=== PATIENT | male | born 1930 | race Caucasian/White ===

== ENCOUNTER 2016-08-01 23:31 | Emergency (ER) | payer MEDICARE, BC ==
[2016-08-01 23:38] VITALS: BP 143/68
--- NOTE | 2016-08-02 00:41 | EDM.PDOC ---
ED HPI GI/ABDOMINAL - General Chief Complaint: Abdominal Pain Stated Complaint: ABDOMINAL PAIN Time Seen by Provider: 08/02/16 00:04 Source of Information: Reports: Patient - History of Present Illness INITIAL COMMENTS - FREE TEXT/NARRATIVE: Patient sent here from [place] home for complaint of abdominal pain since yesterday. Says nothing improves it/makes it worse. Has had discomfort like this before but this time it is more persistent. No fevers. No vomiting but is nauseated at times. Feels like "something is in his throat" at times and this causes him to be less hungry. No fevers. Denies constipation. Had 3 small looser stools yesterday per patient. Has headache but this is long standing chronic on/off issue for him. He says tonight's headache is normal for him. No other HEENT changes. Denies chest pain/cough/acute respiratory changes. Had some soreness in left scapula yesterday but that resolved. No other muscle or body aches reported. No other complaints. Patient has been seen in past in ER for similar abdominal pain. Has large ventral hernia and scars from prior abdominal surgeries. Patient denies any changes in pain based on position/eating/drinking/going to bathroom. - Related Data Allergies/ADRs: Allergies Allergy/AdvReac Type Severity Reaction Status Date / Time Iodinated Contrast Media - Allergy Nausea and Verified 08/01/16 23:50 Oral and Vomiting [Iodinated Contrast Media - IV Dye] levofloxacin [From Levaquin] Allergy Cannot Verified 08/01/16 23:50 Remember Penicillins Allergy Hives Verified 08/01/16 23:50 Home Meds: Home Meds Aspirin [Halfprin] 81 mg PO QAM 09/19/14 [History] Brimonidine Tartrate [Brimonidine Tartrate 0.2% Ophth Soln] 1 drop EYEBOTH BID 09/19/14 [History] Cholecalciferol (Vitamin D3) [Vitamin D3] 400 unit PO QAM 09/19/14 [History] Latanoprost [Xalatan 0.005% Ophth Soln] 1 drop EYEBOTH BEDTIME 09/19/14 [History ] Multivitamin [Tab A Ritesh] 1 tab PO QAM 09/19/14 [History] Ranitidine [Zantac] 150 mg PO BID 09/19/14 [History] Simvastatin [Zocor] 20 mg PO BEDTIME 09/19/14 [History] Metoprolol Tartrate [Lopressor] 25 mg PO BID #0 09/23/14 [Rx] Acetaminophen [Tylenol Arthritis Pain] 1,300 mg PO BID 05/26/15 [History] Diclofenac Sodium [Voltaren 1% Gel] 1 applic TOP QID@07,11,15,19 05/26/15 [ History] Docusate Sodium [Colace] 1 tab PO TID 05/26/15 [History] Clopidogrel Bisulfate [Clopidogrel] 1 tab PO DAILY 08/15/15 [History] Finasteride [Proscar] 1 tab PO DAILY 08/15/15 [History] Oxybutynin Chloride [Ditropan Xl] 1 tab PO DAILY 08/15/15 [History] Tamsulosin HCl [Flomax] 1 cap PO BEDTIME 08/15/15 [History] Acetaminophen 325 mg PO DAILY PRN 08/16/15 [History] Methyl Salicylate/Menthol [Thera-Gesic Analgesic] 1 applic TOP ASDIRECTED PRN [History] Albuterol/Ipratropium [DuoNeb 3.0-0.5 MG/3 ML] 3 ml NEB Q4HRRT PRN #60 neb 08/20 [Rx] metFORMIN [Glucophage] 500 mg PO BID tablet 08/21/15 [Rx] Fluticasone Furoate [Flonase Sensimist] 2 sprays NASBOTH DAILY 08/01/16 [History ] Furosemide [Lasix] 40 mg PO DAILY 08/01/16 [History] Levothyroxine 75 mcg PO ACBREAKFAST 08/01/16 [History] Loratadine [Claritin] 10 mg NASBOTH DAILY PRN 08/01/16 [History] Loratadine [Claritin] 10 mg PO DAILY 08/01/16 [History] Sertraline [Zoloft] 100 mg PO DAILY 08/01/16 [History] ALPRAZolam [Xanax] 0.25 mg PO QAM PRN 08/02/16 [History] Magnesium Citrate 295 ml PO ASDIRECTED #2 solution 08/02/16 [Rx] Magnesium Hydroxide [Milk of Magnesia] 30 ml PO QID PRN 08/02/16 [History] Nystatin [Nystatin Crm] 15 gm TOP QID PRN 08/02/16 [History] Past Medical History HEENT History: Reports: Cataract, Glaucoma Cardiovascular History: Reports: Hypertension Respiratory History: Reports: COPD Gastrointestinal History: Reports: GERD, PUD Genitourinary History: Reports: BPH, Urinary incontinence Musculoskeletal History: Reports: Fracture Psychiatric History: Reports: Anxiety, Depression Endocrine/Metabolic History: Reports: Diabetes, type II - Infectious Disease History Infectious Disease History: Reports: MRSA - Past Surgical History HEENT Surgical History: Reports: Cataract surgery Musculoskeletal Surgical History: Reports: Hip replacement, Shoulder surgery Social & Family History - Tobacco Use Smoking Status *Q: Former Smoker Years of Tobacco use: 20 Used Tobacco, but Quit: Yes Month Tobacco Last Used: quit in 1959 Second Hand Smoke Exposure: No - Caffeine Use Caffeine Use: Reports: None - Alcohol Use Days Per Week of Alcohol Use: 0 - Recreational Drug Use Recreational Drug Use: No ED ROS GENERAL - Review of Systems Review Of Systems: See Below Constitutional: Reports: decreased appetite HEENT: Reports: No symptoms Respiratory: Reports: No Symptoms Cardiovascular: Reports: No symptoms. Denies: Chest pain GI/Abdominal: Reports: Abdominal pain, Nausea. Denies: Anorexia, Black stool, Bloody stool, Constipation, Difficulty swallowing, Distension, Hematemesis, Hematochezia, Melena, Mucous in stool, Vomiting : Reports: no symptoms Musculoskeletal: Reports: joint pain (left shoulder area yesterday) Skin: Reports: no symptoms Neurological: Reports: Headache. Denies: Confusion, Dizziness, Paresthesia, Change in Speech, Gait Disturbance Psychiatric: Reports: No symptoms ED EXAM, GI/ABD - Physical Exam Exam: See Below Exam Limited By: No limitations General Appearance: alert, WD/WN, no apparent distress Eyes: bilateral: normal appearance, EOMI Ears: normal external exam Nose: normal inspection Throat/Mouth: Normal inspection, Normal voice, No airway compromise Head: atraumatic, normocephalic Neck: normal inspection, supple, non-tender, full range of motion. No: lymphadenopathy (L), lymphadenopathy (R) Respiratory/Chest: no respiratory distress, no accessory muscle use, chest non- tender, crackles (at bases, moreso on right). No: wheezing, stridor Cardiovascular: regular rate, rhythm, no murmur GI/Abdominal: soft, hypoactive bowel sounds, tenderness (diffuse and equal complaint of tenderness all four quadrants. Non-focal and non-localizing. ). No : guarding, rebound, rigidity, aortic bruit Rectal (Males) Exam: Normal rectal tone, Heme - stool Back Exam: normal inspection. No: CVA tenderness (L), CVA tenderness (R) Extremities: normal inspection, non-tender Neurological: alert, no motor/sensory deficits Psychiatric: normal affect, normal mood Skin Exam: Warm, Dry, Intact, Normal color EKG INTERPRETATION EKG Date: 08/02/16 Time: 00:35 Rhythm: NSR Rate (beats/min): 69 [place]: normal P-wave: present QRS: normal ST-T: normal QT: normal Comparison: no change Course - Vital Signs Last Recorded V/S: Last Vital Signs Temp 36.7 C 08/01/16 23:31 Pulse 77 08/01/16 23:31 Resp 16 08/01/16 23:31 BP 143/68 H 08/01/16 23:31 Pulse Ox 99 08/01/16 23:31 - Orders/Labs/Meds Orders: Active Orders 24 hr Category Date Time Status EKG Documentation Completion [RC] ASDIRECTED Care 08/02/16 00:25 Active Abdomen Series w Chest 1V [CR] Stat Exams 08/02/16 00:23 Ordered OCCULT BLOOD DIAGNOSTIC [OP] Stat Lab 08/02/16 01:33 Ordered Labs: Laboratory Tests 08/02/16 08/02/16 08/02/16 Range/Units 00:30 00:30 00:30 WBC 11.1 H (4.0-10.2) K/uL RBC 4.27 L (4.33-5.41) M/uL Hgb 13.2 (13.1-16.8) g/dL Hct 41.1 (39.0-49.0) % MCV 96.3 (84.0-98.0) fL MCH 30.9 (28.2-33.3) pg MCHC 32.1 (31.7-36.0) g/dL RDW 13.5 (11.2-14.1) % Plt Count 242 (150-350) K/uL Neut % (Auto) 70.0 (45.0-80.0) % Lymph % (Auto) 16.8 (10.0-50.0) % [place] % (Auto) 8.6 (2.0-14.0) % Eos % (Auto) 3.4 (0.0-5.0) % Baso % (Auto) 1.2 (0.0-2.0) % Neut # (Auto) 7.78 H (1.40-7.00) K/uL Lymph # (Auto) 1.87 (0.50-3.50) K/uL [place] # (Auto) 0.95 (0.00-1.00) K/uL Eos # (Auto) 0.38 (0.00-0.50) K/uL Baso # (Auto) 0.13 (0.00-0.20) K/uL Sodium 139 (136-145) mmol/L Potassium 4.0 (3.5-5.1) mmol/L Chloride 100 (98-107) mmol/L Carbon Dioxide 28.5 (21.0-32.0) mmol/L BUN 28 H (7-18) mg/dL Creatinine 1.06 (0.51-1.17) mg/dL Est Cr Clr Drug Dosing 51.65 mL/min Estimated GFR (MDRD) > 60 mL/min Glucose 123 H (74-106) mg/dL Calcium 9.2 (8.5-10.1) mg/dL Total Bilirubin 0.3 (0.2-1.0) mg/dL AST 19 (15-37) U/L ALT 39 (12-78) U/L Alkaline Phosphatase 91 (46-116) IU/L Troponin I 0.007 (0.000-0.056) ng/mL Total Protein 7.3 (6.4-8.2) g/dL Albumin 4.2 (3.4-5.0) g/dL Specimen Type Urinblad Urine Color Yellow Urine Appearance Clear Urine pH 5.0 (5.0-9.0) Ur Specific [place] 1.015 (1.005-1.030) Urine Protein Negative (NEGATIVE) mg/dL Urine Glucose (UA) Negative (NEGATIVE) mg/dL Urine Ketones Negative (NEGATIVE) mg/dL Urine Occult Blood Trace-lysed H (NEGATIVE) Urine Nitrite Negative (NEGATIVE) Urine Bilirubin Negative (NEGATIVE) Urine Urobilinogen 0.2 (0.2-1.0) E.U./dL Ur Leukocyte Esterase Negative (NEGATIVE) Urine RBC 0-5 /HPF Urine WBC Not seen /HPF Ur Epithelial Cells Rare /LPF Urine Bacteria Occasional (NONE TO FEW) /HPF - Radiology Interpretation Free Text/Narrative:: Persistently elevated left hemidiaphragm on left that has been noted on previous films. Poorly defined cardiac and diaphragmatic borders inferiorly. CHF. Larger amount of stool noted in colon on right. - Re-Assessments/Exams Free Text/Narrative Re-Assessment/Exam: WBC slightly elevated. Chemistry/troponin/UA/EKG/CBC otherwise overall unremarkable. Xray shows larger amount of stool in colon on right. When patient told of this he said he has been having problems with having BMs and added "it doesn't want to move". When asked if he feels constipated, he said yes. Earlier during ROS he said "no" in response to this question. Plan at this time [facility] movement and see if this resolves his abdominal discomfort. Will recommend that he follow up with [facility] on Saturday if things have not improved. Chest film showed cardiac enlargement/CHF. Cannot rule out possible infiltrates inferiorly. Patient is not complaining of cough/SOB/fevers or other symptoms suggestive of pneumonia at this time. Departure - Departure Time of Disposition: 01:36 Disposition: DC/Tfer to SNF 03 Condition: good Clinical Impression: Abdominal pain Qualifiers: Abdominal location: generalized Qualified Code(s): R10.84 - Generalized abdominal pain Constipation Qualifiers: Constipation type: unspecified constipation type Qualified Code(s): K59.00 - Constipation, unspecified Prescriptions: Magnesium Citrate 295 ml PO ASDIRECTED #2 solution Referrals: Valentine Mayes PA [Primary Care Provider] - Forms: ED Department Discharge Additional Instructions: See if Mag Citrate therapy helps relieve patient's complaints of abdominal pain/ constipation. Watch for changes and follow up as needed. If no significant improvement have patient follow up with [facility] on Saturday. - My Orders Last 24 Hours: My Active Orders 08/02/16 00:23 Abdomen Series w Chest 1V [CR] Stat 08/02/16 00:25 EKG Documentation Completion [RC] ASDIRECTED 08/02/16 01:33 OCCULT BLOOD DIAGNOSTIC [OP] Stat - Assessment/Plan Last 24 Hours: My Active Orders 08/02/16 00:23 Abdomen Series w Chest 1V [CR] Stat 08/02/16 00:25 EKG Documentation Completion [RC] ASDIRECTED 08/02/16 01:33 OCCULT BLOOD DIAGNOSTIC [OP] Stat
[2016-08-02 00:54] LABS: CHLORIDE,CL 100 mmol/L (98-107); SODIUM,NA 139 mmol/L (136-145)
[2016-08-02] MEDS ORDERED: Magnesium Citrate Solution 296 ML Bottle PO ONE (01:59)
== END 2016-08-02 02:10 ==
LOC: LL.ED 23:31
DX: K59.00 Constipation, unspecified (principal); I10 Essential (primary) hypertension; J44.9 Chronic obstructive pulmonary disease, unspecified; K21.9 Gastro-esophageal reflux disease without esophagitis; F32.9 Major depressive disorder, single episode, unspecified; F41.9 Anxiety disorder, unspecified; E11.9 Type 2 diabetes mellitus without complications; Z87.891 Personal history of nicotine dependence; Z88.0 Allergy status to penicillin; Z79.899 Other long term (current) drug therapy; Z79.82 Long term (current) use of aspirin; Z88.8 Allergy status to other drugs, medicaments and biological substances
CPT/HCPCS: 36415; 74022; 80053; 81001; 82272; 84484; 85025; 93005; 99283; 99284; A9270

== ENCOUNTER 2017-06-13 11:52 | Day surgery (SDC) | payer MEDICARE, BC ==
[~2017-06-13 11:52] MED LIST: Lactated Ringers 1,000 ML IV SCH; Sodium Chloride 0.9% 10 ML Syringe FLUSH PRN
[2017-06-13] MEDS ORDERED: fentaNYL 100 MCG/2 ML SDV ONE ×2 (12:44→13:00)
[2017-06-13] MEDS ORDERED: Propofol 200 MG/20 ML SDV ONE ×2 (12:45→13:00)
[2017-06-13] MEDS ORDERED: Midazolam 1 MG/ML 2 ML SDV ONE ×2 (12:45→13:00)
--- NOTE | 2017-06-13 12:56 | PCM.PN ---
- General Info Date of Service: 06/13/17 - Review of Systems Systems Review Comment:: 86-year-old male referred by Valentine Mayes for upper endoscopy. Patient has been noticing more difficulty swallowing as well as some epigastric pain. I discussed the proposed upper endoscopy with the patient. He appears to understand and agrees to proceed. I have reviewed his recent history and physical and no significant changes are noted from that exam. He agrees to proceed accepting risks. - Patient Data Weight - Most Recent: 83.915 kg Lab Results Last 24 Hours: Laboratory Results - last 24 hr 06/13/17 Range/Units 12:25 POC Glucose 116 H (65-110) mg/dl Med Orders - Current: Current Medications Lactated Ringer's (Ringers, Lactated) 1,000 mls @ 125 mls/hr IV ASDIRECTED ANTOINETTE Sodium Chloride (Saline Flush) 10 ml FLUSH ASDIRECTED PRN PRN Reason: Keep Vein Open Discontinued Medications Fentanyl (Sublimaze) Confirm Administered Dose 100 mcg .ROUTE .STK-MED ONE Stop: 06/13/17 12:45 Midazolam HCl (Versed 1 Mg/Ml) Confirm Administered Dose 2 mg .ROUTE .STK-MED ONE Stop: 06/13/17 12:46 Propofol (Diprivan 20 Ml) Confirm Administered Dose 200 mg .ROUTE .STK-MED ONE Stop: 06/13/17 12:46 - Problem List Review Problem List Initiated/Reviewed/Updated: Yes - Assessment Assessment:: Dysphagia Epigastric pain
[2017-06-13] MEDS ORDERED: Lidocaine 2% 100 MG/5 ML Syringe ONE (13:00)
[2017-06-13] MEDS ORDERED: Lidocaine 2% 5 ML SDV ONE (13:00)
--- NOTE | 2017-06-13 13:45 | PCM.OPNOTE ---
- General Post-Op/Procedure Note Date of Surgery/Procedure: 06/13/17 Operative Procedure(s): EGD with Balloon Esophageal Dilation and Biopsy Findings: Small hiatal hernia with reflux esophagitis and mild esophageal stenosis Pre Op Diagnosis: Dysphagia Post-Op Diagnosis: Hiatal Hernia. Reflux Esophagitis. Esophageal stenosis Anesthesia Technique: MAC Primary Surgeon: Conner Michel Pathology: Biopsies of Gastric Antrum and Distal esophagus Output, Urine Amount: 0 EBL in mLs: 3 Complications: None Condition: Good Free Text/Narrative:: Intake & Output 06/12/17 06/13/17 06/13/17 22:59 06:59 14:59 Intake Total 500 Balance 500
--- NOTE | 2017-06-13 15:44 | OR ---
Date of Procedure: 06/13/2017 PREOPERATIVE DIAGNOSIS: Dysphagia. POSTOPERATIVE DIAGNOSES: Hiatal hernia with reflux esophagitis and esophageal stenosis. OPERATION PERFORMED: Esophagogastroduodenoscopy with biopsy and balloon esophageal dilation. INDICATIONS FOR SURGERY: This 86-year-old male has been having increasing difficulty with swallowing as well as some episodes of abdominal pain. He is referred for upper endoscopy. FINDINGS: The patient has a small hiatal hernia, estimated at 2 to 3 cm in size. There is a mild degree of irritation of the lower esophagus, just above this area, and mild stenosis at the GE junction. No evidence of abnormal growth or extrinsic or intrinsic masses noted. The remainder of the patient's stomach and his duodenum appeared normal. The upper portion of the stomach also appears normal and no abnormalities were seen in the oral or hypopharynx. DESCRIPTION OF PROCEDURE: The patient was taken to the operating room. He was given intravenous sedation and the esophagus was introduced into the oral cavity through the bite block. Examination as possible was carried out in the oral and hypopharynx, and after these areas were examined and felt to be clear, the esophagus was intubated under direct visualization with the gastroscope. This was advanced down through the esophagus, stomach, and into the duodenum, where examination to the 3rd portion was performed. After carefully examining the duodenum, the scope was withdrawn into the stomach, where full examination including retroflexed examination of the fundus was performed. Biopsies of the antrum were taken to rule out H. pylori. The GE junction and distal esophagus were examined and appeared that there may be a mild degree of stenosis here, so the dilating balloon was inserted and inflated to 54-[place] dilation performed of this region. Biopsies were also taken of this distal esophagus because the appearance of possible reflux esophagitis. The procedure was tolerated well by the patient, and at the end of the procedure, there were no visible signs of complication. The remainder of the esophagus looked normal as the scope was withdrawn. The patient was then taken from the operating room in satisfactory condition. ESTIMATED BLOOD LOSS: 3 mL. COMPLICATIONS: None. PROGNOSIS: Good. DEION Michel MD /[id number]
[2017-06-13 16:55] VITALS: BP 129/61
== END 2017-06-13 15:10 | disposition home or self-care (01) ==
LOC: LL.SDS 11:52
PROVIDERS: ATTEND Surgery
DX: K22.2 Esophageal obstruction (principal); K21.0 Gastro-esophageal reflux disease with esophagitis; K44.9 Diaphragmatic hernia without obstruction or gangrene; E11.9 Type 2 diabetes mellitus without complications; E78.00 Pure hypercholesterolemia, unspecified; I11.0 Hypertensive heart disease with heart failure; I50.9 Heart failure, unspecified; J30.9 Allergic rhinitis, unspecified; H40.10X0 Unspecified open-angle glaucoma, stage unspecified; J44.9 Chronic obstructive pulmonary disease, unspecified; M19.90 Unspecified osteoarthritis, unspecified site; E55.9 Vitamin D deficiency, unspecified; F32.9 Major depressive disorder, single episode, unspecified; F41.9 Anxiety disorder, unspecified; E03.9 Hypothyroidism, unspecified; N40.1 Benign prostatic hyperplasia with lower urinary tract symptoms; R35.1 Nocturia; G89.4 Chronic pain syndrome; I25.10 Atherosclerotic heart disease of native coronary artery without angina pectoris; Z86.73 Personal history of transient ischemic attack (TIA), and cerebral infarction without residual deficits; Z86.010 Personal history of colon polyps; Z88.0 Allergy status to penicillin; Z88.1 Allergy status to other antibiotic agents
CPT/HCPCS: 00731; 43239; 43249; 82962; J2250; J2704; J3010; J7120; 88305

== ENCOUNTER 2018-06-09 16:48 | Emergency (ER) | payer MEDICARE, BC ==
[2018-06-09] MEDS ORDERED: Famotidine 20 MG/2 ML SDV IVPUSH ONE (16:52)
[2018-06-09] MEDS ORDERED: Pantoprazole 40 MG Vial IVPUSH ONE (16:52)
[2018-06-09] MEDS ORDERED: Sodium Chloride 0.9% 10 ML Syringe FLUSH PRN (16:52)
--- NOTE | 2018-06-09 16:52 | EDM.PDOC ---
ED HPI GENERAL MEDICAL PROBLEM - General Chief Complaint: Abdominal Pain Stated Complaint: abdominal pain, body aches, increased psa Time Seen by Provider: 06/09/18 16:51 Source of Information: Reports: Patient, Longterm Records, Old Records ([facility] EMR. No paper hospital chart available.) History Limitations: Reports: No Limitations - History of Present Illness INITIAL COMMENTS - FREE TEXT/NARRATIVE: Patient was brought to the emergency room via transport vehicle from in [place] for progressive nonproductive cough during the last week with progressive generalized fatigue, weakness, and arthralgias. He did have a fever of 101 prior to arrival with O2 sat in the lower 80th percentile and mild dyspnea without wheezing or distress, however he was not transferred [facility]. He did get an influenza booster this season with no known exposure to infection. In addition, note that patient has been having some problems with urinary incontinence and recently diagnosed BPH with PSA elevation in the 11s. He denies any gross hematuria, colic, or other UTI symptoms. No recent history of heartburn, nausea, diarrhea, melena, gross hematochezia, or any food intolerance, including fatty foods, etc. , although he has had some nonspecific bilateral lower quadrant abdominal pain today. The patient denies any chest pain/pressure, heart flutter, dizziness, orthostasis, orthopnea, diaphoresis, paresthesias, recent decreased exercise tolerance, or any other anginal-type symptoms. He is a somewhat poor historian. Onset: Gradual Duration: Week(s): (As above) Location: Reports: Abdomen, Generalized. Denies: Head, Face, Neck, Chest, Back , Pelvis, Upper Extremity, Left, Upper Extremity, Right, Lower Extremity, Left, Radiates to Quality: Reports: Ache, Same as Previous Episode Severity: Moderate Improves with: Reports: None Worsens with: Reports: None Context: Reports: Other (As above). Denies: Sick Contact, Trauma Associated Symptoms: Reports: Cough, Fever/Chills, Shortness of Breath, Weakness , Other (Leg ulcer as below). Denies: Confusion, Chest Pain, cough w sputum, Diaphoresis, Headaches, Loss of Appetite, Malaise, Nausea/Vomiting, Seizure, Syncope Treatments SUPERVISOR CEREAL: Reports: Other (see below) (None) Generalized Pain Score (Numeric/FACES): 6 Bilateral Lower Abdominal Pain Score (Numeric/FACES): 6 - Related Data Allergies Allergy/AdvReac Type Severity Reaction Status Date / Time Iodinated Contrast- Oral and Allergy Nausea and Verified 06/09/18 16:56 IV Dye Vomiting [Iodinated Contrast Media - IV Dye] levofloxacin [From Levaquin] Allergy Cannot Verified 06/09/18 16:56 Remember Penicillins Allergy Hives Verified 06/09/18 16:56 Home Meds: Home Meds Aspirin [Halfprin] 81 mg PO QAM 09/19/14 [History] Brimonidine Tartrate [Brimonidine Tartrate 0.2% Ophth Soln] 1 drop EYEBOTH Q12H 09/19/14 [History] Cholecalciferol (Vitamin D3) [Vitamin D3] 400 unit PO QAM 09/19/14 [History] Latanoprost [Xalatan 0.005% Ophth Soln] 1 drop EYEBOTH BEDTIME 09/19/14 [History ] Simvastatin [Zocor] 20 mg PO BEDTIME 09/19/14 [History] Acetaminophen [Tylenol Arthritis Pain] 1,300 mg PO Q12H 05/26/15 [History] Diclofenac Sodium [Voltaren 1% Gel] 1 applic TOP QID@,,,05/26/15 [ History] Clopidogrel Bisulfate [Clopidogrel] 1 tab PO DAILY 08/15/15 [History] Finasteride [Proscar] 1 tab PO DAILY 08/15/15 [History] Oxybutynin Chloride [Ditropan Xl] 1 tab PO DAILY 08/15/15 [History] Tamsulosin HCl [Flomax] 1 cap PO BEDTIME 08/15/15 [History] Methyl Salicylate/Menthol [Thera-Gesic Analgesic] 1 applic TOP ASDIRECTED PRN [History] Furosemide [Lasix] 40 mg PO DAILY 08/01/16 [History] Levothyroxine 75 mcg PO ACBREAKFAST 08/01/16 [History] Sertraline [Zoloft] 100 mg PO DAILY 08/01/16 [History] Magnesium Hydroxide [Milk of Magnesia] 30 ml PO ASDIRECTED PRN 08/02/16 [History ] Nystatin [Nystatin Crm] 15 gm TOP QID PRN 08/02/16 [History] ALPRAZolam [Xanax] 0.25 mg PO Q12HR 06/13/17 [History] Metoprolol Tartrate [Lopressor] 25 mg PO Q12H 06/13/17 [History] Omeprazole Magnesium [Prilosec Otc] 20 mg PO DAILY 06/13/17 [History] metFORMIN [Glucophage] 500 mg PO Q12H 06/13/17 [History] Docusate Sodium [Colace] 100 mg PO DAILY PRN 06/09/18 [History] Past Medical History HEENT History: Reports: Allergic Rhinitis, Impaired Vision, Sinusitis, Other ( See Below) Other HEENT History: Chronic dry mouth. Recurrent allergic sinusitis. Patient wears glasses. Cardiovascular History: Reports: CAD, Heart Failure, High Cholesterol, Hypertension, Syncope Respiratory History: Reports: Bronchitis, Recurrent, COPD, Pneumonia, Recurrent Gastrointestinal History: Reports: Chronic Constipation, Colon Polyp, Diverticulosis, Gastritis, GERD, Helicobacter Pylori, PUD, Other (See Below) Other Gastrointestinal History: Sigmoid diverticulosis. Previous H. pylori infection with treatment status unknown. Dysphagia with history of esophageal stenosis requiring dilatation as below. Large chronic ventral abdominal hernia. Genitourinary History: Reports: BPH, Prostate Disorder, Retention, Urinary, Urinary Incontinence, UTI, Recurrent, Other (See Below) Other Genitourinary History: BPH with PSA elevation diagnosed in 2019. Musculoskeletal History: Reports: Arthritis, Back Pain, Chronic, Osteoarthritis , Other (See Below) Other Musculoskeletal History: Left rotator cuff tear. Chronic pain syndrome and myalgias Neurological History: Reports: Headaches, Chronic, TIA, Other (See Below) Other Neuro History: History of recurrent falls and nonspecific generalized weakness. 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 Psychiatric History: Reports: Anxiety, Depression, Panic Attack Endocrine/Metabolic History: Reports: Diabetes, Type II, Hypothyroidism, Vitamin D Deficiency Hematologic History: Reports: None Immunologic History: Reports: None Oncologic (Cancer) History: Reports: None Dermatologic History: Reports: None - Infectious Disease History Infectious Disease History: Reports: MRSA (Right leg ulcer) - Past Surgical History Head Surgeries/Procedures: Reports: None HEENT Surgical History: Reports: Cataract Surgery, Oral Surgery, Other (See Below) Other HEENT Surgeries/Procedures: Bilateral cataract surgery. Complete teeth extraction with complete dentures uppers and lowers. GI Surgical History: Reports: Colonoscopy, EGD, Other (See Below) Other GI Surgeries/Procedures: EGD with esophageal dilatation on 06/13/17. EGD and incomplete Colonoscopy to the ascending colon on 05/26/15. Musculoskeletal Surgical History: Reports: Hip Replacement, Shoulder Surgery, Other (See Below) Other Musculoskeletal Surgeries/Procedures:: Left hip TEP with patient denying previous total knee arthroplasty despite [facility] records. Social & Family History - Family History Family Medical History: Unobtainable - Tobacco Use Smoking Status *Q: Former Smoker Tobacco Use Within Last Twelve Months: No Packs/Tins Daily Comment: Stop smoking in 1959. Used Tobacco, but Quit: Yes Smoking Cessation Information Provided To Patient: No Second Hand Smoke Exposure: No Second Hand Smoke Education Provided: No - Caffeine Use Caffeine Use: Reports: None - Living Situation & Occupation Living situation: Reports: Extended Care Facility ( in [facility]) ED ROS GENERAL - Review of Systems Review Of Systems: ROS reveals no pertinent complaints other than HPI. ED EXAM, GENERAL - Physical Exam Exam: See Below Exam Limited By: No Limitations General Appearance: Alert, WD/WN, No Apparent Distress Eye Exam: Bilateral Eye: EOMI, Normal Fundi, Normal Inspection (No nystagmus. Patient wearing glasses.), PERRL Ears: Normal External Exam, Normal Canal, Normal TMs, Hearing Loss (Mild bilateral presbycusis) Nose: Clear Rhinorrhea (Mild bilateral) Throat/Mouth: Normal Lips, Normal Gums, Normal Oropharynx, Normal Voice, No Airway Compromise. No: Normal Teeth (Complete dentures uppers and lowers), Dysphagia, Perioral Cyanosis Head: Atraumatic, Normocephalic. No: Facial Swelling, Facial Tenderness Neck: Supple, Non-Tender, Full Range of Motion, Carotid Bruit (Mild bilateral carotid bruits). No: Lymphadenopathy (L), Lymphadenopathy (R), Thyromegaly Respiratory/Chest: No Respiratory Distress, No Accessory Muscle Use, Chest Non- Tender, Rales (Moderate bilateral basilar rales). No: Pleural Rub, Retractions Cardiovascular: Normal Peripheral Pulses, Regular Rate, Rhythm, No Gallop, No JVD, No Murmur, No Rub. No: No Edema (Dependent edema as below), Gallop/S3, Gallop/S4, Friction Rub Peripheral Pulses: 2+: Radial (L), Radial (R), Dorsalis Pedis (L), Dorsalis Pedis (R) GI/Abdominal: Soft, No Organomegaly, No Distention, No Abnormal Bruit, Pelvis Stable, Tender (Nonspecific mild bilateral lower quadrant palpation pain), Hernia (Stable by history 56 centimeter supraumbilical ventral wall abdominal hernia). No: Guarding, Rebound (Male) Exam: Deferred Rectal (Males) Exam: Normal Rectal Tone, BPH (Moderate nodular BPH especially in right superior region), Heme - Stool, Hemorrhoids (Grade 2 internal/external hemorrhoids), Prostate Nodule (As above). No: Fecal Impaction, Tenderness (No Damon space tenderness) Back Exam: Decreased Range of Motion (Mild secondary to arthritis), Other ( Moderate scoliosis). No: CVA Tenderness (L), CVA Tenderness (R), Muscle Spasm Extremities: Normal Range of Motion, Non-Tender, Pedal Edema (+1 bilateral pedal /pretibial edema), Other (1 centimeter in diameter superficial grade 12 ulcers 2 in the mid to distal anterior left tibial region with inspection after dressing removed). No: Lauren's Sign, Increased Warmth Neurological: Alert, Oriented, CN II-XII Intact, Normal Cognition, Normal Reflexes (Negative Babinski's), No Motor/Sensory Deficits, Other (Moderate Resting tremor, rigidity, and cogwheeling) Psychiatric: Anxious (Mild), Depressed Mood (Mild) Skin Exam: Wound/Incision (As above). No: Diaphoretic, Ecchymosis, Increased Warmth, Lymphangitis, Petechiae Lymphatic: No Adenopathy Course - Vital Signs Last Recorded V/S: Last Vital Signs Temp 37.3 C 06/09/18 20:00 Pulse 85 06/09/18 19:00 Resp 20 06/09/18 20:39 BP 122/60 06/09/18 20:39 Pulse Ox 98 06/09/18 20:39 Vital Signs - 24 hr 06/09/18 06/09/18 06/09/18 16:55 17:00 17:32 Temperature [ 38.1 C Temporal] Pulse, 88 Peripheral [ Left Pulse Oximetry] Respiratory 20 Rate Blood Pressure 113/49 L 133/51 L [Right Upper Arm] O2 Sat by Pulse 82 L 97 Oximetry 06/09/18 06/09/18 06/09/18 17:42 17:55 18:12 Temperature [ Temporal] Pulse, 83 94 86 Peripheral [ Left Pulse Oximetry] Respiratory 18 Rate Blood Pressure 121/53 L 112/59 L 119/50 L [Right Upper Arm] O2 Sat by Pulse 100 99 100 Oximetry 06/09/18 06/09/18 06/09/18 18:27 18:42 19:00 Temperature [ Temporal] Pulse, 90 88 85 Peripheral [ Left Pulse Oximetry] Respiratory Rate Blood Pressure 121/46 L 110/47 L 116/48 L [Right Upper Arm] O2 Sat by Pulse 99 99 99 Oximetry 06/09/18 06/09/18 06/09/18 19:15 19:29 19:45 Temperature [ Temporal] Pulse, Peripheral [ Left Pulse Oximetry] Respiratory 19 16 20 Rate Blood Pressure 117/50 L 110/43 L 109/46 L [Right Upper Arm] O2 Sat by Pulse 98 99 100 Oximetry 06/09/18 20:00 Temperature [ 37.3 C Temporal] Pulse, Peripheral [ Left Pulse Oximetry] Respiratory 19 Rate Blood Pressure 118/59 L [Right Upper Arm] O2 Sat by Pulse 99 Oximetry - Orders/Labs/Meds Orders: Active Orders 24 hr Category Date Time Status Bladder Scan [RC] ASDIRECTED Care 06/09/18 19:00 Active Cardiac Monitoring [RC] . DIRECTED Care 06/09/18 19:12 Active Oxygen Therapy, ED [RC] CONTINUOUS Care 06/09/18 16:55 Active Peripheral IV Care [RC] . DIRECTED Care 06/09/18 16:52 Active Nothing Per Oral Diet [DIET] Diet 06/09/18 Breakfast Active Abdomen Series w Chest 1V [CR] Stat Exams 06/09/18 16:52 Taken CULTURE BLOOD [BC] Stat Lab 06/09/18 17:00 Received CULTURE BLOOD [BC] Stat Lab 06/09/18 17:05 Received CULTURE STREP A CONFIRMATION [RM] Stat Lab 06/09/18 16:55 Results CULTURE URINE [] Stat Lab 06/09/18 20:25 Received CULTURE WOUND + SMEAR [RM] Stat Lab 06/09/18 18:17 Results STREP SCRN A RAPID W CULT CONF [RM] Stat Lab 06/09/18 16:55 Results Sodium Chloride 0.9% [Saline Flush] Med 06/09/18 16:52 Active 10 ml FLUSH ASDIRECTED PRN Blood Culture x2 Reflex Set [OM.PC] Urgent Oth 06/09/18 16:52 Ordered Obtain Past Medical Record [OM.PC] Urgent Oth 06/09/18 16:52 Active Peripheral IV Insertion Adult [OM.PC] Stat Oth 06/09/18 16:52 Ordered Resuscitation Status Stat Resus Stat 06/09/18 16:52 Ordered Medication Orders Sodium Chloride (Saline Flush) 10 ml FLUSH ASDIRECTED PRN PRN Reason: Keep Vein Open Last Admin: 06/09/18 19:45 Dose: 10 ml Labs: Laboratory Tests 06/09/18 06/09/18 06/09/18 Range/Units 17:00 17:05 17:05 WBC 9.4 (4.0-10.2) K/uL RBC 3.51 L (4.33-5.41) M/uL Hgb 10.2 L D (13.1-16.8) g/dL Hct 32.4 L (39.0-49.0) % MCV 92.3 D (84.0-98.0) fL MCH 29.1 (28.2-33.3) pg MCHC 31.5 L (31.7-36.0) g/dL RDW 13.8 (11.2-14.1) % Plt Count 219 (150-350) K/uL Neut % (Auto) 84.3 H (45.0-80.0) % Lymph % (Auto) 4.1 L (10.0-50.0) % Cole % (Auto) 9.4 (2.0-14.0) % Eos % (Auto) 1.7 (0.0-5.0) % Baso % (Auto) 0.5 (0.0-2.0) % Neut # (Auto) 7.88 H (1.40-7.00) K/uL Lymph # (Auto) 0.38 L (0.50-3.50) K/uL Cole # (Auto) 0.88 (0.00-1.00) K/uL Eos # (Auto) 0.16 (0.00-0.50) K/uL Baso # (Auto) 0.05 (0.00-0.20) K/uL PT (9.5-12.0) SEC INR APTT (21.0-31.3) SEC Sodium (136-145) mmol/L Potassium (3.5-5.1) mmol/L Chloride (98-107) mmol/L Carbon Dioxide (21.0-32.0) mmol/L BUN (7-18) mg/dL Creatinine (0.51-1.17) mg/dL Est Cr Clr Drug Dosing Estimated GFR (MDRD) mL/min Glucose (74-106) mg/dL Lactic Acid 1.2 (0.4-2.0) mmol/L Uric Acid (2.6-7.2) mg/dL Calcium (8.5-10.1) mg/dL Magnesium (1.8-2.4) mg/dL Total Bilirubin (0.2-1.0) mg/dL AST (15-37) U/L ALT (12-78) U/L Alkaline Phosphatase (46-116) IU/L Creatine Kinase (26-308) U/L Creatine Kinase Index (0.0-2.5) % CK-MB (CK-2) (0.00-3.60) ng/mL Troponin I (0.000-0.056) ng/mL NT-Pro-B Natriuret Pep (0-125) pg/mL Total Protein (6.4-8.2) g/dL Albumin (3.4-5.0) g/dL Amylase 20 L (25-115) U/L Lipase (73-393) U/L Specimen Type Urine Color Urine Appearance Urine pH (5.0-9.0) Ur Specific [place] (1.005-1.030) Urine Protein (NEGATIVE) mg/dL Urine Glucose (UA) (NEGATIVE) mg/dL Urine Ketones (NEGATIVE) mg/dL Urine Occult Blood (NEGATIVE) Urine Nitrite (NEGATIVE) Urine Bilirubin (NEGATIVE) Urine Urobilinogen (0.2-1.0) E.U./dL Ur Leukocyte Esterase (NEGATIVE) Urine RBC /HPF Urine WBC /HPF Ur Epithelial Cells /LPF Urine Bacteria (NONE TO FEW) /HPF 06/09/18 06/09/18 06/09/18 Range/Units 17:05 17:05 17:05 WBC (4.0-10.2) K/uL RBC (4.33-5.41) M/uL Hgb (13.1-16.8) g/dL Hct (39.0-49.0) % MCV (84.0-98.0) fL MCH (28.2-33.3) pg MCHC (31.7-36.0) g/dL RDW (11.2-14.1) % Plt Count (150-350) K/uL Neut % (Auto) (45.0-80.0) % Lymph % (Auto) (10.0-50.0) % Cole % (Auto) (2.0-14.0) % Eos % (Auto) (0.0-5.0) % Baso % (Auto) (0.0-2.0) % Neut # (Auto) (1.40-7.00) K/uL Lymph # (Auto) (0.50-3.50) K/uL Cole # (Auto) (0.00-1.00) K/uL Eos # (Auto) (0.00-0.50) K/uL Baso # (Auto) (0.00-0.20) K/uL PT 11.1 (9.5-12.0) SEC INR 1.0 APTT 33.6 H (21.0-31.3) SEC Sodium 137 (136-145) mmol/L Potassium 3.7 (3.5-5.1) mmol/L Chloride 101 (98-107) mmol/L Carbon Dioxide 27.7 (21.0-32.0) mmol/L BUN 27 H (7-18) mg/dL Creatinine 1.43 H (0.51-1.17) mg/dL Est Cr Clr Drug Dosing TNP Estimated GFR (MDRD) 47 mL/min Glucose 131 H (74-106) mg/dL Lactic Acid (0.4-2.0) mmol/L Uric Acid 6.7 (2.6-7.2) mg/dL Calcium 8.9 (8.5-10.1) mg/dL Magnesium 1.6 L (1.8-2.4) mg/dL Total Bilirubin 0.3 (0.2-1.0) mg/dL AST 18 (15-37) U/L ALT 21 (12-78) U/L Alkaline Phosphatase 98 (46-116) IU/L Creatine Kinase 119 (26-308) U/L Creatine Kinase Index 1.9 (0.0-2.5) % CK-MB (CK-2) 2.30 (0.00-3.60) ng/mL Troponin I 0.007 (0.000-0.056) ng/mL NT-Pro-B Natriuret Pep 778 H (0-125) pg/mL Total Protein 6.8 (6.4-8.2) g/dL Albumin 3.4 (3.4-5.0) g/dL Amylase (25-115) U/L Lipase 48 L (73-393) U/L Specimen Type Urine Color Urine Appearance Urine pH (5.0-9.0) Ur Specific [place] (1.005-1.030) Urine Protein (NEGATIVE) mg/dL Urine Glucose (UA) (NEGATIVE) mg/dL Urine Ketones (NEGATIVE) mg/dL Urine Occult Blood (NEGATIVE) Urine Nitrite (NEGATIVE) Urine Bilirubin (NEGATIVE) Urine Urobilinogen (0.2-1.0) E.U./dL Ur Leukocyte Esterase (NEGATIVE) Urine RBC /HPF Urine WBC /HPF Ur Epithelial Cells /LPF Urine Bacteria (NONE TO FEW) /HPF 06/09/18 Range/Units 20:25 WBC (4.0-10.2) K/uL RBC (4.33-5.41) M/uL Hgb (13.1-16.8) g/dL Hct (39.0-49.0) % MCV (84.0-98.0) fL MCH (28.2-33.3) pg MCHC (31.7-36.0) g/dL RDW (11.2-14.1) % Plt Count (150-350) K/uL Neut % (Auto) (45.0-80.0) % Lymph % (Auto) (10.0-50.0) % Cole % (Auto) (2.0-14.0) % Eos % (Auto) (0.0-5.0) % Baso % (Auto) (0.0-2.0) % Neut # (Auto) (1.40-7.00) K/uL Lymph # (Auto) (0.50-3.50) K/uL Cole # (Auto) (0.00-1.00) K/uL Eos # (Auto) (0.00-0.50) K/uL Baso # (Auto) (0.00-0.20) K/uL PT (9.5-12.0) SEC INR APTT (21.0-31.3) SEC Sodium (136-145) mmol/L Potassium (3.5-5.1) mmol/L Chloride (98-107) mmol/L Carbon Dioxide (21.0-32.0) mmol/L BUN (7-18) mg/dL Creatinine (0.51-1.17) mg/dL Est Cr Clr Drug Dosing Estimated GFR (MDRD) mL/min Glucose (74-106) mg/dL Lactic Acid (0.4-2.0) mmol/L Uric Acid (2.6-7.2) mg/dL Calcium (8.5-10.1) mg/dL Magnesium (1.8-2.4) mg/dL Total Bilirubin (0.2-1.0) mg/dL AST (15-37) U/L ALT (12-78) U/L Alkaline Phosphatase (46-116) IU/L Creatine Kinase (26-308) U/L Creatine Kinase Index (0.0-2.5) % CK-MB (CK-2) (0.00-3.60) ng/mL Troponin I (0.000-0.056) ng/mL NT-Pro-B Natriuret Pep (0-125) pg/mL Total Protein (6.4-8.2) g/dL Albumin (3.4-5.0) g/dL Amylase (25-115) U/L Lipase (73-393) U/L Specimen Type Urinvoid Urine Color Yellow Urine Appearance Clear Urine pH 5.5 (5.0-9.0) Ur Specific [place] 1.015 (1.005-1.030) Urine Protein Negative (NEGATIVE) mg/dL Urine Glucose (UA) Negative (NEGATIVE) mg/dL Urine Ketones Negative (NEGATIVE) mg/dL Urine Occult Blood Negative (NEGATIVE) Urine Nitrite Negative (NEGATIVE) Urine Bilirubin Negative (NEGATIVE) Urine Urobilinogen 0.2 (0.2-1.0) E.U./dL Ur Leukocyte Esterase Negative (NEGATIVE) Urine RBC 0-5 /HPF Urine WBC Not seen /HPF Ur Epithelial Cells Rare /LPF Urine Bacteria Rare (NONE TO FEW) /HPF Blood cultures 2 collected Specimen from left leg for Gram stain, culture, and sensitivity collected Urine specimen obtained shortly prior to discharge with specimen set up for culture and sensitivity Microbiology 06/09/18 18:17 Gram Stain - Final Leg, Left 06/09/18 16:54 Influenza Type A Antigen Screen - Final Nasal, Left Positive Influenza A Ag Influenza Type B Antigen Screen - Final NEGATIVE INFLUENZA B VIRUS AG 06/09/18 17:15 Stool Occult Blood (MELONIE) - Final Stool / Feces NEGATIVE OCCULT BLOOD 06/09/18 16:55 Group A Streptococcus Rapid Screen - Final Throat NEGATIVE STREP A SCREEN Meds: Medications Generic Name Dose Route Start Last Admin Trade Name Freq PRN Reason Stop Dose Admin Sodium Chloride 10 ml 06/09/18 16:52 06/09/18 19:45 Saline Flush FLUSH 10 ml ASDIRECTED PRN Administration Keep Vein Open Discontinued Medications Generic Name Dose Route Start Last Admin Trade Name Freq PRN Reason Stop Dose Admin Famotidine 40 mg 06/09/18 16:52 06/09/18 17:00 Pepcid IVPUSH 06/09/18 16:53 40 mg ONETIME ONE Administration Furosemide 60 mg 06/09/18 19:39 06/09/18 19:44 Lasix IVPUSH 06/09/18 19:40 60 mg NOW ONE Administration Ceftriaxone Sodium 1 gm/ 100 mls @ 200 mls/hr 06/09/18 19:29 06/09/18 19:45 Sodium Chloride IV 06/09/18 19:58 200 mls/hr ONETIME ONE Administration Pantoprazole Sodium 40 mg 06/09/18 16:52 06/09/18 17:00 Protonix Iv IVPUSH 06/09/18 16:53 40 mg ONETIME ONE Administration - Radiology Interpretation Free Text/Narrative:: 3D Animator shows normal sinus rhythm with heart rate in the 80s to 90s with no ectopy or arrhythmia. Acute abdominal x-rays shows evidence of moderate scoliosis and osteoarthritis in the spine region with additional mild diffuse stool but no free air, ileus, obstruction, or fluid levels. Note status post left hip TEP. Moderate COPD changes with moderate cardiomegaly and centralized CHF with moderate left pleural effusion and/or pulmonary consolidation. Moderate aortic valve calcification. Surgical clips noted in the pelvic region. Departure - Departure Time of Disposition: 20:50 Disposition: DC/Tfer to [facility] 02 Clinical Impression: Influenza, CHF, Congestive heart failure, Renal insufficiency, Hypomagnesemia, Parkinsons disease, Peptic reflux disease, Mixed anxiety depressive disorder Osteoarthritis Qualifiers: Osteoarthritis location: multiple joints Osteoarthritis type: primary Qualified Code(s): M15.0 - Primary generalized (osteo)arthritis COPD (chronic obstructive pulmonary disease) Qualifiers: COPD type: COPD with acute lower respiratory infection Qualified Code(s): J44.0 - Chronic obstructive pulmonary disease with acute lower respiratory infection Hypertension Qualifiers: Hypertension type: essential hypertension Qualified Code(s): I10 - Essential ( primary) hypertension BPH (benign prostatic hypertrophy) Qualifiers: Lower urinary tract symptom presence: symptoms present Lower urinary tract symptom detail: unspecified Qualified Code(s): N40.1 - Benign prostatic hyperplasia with lower urinary tract symptoms Abdominal pain Qualifiers: Abdominal location: generalized Qualified Code(s): R10.84 - Generalized abdominal pain Leg ulcer, left Qualifiers: Non-pressure ulcer stage: unspecified non-pressure ulcer stage Qualified Code(s ): L97.929 - Non-pressure chronic ulcer of unspecified part of left lower leg with unspecified severity Anemia Qualifiers: Anemia type: unspecified type Qualified Code(s): D64.9 - Anemia, unspecified Diabetes mellitus Qualifiers: Diabetes mellitus type: type 2 Diabetes mellitus half-way insulin use: without power plant operators supervisor use Diabetes mellitus complication status: with kidney complications Diabetes mellitus complication detail: with chronic kidney disease Chronic kidney disease stage: stage 3 (moderate) Qualified Code(s): E11.22 - Type 2 diabetes mellitus with diabetic chronic kidney disease - Discharge Information *PRESCRIPTION DRUG MONITORING PROGRAM REVIEWED*: Not Applicable *COPY OF PRESCRIPTION DRUG MONITORING REPORT IN PATIENT MARLENE: Not Applicable Referrals: Sheets-Marie Brumfield MD [Primary Care Provider] - Forms: ED Department Discharge, Interfacility Transfer EMTALA - Problem List & Annotations (1) Influenza SNOMED Code(s): 8940974 Code(s): J11.1 - FLU DUE TO UNIDENTIFIED INFLUENZA VIRUS W OTH RESP MANIFEST Status: Acute Priority: High Current Visit: Yes Onset Date: ~06/09/18 Annotation/Comment:: Note newly diagnosed influenza A infection with symptoms present for one week. Patient not a candidate for Tamiflu at this time secondary to duration of his illness. Note probable concomitant left lower lobe pneumonia and pleural effusion/CHF. Initial telephone consultation with the [facility] in [place] at 19:10 hours with subsequent telephone consultation at 19: [address] Felix, hospitalist, who does accept patient for direct admission, with no further treatment recommendations given. IV Rocephin initiated prior to transfer the patient to [place]. Ambulance transfer with tube splicer accompaniment. (2) Pneumonia SNOMED Code(s): 694933343 Code(s): J18.9 - PNEUMONIA, UNSPECIFIED ORGANISM Status: Acute Priority: High Current Visit: Yes Onset Date: ~06/09/18 Annotation/Comment:: Probable left lower lobe pneumonia with IV Rocephin initiated as above. Qualifiers: Pneumonia type: due to influenza A virus Laterality: left Lung location: lower lobe of lung Qualified Code(s): J11.00 - Influenza due to unidentified influenza virus with unspecified type of pneumonia (3) CHF, Congestive heart failure SNOMED Code(s): 78795179 Code(s): I50.9 - HEART FAILURE, UNSPECIFIED Status: Acute Priority: Medium Current Visit: Yes Annotation/Comment:: Left pleural effusion and/or pulmonary infiltrate as above. No chest pain or anginal type symptoms with chest pain protocol not initiated in the emergency room. Cardiac enzymes are normal with exception of elevated BNP. High-dose IV Lasix therapy given prior to transfer. Note NO CODE STATUS with no further echocardiogram, etc. recommended. (4) COPD (chronic obstructive pulmonary disease) SNOMED Code(s): 50315900 Code(s): J44.9 - CHRONIC OBSTRUCTIVE PULMONARY DISEASE, UNSPECIFIED Status : Acute Priority: High Current Visit: Yes Onset Date: 06/09/18 Annotation/Comment:: Influenza A infection as above. IV Rocephin initiated. Sputum specimen could not be collected. Blood cultures 2 were collected. Consider nebulizer therapy with no significant rhonchi or wheezes today. Patient is not normally on nebulizer therapy. PFTs once current infection has resolved. Qualifiers: COPD type: COPD with acute lower respiratory infection Qualified Code(s): J44.0 - Chronic obstructive pulmonary disease with acute lower respiratory infection (5) Abdominal pain SNOMED Code(s): 85371775 Code(s): R10.9 - UNSPECIFIED ABDOMINAL PAIN Status: Acute Priority: High Current Visit: Yes Onset Date: ~06/09/18 Annotation/Comment:: Nonspecific lower quadrant abdominal pain possibly secondary to his BPH, urinary retention, etc. With history of diverticulosis. Note negative Hemoccult as above. Patient does have a previous history of chronic nonspecific abdominal pain as above. Unable to obtain urine specimen in the emergency room until IV Lasix therapy was given as above. Bladder scan shows 349 mL of urinary retention prior to this. High-dose IV sedation and IV Protonix given the emergency room as GI prophylaxis. Note normal amylase and lipase. Qualifiers: Abdominal location: generalized Qualified Code(s): R10.84 - Generalized abdominal pain (6) Anemia SNOMED Code(s): 887859420 Code(s): D64.9 - ANEMIA, UNSPECIFIED Status: Acute Priority: Medium Current Visit: Yes Onset Date: 06/09/18 Annotation/Comment:: Newly diagnosed possibly secondary to his renal insufficiency. No evidence of lower GI bleed with negative Hemoccult as above. Consider workup including iron studies, etc. Qualifiers: Anemia type: unspecified type Qualified Code(s): D64.9 - Anemia, unspecified (7) Hypomagnesemia SNOMED Code(s): 886791974 Code(s): E83.42 - HYPOMAGNESEMIA Status: Acute Priority: Medium Current Visit: Yes Onset Date: 06/09/18 Annotation/Comment:: Initiation of magnesium oxide therapy recommended especially in light of his Lasix therapy.. (8) Leg ulcer, left SNOMED Code(s): 78422041 Code(s): L97.929 - NON-PRS CHRONIC ULC UNSP PRT OF L LOW LEG W UNSP SEVERITY Status: Acute Priority: Medium Current Visit: Yes Annotation/Comment:: Specimen collected for culture, sensitivity, and Gram stain. 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 Qualifiers: Non-pressure ulcer stage: unspecified non-pressure ulcer stage Qualified Code(s): L97.929 - Non-pressure chronic ulcer of unspecified part of left lower leg with unspecified severity (9) Osteoarthritis SNOMED Code(s): 550916275 Code(s): M19.90 - UNSPECIFIED OSTEOARTHRITIS, UNSPECIFIED SITE Status: Chronic Priority: Medium Current Visit: Yes Annotation/Comment:: Chronic pain syndrome and arthralgias with possible aggravation from current influenza A. Qualifiers: Osteoarthritis location: multiple joints Osteoarthritis type: primary Qualified Code(s): M15.0 - Primary generalized (osteo)arthritis (10) Parkinsons disease SNOMED Code(s): 64536176 Code(s): G20 - PARKINSON'S DISEASE Status: Chronic Priority: Medium Current Visit: Yes Onset Date: ~06/09/18 Annotation/Comment:: History of chronic tremor with Parkinson's disease diagnosed by my clinical exam today. (11) Hypertension SNOMED Code(s): 24425221 Code(s): I10 - ESSENTIAL (PRIMARY) HYPERTENSION Status: Chronic Priority : Medium Current Visit: Yes Annotation/Comment:: Blood Pressures stable in the emergency room. Continue to observe closely by accepting providers.. Qualifiers: Hypertension type: essential hypertension Qualified Code(s): I10 - Essential (primary) hypertension (12) BPH (benign prostatic hypertrophy) SNOMED Code(s): 645764808 Code(s): N40.0 - BENIGN PROSTATIC HYPERPLASIA WITHOUT LOWER URINRY TRACT SYMP Status: Chronic Priority: High Current Visit: Yes Annotation/ Comment:: Nodular BPH with recent PSA elevation and probable prostate cancer. Urology consultation scheduled for 06/18/[address] Gibson from [facility] in [place], Qualifiers: Lower urinary tract symptom presence: symptoms present Lower urinary tract symptom detail: unspecified Qualified Code(s): N40.1 - Benign prostatic hyperplasia with lower urinary tract symptoms (13) Peptic reflux disease SNOMED Code(s): 908731656 Code(s): K21.9 - GASTRO-ESOPHAGEAL REFLUX DISEASE WITHOUT ESOPHAGITIS Status: Chronic Priority: Medium Current Visit: Yes Annotation/Comment:: Otherwise stable by history. IV Pepcid and IV Protonix given as above. (14) Renal insufficiency SNOMED Code(s): 012456835, 696784889 Code(s): N28.9 - DISORDER OF KIDNEY AND URETER, UNSPECIFIED Status: Acute Priority: Medium Current Visit: Yes Onset Date: 06/09/18 Annotation/ Comment:: Newly diagnosed today. Continue to observe renal status closely especially in light of IV Lasix therapy and current BPH with PSA elevation with some urinary retention today as above. 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 DIRECTED Abdomen Series w Chest 1V [CR] Stat Sodium Chloride 0.9% [Saline Flush] 10 ml FLUSH ASDIRECTED PRN Blood Culture x2 Reflex Set [OM.PC] Urgent Obtain Past Medical Record [OM.PC] Urgent Peripheral IV Insertion Adult [OM.PC] Stat Resuscitation Status Stat 06/09/18 16:55 Oxygen Therapy, ED [RC] CONTINUOUS CULTURE STREP A CONFIRMATION [] Stat STREP SCRN A RAPID W CULT CONF [RM] Stat 06/09/18 17:00 CULTURE BLOOD [BC] Stat 06/09/18 17:05 CULTURE BLOOD [BC] Stat 06/09/18 18:17 CULTURE WOUND + SMEAR [RM] Stat 06/09/18 19:00 Bladder Scan [RC] ASDIRECTED 06/09/18 19:12 Cardiac Monitoring [RC] . DIRECTED 06/09/18 20:25 CULTURE URINE [RM] Stat 06/09/18 Breakfast Nothing Per Oral Diet [DIET] - Assessment/Plan Last 24 Hours: My Active Orders 06/09/18 16:52 Peripheral IV Care [RC] . DIRECTED Abdomen Series w Chest 1V [CR] Stat Sodium Chloride 0.9% [Saline Flush] 10 ml FLUSH ASDIRECTED PRN Blood Culture x2 Reflex Set [OM.PC] Urgent Obtain Past Medical Record [OM.PC] Urgent Peripheral IV Insertion Adult [OM.PC] Stat Resuscitation Status Stat 06/09/18 16:55 Oxygen Therapy, ED [RC] CONTINUOUS CULTURE STREP A CONFIRMATION [RM] Stat STREP SCRN A RAPID W CULT CONF [RM] Stat 06/09/18 17:00 CULTURE BLOOD [BC] Stat 06/09/18 17:05 CULTURE BLOOD [BC] Stat 06/09/18 18:17 CULTURE WOUND + SMEAR [RM] Stat 06/09/18 19:00 Bladder Scan [RC] ASDIRECTED 06/09/18 19:12 Cardiac Monitoring [RC] . DIRECTED 06/09/18 20:25 CULTURE URINE [RM] Stat 06/09/18 Breakfast Nothing Per Oral Diet [DIET] Assessment:: As above Plan: As above. Extensive precautions were given to the patient, who is in agreement with the treatment plan. Ambulance transfer to [place] via ambulance as above.
[2018-06-09 17:26] LABS: CHLORIDE,CL 101 mmol/L (98-107); SODIUM,NA 137 mmol/L (136-145)
[2018-06-09] MEDS ORDERED: cefTRIAXone 1 GM in Sodium Chloride 0.9% 100 ML IV ONE (19:29)
[2018-06-09] MEDS ORDERED: Furosemide 40 MG/4 ML VIAL IVPUSH ONE (19:39)
[2018-06-09 20:40] VITALS: BP 122/60
== END 2018-06-09 20:50 ==
LOC: LL.ED 16:48
DX: J11.1 Influenza due to unidentified influenza virus with other respiratory manifestations (principal); I11.0 Hypertensive heart disease with heart failure; I50.9 Heart failure, unspecified; N28.9 Disorder of kidney and ureter, unspecified; M19.90 Unspecified osteoarthritis, unspecified site; G20 Parkinson's disease; N40.0 Benign prostatic hyperplasia without lower urinary tract symptoms; K21.9 Gastro-esophageal reflux disease without esophagitis; E83.42 Hypomagnesemia; F41.8 Other specified anxiety disorders; E11.9 Type 2 diabetes mellitus without complications; Z79.82 Long term (current) use of aspirin; Z79.899 Other long term (current) drug therapy; Z86.73 Personal history of transient ischemic attack (TIA), and cerebral infarction without residual deficits; Z79.84 Long term (current) use of oral hypoglycemic drugs; Z88.0 Allergy status to penicillin; Z88.1 Allergy status to other antibiotic agents; Z91.041 Radiographic dye allergy status
CPT/HCPCS: 36415; 51798; 74022; 80053; 81001; 82150; 82272; 82550; 82553; 83605; 83690; 83735; 83880; 84484; 84550; 85025; 85610; 85730; 87040; 87070; 87077; 87081; 87086; 87186; 87205; 87430; 87804; 96365; 96375; 99284; 99285; C9113; J0696; J1940; J3490; J7050

== ENCOUNTER 2018-07-03 10:25 | Day surgery (SDC) | payer MEDICARE, BC ==
--- NOTE | 2018-07-03 11:39 | PCM.HPR ---
H & P Addendum review - H & P Addendum Review Date of Original H & P: 06/19/18 Date Reviewed: 07/03/18 Time Reviewed: 11:39 Patient was Examined: No Changes
[2018-07-03] MEDS ORDERED: Propofol 200 MG/20 ML SDV ONE ×2 (11:45→11:48)
[2018-07-03] MEDS ORDERED: Midazolam 1 MG/ML 2 ML SDV ONE ×2 (11:45→11:48)
[2018-07-03] MEDS ORDERED: Lidocaine 2% 100 MG/5 ML Syringe ONE (11:48)
--- NOTE | 2018-07-03 12:04 | PCM.OPNOTE ---
- General Post-Op/Procedure Note Date of Surgery/Procedure: 07/03/18 Operative Procedure(s): EGD Findings: Normal Pre Op Diagnosis: Dysphasia Post-Op Diagnosis: Same Anesthesia Technique: JASS Primary Surgeon: Uriel Marie Anesthesia Provider: Adele Parsons Complications: None Condition: Good
--- NOTE | 2018-07-03 14:20 | OR ---
Date of Procedure: 07/03/2018 PREOPERATIVE DIAGNOSIS: Dysphagia. POSTOPERATIVE DIAGNOSIS: Normal EGD. PROCEDURE: EGD. ANESTHESIA: IV sedation. PROCEDURE IN DETAIL: The patient is brought to the procedure room where he was placed on the left side and IV sedation administered. Oral bite block was placed and the upper endoscope advanced into the hypopharynx where thick white debris was present that was suctioned out. The vocal cords were viewed and were normal. The scope was advanced into the esophagus and easily passed to the third portion of the duodenum. Duodenum and pylorus are normal. Antrum and body of the stomach were normal. Retroflexion revealed a normal appearing fundus. Lower esophageal sphincter was loose. The lower esophageal sphincter is wide open and there is no stricture or other abnormalities causing dysphagia. Air was removed from the stomach. The scope withdrawn through the remaining esophagus which appears normal. The patient tolerated the procedure well returned to recovery in stable condition. I am suspicious that he has a muscular problem for his dysphagia and thus we will put him on a mechanical soft diet. Follow up with Amy Mayes PA-C in one week to determine whether or not she feels that any further evaluation with a swallowing study would be necessary. DEION BARBOSA MD /[id number]
[2018-07-03 17:02] VITALS: BP 108/43
== END 2018-07-03 13:05 | disposition home or self-care (01) ==
LOC: LL.SDS 10:25
PROVIDERS: ATTEND Surgery
DX: R13.10 Dysphagia, unspecified (principal); E11.9 Type 2 diabetes mellitus without complications; E78.00 Pure hypercholesterolemia, unspecified; J32.9 Chronic sinusitis, unspecified; I50.9 Heart failure, unspecified; J45.909 Unspecified asthma, uncomplicated; I11.0 Hypertensive heart disease with heart failure; K21.9 Gastro-esophageal reflux disease without esophagitis; E03.9 Hypothyroidism, unspecified; I25.10 Atherosclerotic heart disease of native coronary artery without angina pectoris; Z88.0 Allergy status to penicillin; Z88.1 Allergy status to other antibiotic agents; Z79.899 Other long term (current) drug therapy
CPT/HCPCS: 00731; J2001; J2250; J2704; J7120

== ENCOUNTER 2018-08-19 11:59 | Inpatient (IN) | payer MEDICARE, BC ==
--- NOTE | 2018-08-19 13:50 | PCM.HP ---
H&P History of Present Illness - General Date of Service: 08/19/18 Admit Problem/Dx: Admission Diagnosis/Problem Admission Diagnosis/Problem Pneumonia Source of Information: Patient, EMS Notes Reviewed History Limitations: Reports: No Limitations - History of Present Illness Initial Comments - Free Text/Narative: Patient presents to the clinic with not feeling well. Nursing from the [facility] stated that the patient is requiring more assistance with ADL and was hypotensive with a SBP 90's. Patient has known difficulty with swallowing, been through extensive testing and EGD's. The patient states being recently on the skilled side of the [place] home and now back to the Basic side which he prefers. Complains of a cough, decreased appetite, weight loss which has dropped over the the last 6 months. Denies a fever. patient called his daughter today and told her he was not going to make it to his next birthday. Onset of Symptoms: Reports: Sudden Duration of Symptoms: Reports: Getting Worse Location: Reports: Generalized Improves with: Reports: Rest Worsens with: Reports: Eating, Movement Associated Symptoms: Reports: cough w sputum, Loss of Appetite - Related Data Allergies/Adverse Reactions: Allergies Allergy/AdvReac Type Severity Reaction Status Date / Time Iodinated Contrast- Oral and Allergy Nausea and Verified 07/03/18 11:15 IV Dye Vomiting [Iodinated Contrast Media - IV Dye] levofloxacin [From Levaquin] Allergy Cannot Verified 07/03/18 11:15 Remember Penicillins Allergy Hives Verified 07/03/18 11:15 Home Medications: Home Meds Aspirin [Halfprin] 81 mg PO QAM 09/19/14 [History] Brimonidine Tartrate [Brimonidine Tartrate 0.2% Ophth Soln] 1 drop EYEBOTH Q12H 09/19/14 [History] Cholecalciferol (Vitamin D3) [Vitamin D3] 400 unit PO QAM 09/19/14 [History] Latanoprost [Xalatan 0.005% Ophth Soln] 1 drop EYEBOTH BEDTIME 09/19/14 [History ] Simvastatin [Zocor] 20 mg PO BEDTIME 09/19/14 [History] Acetaminophen [Tylenol Arthritis Pain] 1,300 mg PO Q12H 05/26/15 [History] Diclofenac Sodium [Voltaren 1% Gel] 1 applic TOP QID@07,11,15,19 05/26/15 [ History] Clopidogrel Bisulfate [Clopidogrel] 1 tab PO DAILY 08/15/15 [History] Finasteride [Proscar] 1 tab PO DAILY 08/15/15 [History] Tamsulosin HCl [Flomax] 1 cap PO BEDTIME 08/15/15 [History] Methyl Salicylate/Menthol [Thera-Gesic Analgesic] 1 applic TOP ASDIRECTED PRN [History] Furosemide [Lasix] 40 mg PO DAILY 08/01/16 [History] Levothyroxine 75 mcg PO ACBREAKFAST 08/01/16 [History] Sertraline [Zoloft] 100 mg PO DAILY 08/01/16 [History] Magnesium Hydroxide [Milk of Magnesia] 30 ml PO ASDIRECTED PRN 08/02/16 [History ] Omeprazole Magnesium [Prilosec Otc] 20 mg PO DAILY 06/13/17 [History] metFORMIN [Glucophage] 500 mg PO Q12H 06/13/17 [History] Docusate Sodium [Colace] 100 mg PO DAILY PRN 06/09/18 [History] Metoprolol Tartrate 12.5 mg PO BID 07/03/18 [History] Oxybutynin Chloride [Oxybutynin Chloride ER] 1 tab PO DAILY 07/03/18 [History] Past Medical History HEENT History: Reports: Allergic Rhinitis, Cataract, Glaucoma, Sinusitis, Other (See Below) Other HEENT History: dysphagia Cardiovascular History: Reports: Heart Failure, Hypertension Other Cardiovascular History: Atherosclerotic heart disease Respiratory History: Reports: COPD Gastrointestinal History: Reports: Diverticulosis, GERD Other Gastrointestinal History: Ventral hernia. Peptic ulcer Genitourinary History: Reports: BPH Other Genitourinary History: BPH with PSA elevation diagnosed in 2019. Musculoskeletal History: Reports: Osteoarthritis Other Musculoskeletal History: Chronic pain. rotator cuff syndrome of L shoulder with chronic pain. Hammer toes of L foot. generalized weakness Neurological History: Reports: CVA, Headaches, Chronic, TIA Other Neuro History: History of recurrent falls and nonspecific generalized weakness. 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 Psychiatric History: Reports: Anxiety, Depression Endocrine/Metabolic History: Reports: Diabetes, Type II, Hypothyroidism Hematologic History: Reports: None Immunologic History: Reports: None Oncologic (Cancer) History: Reports: None Dermatologic History: Reports: Other (See Below) Other Dermatologic History: Dermatitis. Corns. calluses - Infectious Disease History Infectious Disease History: Reports: MRSA - Past Surgical History HEENT Surgical History: Reports: Cataract Surgery, Other (See Below) Other HEENT Surgeries/Procedures: Intraocular lens Social & Family History - Family History Family Medical History: Unobtainable - Caffeine Use Caffeine Use: Reports: None - Living Situation & Occupation Living situation: Reports: Extended Care Facility ([facility] in [facility]) H&P Review of Systems - Review of Systems: Review Of Systems: See Below General: Reports: Weakness, Decreased Appetite, Weight Loss HEENT: Reports: No Symptoms Pulmonary: Reports: Cough Cardiovascular: Reports: No Symptoms Gastrointestinal: Reports: Decreased Appetite, Difficulty Swallowing Genitourinary: Reports: Urgency, Incontinence Musculoskeletal: Reports: No Symptoms Skin: Reports: No Symptoms Psychiatric: Reports: No Symptoms Neurological: Reports: No Symptoms Hematologic/Lymphatic: Reports: No Symptoms Immunologic: Reports: No Symptoms Exam - Exam Exam: See Below - Exam Quality Assessment: Supplemental Oxygen, DVT Prophylaxis General: Alert, Oriented, Cooperative, Mild Distress HEENT: Conjunctiva Clear, EACs Clear, EOMI, Hearing Intact, Mucosa Moist & Collyer , Nares Patent Neck: Supple, Trachea Midline Lungs: Normal Respiratory Effort, Decreased Breath Sounds, Crackles Cardiovascular: Regular Rate, Regular Rhythm, Normal S1, Normal S2, Systolic Murmur GI/Abdominal Exam: Normal Bowel Sounds, Soft, Non-Tender, No Organomegaly ( visible mass to abdominal area chronic) Back Exam: Normal Inspection, Full Range of Motion Extremities: Normal Inspection, Normal Range of Motion, Non-Tender, Normal Capillary Refill, Pedal Edema (1+ pedal edema bilat) Peripheral Pulses: 1+: Dorsalis Pedis (L), Dorsalis Pedis (R) Skin: Warm, Dry, Intact Neuro Extensive - Mental Status: Alert, Oriented x3, Normal Mood/Affect, Normal Cognition, Memory Intact Psychiatric: Alert, Normal Affect, Normal Mood - Problem List (1) Pneumonia SNOMED Code(s): 319041188 ICD Code: J18.9 - PNEUMONIA, UNSPECIFIED ORGANISM Status: Acute Current Visit: Yes Qualifiers: Pneumonia type: due to unspecified organism (2) CHF, Congestive heart failure SNOMED Code(s): 32770362 ICD Code: I50.9 - HEART FAILURE, UNSPECIFIED Status: Acute Priority: Medium Current Visit: No (3) COPD (chronic obstructive pulmonary disease) SNOMED Code(s): 61009996 ICD Code: J44.9 - CHRONIC OBSTRUCTIVE PULMONARY DISEASE, UNSPECIFIED Status : Acute Priority: High Current Visit: No Onset Date: 06/09/18 Qualifiers: COPD type: COPD with acute lower respiratory infection Qualified Code(s): J44.0 - Chronic obstructive pulmonary disease with acute lower respiratory infection Problem List Initiated/Reviewed/Updated: Yes Orders Last 24hrs: Active Orders 24 hr Category Date Time Status Patient Status [ADT] Routine ADT 08/19/18 13:27 Ordered Antiembolic Devices [RC] PER UNIT ROUTINE Care 08/19/18 13:33 Ordered Intake and Output [RC] QSHIFT Care 08/19/18 13:29 Ordered Oxygen Therapy [RC] PRN Care 08/19/18 13:27 Ordered Peripheral IV Care [RC] . DIRECTED Care 08/19/18 13:33 Ordered RT Aerosol Therapy [RC] ASDIRECTED Care 08/19/18 13:33 Ordered RT Aerosol Therapy [RC] ASDIRECTED Care 08/19/18 13:37 Ordered Up With Assistance [RC] ASDIRECTED Care 08/19/18 13:27 Ordered VTE/DVT Education [RC] PER UNIT ROUTINE Care 08/19/18 13:27 Ordered Vital Signs [RC] Q4H Care 08/19/18 13:27 Ordered Mechanical Soft Diet [DIET] Diet 08/19/18 Dinner Ordered Abdomen 2V AP Flat Upright [CR] Routine Exams 08/19/18 12:00 Taken Chest 2V [CR] Routine Exams 08/19/18 12:36 Taken C-REACTIVE PROTEIN [CHEM] DAILY Lab 08/20/18 05:11 Ordered C-REACTIVE PROTEIN [CHEM] DAILY Lab 08/21/18 05:11 Ordered C-REACTIVE PROTEIN [CHEM] DAILY Lab 08/22/18 05:11 Ordered C-REACTIVE PROTEIN [CHEM] DAILY Lab 08/23/18 05:11 Ordered CBC WITH AUTO DIFF [HEME] DAILY Lab 08/20/18 05:11 Ordered CBC WITH AUTO DIFF [HEME] DAILY Lab 08/21/18 05:11 Ordered CBC WITH AUTO DIFF [HEME] DAILY Lab 08/22/18 05:11 Ordered CBC WITH AUTO DIFF [HEME] DAILY Lab 08/23/18 05:11 Ordered COMPREHENSIVE METABOLIC PN,CMP [CHEM] DAILY Lab 08/20/18 05:11 Ordered COMPREHENSIVE METABOLIC PN,CMP [CHEM] DAILY Lab 08/21/18 05:11 Ordered COMPREHENSIVE METABOLIC PN,CMP [CHEM] DAILY Lab 08/22/18 05:11 Ordered COMPREHENSIVE METABOLIC PN,CMP [CHEM] DAILY Lab 08/23/18 05:11 Ordered CULTURE BLOOD [BC] Stat Lab 08/19/18 13:33 Ordered CULTURE BLOOD [BC] Stat Lab 08/19/18 13:33 Ordered CULTURE SPUTUM + SMEAR [RM] Stat Lab 08/19/18 13:27 Ordered CULTURE URINE [RM] Stat Lab 08/19/18 13:27 Ordered MYCOPLASMA IGM RAPID [MREF] Routine Lab 08/19/18 13:44 Ordered UA W/MICROSCOPIC [URIN] Routine Lab 08/19/18 13:27 Ordered Albuterol/Ipratropium [DuoNeb 3.0-0.5 MG/3 ML] Med 08/19/18 13:27 Ordered 3 ml NEB Q4H PRN Albuterol/Ipratropium [DuoNeb 3.0-0.5 MG/3 ML] Med 08/19/18 16:00 Ordered 3 ml NEB Q4HRRT Azithromycin [Zithromax] Med 08/22/18 12:00 Ordered 500 mg PO DAILY Azithromycin [Zithromax] 500 mg Med 08/19/18 13:45 Ordered Sodium Chloride 0.9% [Normal Saline] 250 ml IV Q24H Enoxaparin [Lovenox] Med 08/20/18 08:00 Ordered 30 mg SUBCUT DAILY Ondansetron [Zofran] Med 08/19/18 13:27 Ordered 4 mg IVPUSH Q6H PRN Sodium Chloride 0.9% [Saline Flush] Med 08/19/18 13:27 Ordered 10 ml FLUSH ASDIRECTED PRN methylPREDNISolone Sod Succ [Solu-MEDROL] Med 08/19/18 16:00 Ordered 40 mg IVPUSH DAILY metroNIDAZOLE/Normal Saline [Flagyl 500 MG in NS 100 ML Med 08/19/18 13:45 Ordered ] 500 mg Premix Bag 1 bag IV Q8H Antiembolic Hose [OM.PC] Per Unit Routine Oth 08/19/18 13:29 Ordered Blood Culture x2 Reflex Set [OM.PC] Stat Oth 08/19/18 13:27 Ordered Peripheral IV Insertion Adult [OM.PC] Routine Oth 08/19/18 13:27 Ordered Saline Lock Insert [OM.PC] Routine Oth 08/19/18 13:27 Ordered Resuscitation Status Routine Resus Stat 08/19/18 13:27 Ordered Medication Orders Albuterol/Ipratropium (Duoneb 3.0-0.5 Mg/3 Ml) 3 ml NEB Q4H PRN PRN Reason: Dyspnea Albuterol/Ipratropium (Duoneb 3.0-0.5 Mg/3 Ml) 3 ml NEB Q4HRRT ANTOINETTE Azithromycin (Zithromax) 500 mg PO DAILY ANTOINETTE Enoxaparin Sodium (Lovenox) 30 mg SUBCUT DAILY ANTOINETTE Azithromycin 500 mg/ Sodium (Chloride) 250 mls @ 250 mls/hr IV Q24H ANTOINETTE Metronidazole 500 mg/ Premix 100 mls @ 100 mls/hr IV Q8H ANTOINETTE Methylprednisolone Sodium Succinate (Solu-Medrol) 40 mg IVPUSH DAILY ANTOINETTE Ondansetron HCl (Zofran) 4 mg IVPUSH Q6H PRN PRN Reason: Nausea/Vomiting Sodium Chloride (Saline Flush) 10 ml FLUSH ASDIRECTED PRN PRN Reason: Keep Vein Open Assessment/Plan Comment:: 08/19/2018 Patient is admitted to inpatient stay for pneumonia, CHF and COPD. Started on IV antibiotics and IV Lasix. ordered sputum, urine cultures and blood cultures. recheck labs in the morning. Discussed with Dr Bacon the plan of care. Patient hopes to return to the Basic side at the [facility]. Consulted PT. Patient is NO CODE status. Patient agrees to hospitalization in [place]. Tammy Cunningham,SHARYN
[2018-08-19] MEDS ORDERED: Magnesium Hydroxide 400 MG/5 ML Susp 30 ML Cup PO PRN (13:55)
[2018-08-19] MEDS ORDERED: Docusate Sodium 100 MG Cap PO PRN (13:55)
[2018-08-19] MEDS ORDERED: Menthol/Methyl Salicylate 85 GM Tube TOP PRN (13:55)
[2018-08-19] MEDS ORDERED: Brimonidine 0.2% Ophth Soln 5 ML Bottle EYEBOTH SCH (14:00)
[2018-08-19] MEDS ORDERED: Albuterol/Ipratropium 3.0-0.5 MG/3 ML Neb Soln NEB PRN (14:00)
[2018-08-19] MEDS ORDERED: Ondansetron 4 MG/2 ML SDV IVPUSH PRN (14:00)
[2018-08-19] MEDS: metroNIDAZOLE/Normal Saline 500 MG in Premix Bag 1 BAG IV SCH ×2 (15:09→22:03)
[2018-08-19] MEDS: Sodium Chloride 0.9% 10 ML Syringe FLUSH PRN ×3 (16:23→22:13)
[2018-08-19] MEDS: Azithromycin 500 MG in Sodium Chloride 0.9% 250 ML IV SCH (16:23)
[2018-08-19] MEDS: methylPREDNISolone Sodium Succinate 40 MG/1 ML SDV IVPUSH SCH (16:23)
[2018-08-19] MEDS: Albuterol/Ipratropium 3.0-0.5 MG/3 ML Neb Soln NEB SCH ×3 (16:23→23:42)
[2018-08-19] MEDS: Metoprolol Tartrate 25 MG Tab PO SCH (17:35)
[2018-08-19] MEDS: Acetaminophen 650 MG Tab.ER PO SCH (22:01)
[2018-08-19] MEDS: Tamsulosin 0.4 MG Cap.ER PO SCH (22:01)
[2018-08-19] MEDS: Simvastatin 20 MG Tab PO SCH (22:02)
[2018-08-19] MEDS: metFORMIN 500 MG Tab PO SCH (22:02)
[2018-08-19] MEDS: Brimonidine 0.2% Ophth Soln 5 ML Bottle EYEBOTH SCH (22:02)
[2018-08-19] MEDS: Latanoprost 0.005% Ophth Soln 2.5 ML Bottle EYEBOTH SCH (22:03)
[2018-08-20] MEDS: Albuterol/Ipratropium 3.0-0.5 MG/3 ML Neb Soln NEB SCH ×5 (05:02→19:19)
[2018-08-20] MEDS: metroNIDAZOLE/Normal Saline 500 MG in Premix Bag 1 BAG IV SCH ×3 (05:02→22:02)
[2018-08-20] MEDS: Sodium Chloride 0.9% 10 ML Syringe FLUSH PRN ×3 (05:03→22:02)
[2018-08-20 07:40] LABS: CHLORIDE,CL 107 mmol/L (98-107); SODIUM,NA 143 mmol/L (136-145)
[2018-08-20] MEDS ORDERED: Clopidogrel 75 MG Tab PO SCH (08:00)
[2018-08-20] MEDS ORDERED: Aspirin 81 MG Tab.EC PO SCH (08:00)
[2018-08-20] MEDS: Furosemide 40 MG/4 ML VIAL IVPUSH SCH (08:42)
[2018-08-20] MEDS: methylPREDNISolone Sodium Succinate 40 MG/1 ML SDV IVPUSH SCH (08:42)
[2018-08-20] MEDS: Levothyroxine 75 MCG Tab PO SCH (08:44)
[2018-08-20] MEDS: Sertraline 50 MG Tab PO SCH (08:45)
[2018-08-20] MEDS: Omeprazole 20 MG Cap.CR PO SCH (08:46)
[2018-08-20] MEDS: Acetaminophen 650 MG Tab.ER PO SCH ×2 (08:46→19:19)
[2018-08-20] MEDS: Finasteride 5 MG Tab PO SCH (08:46)
[2018-08-20] MEDS: metFORMIN 500 MG Tab PO SCH ×2 (08:50→19:19)
[2018-08-20] MEDS: Metoprolol Tartrate 25 MG Tab PO SCH ×2 (08:50→17:44)
[2018-08-20] MEDS: Enoxaparin 30 MG/0.3 ML Syringe SUBCUT SCH (08:52)
[2018-08-20] MEDS: Brimonidine 0.2% Ophth Soln 5 ML Bottle EYEBOTH SCH ×2 (08:54→19:19)
[2018-08-20] MEDS: Oxybutynin 5 MG Tab.ER PO SCH (09:05)
[2018-08-20] MEDS: cefTRIAXone 1 GM Vial IVPUSH SCH (16:13)
[2018-08-20] MEDS: Azithromycin 500 MG in Sodium Chloride 0.9% 250 ML IV SCH (16:14)
--- NOTE | 2018-08-20 18:33 | PCM.PN ---
- General Info Date of Service: 08/20/18 Admission Dx/Problem (Free Text): Admission Diagnosis/Problem Admission Diagnosis/Problem Pneumonia Functional Status: Reports: Pain Controlled, Tolerating Diet - Review of Systems General: Reports: Weakness HEENT: Reports: No Symptoms Pulmonary: Reports: Shortness of Breath Cardiovascular: Reports: No Symptoms Gastrointestinal: Reports: No Symptoms Genitourinary: Reports: No Symptoms Musculoskeletal: Reports: No Symptoms Skin: Reports: No Symptoms Neurological: Reports: Weakness Psychiatric: Reports: Depression - Patient Data Vitals - Most Recent: Last Vital Signs Temp 98.9 F 08/20/18 16:00 Pulse 79 08/20/18 16:00 Resp 19 08/20/18 16:00 BP 124/59 L 08/20/18 16:00 Pulse Ox 93 L 08/20/18 16:49 Weight - Most Recent: 162 lb 11.183 oz I&O - Last 24 Hours: Intake & Output 08/20/18 08/20/18 08/20/18 06:59 14:59 22:59 Intake Total 530 390 Output Total 1300 Balance -770 390 Lab Results Last 24 Hours: Laboratory Results - last 24 hr 08/20/18 08/20/18 08/20/18 Range/Units 06:50 06:50 07:22 WBC 7.9 (4.0-10.2) K/uL RBC 3.41 L (4.33-5.41) M/uL Hgb 9.9 L (13.1-16.8) g/dL Hct 31.6 L (39.0-49.0) % MCV 92.7 (84.0-98.0) fL MCH 29.0 (28.2-33.3) pg MCHC 31.3 L (31.7-36.0) g/dL RDW 15.3 H (11.2-14.1) % Plt Count 234 (150-350) K/uL Neut % (Auto) 80.9 H (45.0-80.0) % Lymph % (Auto) 9.5 L (10.0-50.0) % Anderson % (Auto) 8.6 (2.0-14.0) % Eos % (Auto) 0.6 (0.0-5.0) % Baso % (Auto) 0.4 (0.0-2.0) % Neut # (Auto) 6.36 (1.40-7.00) K/uL Lymph # (Auto) 0.75 (0.50-3.50) K/uL Anderson # (Auto) 0.68 (0.00-1.00) K/uL Eos # (Auto) 0.05 (0.00-0.50) K/uL Baso # (Auto) 0.03 (0.00-0.20) K/uL Sodium 143 (136-145) mmol/L Potassium 3.7 (3.5-5.1) mmol/L Chloride 107 (98-107) mmol/L Carbon Dioxide 25.3 (21.0-32.0) mmol/L BUN 22 H (7-18) mg/dL Creatinine 0.92 (0.51-1.17) mg/dL Est Cr Clr Drug Dosing 51.89 mL/min Estimated GFR (MDRD) > 60 mL/min Glucose 125 H (74-106) mg/dL POC Glucose 124 H (65-110) mg/dl Calcium 9.2 (8.5-10.1) mg/dL Total Bilirubin 0.3 (0.2-1.0) mg/dL AST 14 L (15-37) U/L ALT 14 (12-78) U/L Alkaline Phosphatase 73 (46-116) IU/L C-Reactive Protein 16.7 H (<=0.9) mg/dL Total Protein 6.0 L (6.4-8.2) g/dL Albumin 2.9 L (3.4-5.0) g/dL Specimen Type Urine Color Urine Appearance Urine pH (5.0-9.0) Ur Specific Lotus (1.005-1.030) Urine Protein (NEGATIVE) mg/dL Urine Glucose (UA) (NEGATIVE) mg/dL Urine Ketones (NEGATIVE) mg/dL Urine Occult Blood (NEGATIVE) Urine Nitrite (NEGATIVE) Urine Bilirubin (NEGATIVE) Urine Urobilinogen (0.2-1.0) E.U./dL Ur Leukocyte Esterase (NEGATIVE) Urine RBC /HPF Urine WBC /HPF Ur Epithelial Cells /LPF Urine Bacteria (NONE TO FEW) /HPF Hyaline Casts (NEGATIVE) /LPF 08/20/18 Range/Units 12:21 WBC (4.0-10.2) K/uL RBC (4.33-5.41) M/uL Hgb (13.1-16.8) g/dL Hct (39.0-49.0) % MCV (84.0-98.0) fL MCH (28.2-33.3) pg MCHC (31.7-36.0) g/dL RDW (11.2-14.1) % Plt Count (150-350) K/uL Neut % (Auto) (45.0-80.0) % Lymph % (Auto) (10.0-50.0) % Anderson % (Auto) (2.0-14.0) % Eos % (Auto) (0.0-5.0) % Baso % (Auto) (0.0-2.0) % Neut # (Auto) (1.40-7.00) K/uL Lymph # (Auto) (0.50-3.50) K/uL Anderson # (Auto) (0.00-1.00) K/uL Eos # (Auto) (0.00-0.50) K/uL Baso # (Auto) (0.00-0.20) K/uL Sodium (136-145) mmol/L Potassium (3.5-5.1) mmol/L Chloride (98-107) mmol/L Carbon Dioxide (21.0-32.0) mmol/L BUN (7-18) mg/dL Creatinine (0.51-1.17) mg/dL Est Cr Clr Drug Dosing mL/min Estimated GFR (MDRD) mL/min Glucose (74-106) mg/dL POC Glucose (65-110) mg/dl Calcium (8.5-10.1) mg/dL Total Bilirubin (0.2-1.0) mg/dL AST (15-37) U/L ALT (12-78) U/L Alkaline Phosphatase (46-116) IU/L C-Reactive Protein (<=0.9) mg/dL Total Protein (6.4-8.2) g/dL Albumin (3.4-5.0) g/dL Specimen Type Urinblad Urine Color Yellow Urine Appearance Clear Urine pH 5.0 (5.0-9.0) Ur Specific Lotus 1.010 (1.005-1.030) Urine Protein Negative (NEGATIVE) mg/dL Urine Glucose (UA) Negative (NEGATIVE) mg/dL Urine Ketones Negative (NEGATIVE) mg/dL Urine Occult Blood Negative (NEGATIVE) Urine Nitrite Negative (NEGATIVE) Urine Bilirubin Negative (NEGATIVE) Urine Urobilinogen 0.2 (0.2-1.0) E.U./dL Ur Leukocyte Esterase Negative (NEGATIVE) Urine RBC Not seen /HPF Urine WBC 0-5 /HPF Ur Epithelial Cells Rare /LPF Urine Bacteria Few (NONE TO FEW) /HPF Hyaline Casts Few H (NEGATIVE) /LPF [place] Results Last 24 Hours: Microbiology 08/19/18 14:20 Aerobic Blood Culture - Preliminary Blood - Venous - Lab Draw NO GROWTH AFTER 1 DAY Anaerobic Blood Culture - Preliminary NO GROWTH AFTER 1 DAY 08/19/18 14:10 Aerobic Blood Culture - Preliminary Blood - Venous NO GROWTH AFTER 1 DAY Anaerobic Blood Culture - Preliminary NO GROWTH AFTER 1 DAY 08/19/18 14:10 Mycoplasma Serology - Final Blood Med Orders - Current: Current Medications Acetaminophen (Tylenol Arthritis Pain) 1,300 mg PO Q12HR [facility] Last Admin: 08/20/18 08:46 Dose: 1,300 mg Albuterol/Ipratropium (Duoneb 3.0-0.5 Mg/3 Ml) 3 ml NEB Q4H PRN PRN Reason: Dyspnea Albuterol/Ipratropium (Duoneb 3.0-0.5 Mg/3 Ml) 3 ml NEB QIDRT [facility] Last Admin: 08/20/18 16:15 Dose: 3 ml Azithromycin (Zithromax) 500 mg PO DAILY@1200 [facility] Brimonidine Tartrate (Alphagan 0.2% [facility] Soln) 0 ml EYEBOTH Q12HR [facility] Last Admin: 08/20/18 08:54 Dose: 1 drop Ceftriaxone Sodium (Rocephin) 1 gm IVPUSH Q12H [facility] Last Admin: 08/20/18 16:13 Dose: 1 gm Docusate Sodium (Colace) 100 mg PO DAILY PRN PRN Reason: Constipation Enoxaparin Sodium (Lovenox) 30 mg SUBCUT DAILY [facility] Last Admin: 08/20/18 08:52 Dose: 30 mg Finasteride (Proscar) 5 mg PO DAILY [facility] Last Admin: 08/20/18 08:46 Dose: 5 mg Furosemide (Lasix) 40 mg IVPUSH DAILY [facility] Last Admin: 08/20/18 08:42 Dose: 40 mg Azithromycin 500 mg/ Sodium (Chloride) 250 mls @ 250 mls/hr IV Q24H [facility] Stop: 08/21/18 15:59 Last Admin: 08/20/18 16:14 Dose: 250 mls/hr Metronidazole 500 mg/ Premix 100 mls @ 100 mls/hr IV Q8H [facility] Last Admin: 08/20/18 14:32 Dose: 100 mls/hr Latanoprost (Xalatan 0.005% Ophth Soln) 0 ml EYEBOTH BEDTIME [facility] Last Admin: 08/19/18 22:03 Dose: 1 drop Levothyroxine Sodium (Levothyroxine) 75 mcg PO DAILY [facility] Last Admin: 08/20/18 08:44 Dose: 75 mcg Magnesium Hydroxide (Milk Of Magnesia) 30 ml PO ASDIRECTED PRN PRN Reason: contipation Metformin HCl (Glucophage) 500 mg PO Q12HR [facility] Last Admin: 08/20/18 08:50 Dose: 500 mg Methyl Salicylate (Icy Hot Cream) 1 gm TOP ASDIRECTED PRN PRN Reason: Joint Pain Methylprednisolone Sodium Succinate (Solu-Medrol) 40 mg IVPUSH DAILY [facility] Last Admin: 08/20/18 08:42 Dose: 40 mg Metoprolol Tartrate (Lopressor) 12.5 mg PO BID [facility] Last Admin: 08/20/18 17:44 Dose: Not Given Omeprazole (Omeprazole) 20 mg PO DAILY [facility] Last Admin: 08/20/18 08:46 Dose: 20 mg Ondansetron HCl (Zofran) 4 mg IVPUSH Q6H PRN PRN Reason: Nausea/Vomiting Oxybutynin Chloride (Oxybutynin Er) 15 mg PO DAILY [facility] Last Admin: 08/20/18 09:05 Dose: 15 mg Sertraline HCl (Zoloft) 150 mg PO DAILY [facility] Last Admin: 08/20/18 08:45 Dose: 150 mg Simvastatin (Zocor) 20 mg PO BEDTIME [facility] Last Admin: 08/19/18 22:02 Dose: 20 mg Sodium Chloride (Saline Flush) 10 ml FLUSH ASDIRECTED PRN PRN Reason: Keep Vein Open Last Admin: 08/20/18 08:43 Dose: 10 ml Sodium Chloride (Saline Flush) 10 ml FLUSH Q12HR [facility] Tamsulosin HCl (Flomax) 0.4 mg PO BEDTIME [facility] Last Admin: 08/19/18 22:01 Dose: 0.4 mg Discontinued Medications Albuterol/Ipratropium (Duoneb 3.0-0.5 Mg/3 Ml) 3 ml NEB Q4HRRT [facility] Last Admin: 08/20/18 11:30 Dose: 3 ml Aspirin (Halfprin) 81 mg PO QAM [facility] Brimonidine Tartrate (Alphagan 0.2% Ophth Soln) 0 ml EYEBOTH Q12H [facility] Last Admin: 08/19/18 15:43 Dose: Not Given Clopidogrel Bisulfate (Plavix) 75 mg PO DAILY [facility] - Exam General: Alert, Cooperative, No Acute Distress HEENT: Mucous Membr. Moist/[place] Neck: Trachea Midline, No JVD Lungs: Normal Respiratory Effort, Decreased Breath Sounds Cardiovascular: Regular Rate, Regular Rhythm (Male) Exam: Deferred Back Exam: Normal Inspection Extremities: Normal Inspection, Non-Tender, No Pedal Edema Skin: Warm, Dry, Intact Neurological: No New Focal Deficit Psy/Mental Status: Alert, Depressed - Problem List & Annotations (1) Pneumonia SNOMED Code(s): 612712681 Code(s): J18.9 - PNEUMONIA, UNSPECIFIED ORGANISM Status: Acute Current Visit: Yes Qualifiers: Pneumonia type: due to unspecified organism (2) Anemia SNOMED Code(s): 082697524 Code(s): D64.9 - ANEMIA, UNSPECIFIED Status: Acute Priority: Medium Current Visit: No Onset Date: 06/09/18 Qualifiers: Anemia type: unspecified type Qualified Code(s): D64.9 - Anemia, unspecified Annotation/Comment:: Newly diagnosed possibly secondary to his renal insufficiency. No evidence of lower GI bleed with negative Hemoccult as above. Consider workup including iron studies, etc. (3) CHF, Congestive heart failure SNOMED Code(s): 20237730 Code(s): I50.9 - HEART FAILURE, UNSPECIFIED Status: Acute Priority: Medium Current Visit: No (4) COPD (chronic obstructive pulmonary disease) SNOMED Code(s): 08377884 Code(s): J44.9 - CHRONIC OBSTRUCTIVE PULMONARY DISEASE, UNSPECIFIED Status : Acute Priority: High Current Visit: No Onset Date: 06/09/18 Qualifiers: COPD type: COPD with acute lower respiratory infection Qualified Code(s): J44.0 - Chronic obstructive pulmonary disease with acute lower respiratory infection (5) Renal insufficiency SNOMED Code(s): 293688655, 294740073 Code(s): N28.9 - DISORDER OF KIDNEY AND URETER, UNSPECIFIED Status: Acute Priority: Medium Current Visit: No Onset Date: 06/09/18 Annotation/ Comment:: Newly diagnosed today. Continue to observe renal status closely especially in light of IV Lasix therapy and current BPH with PSA elevation with some urinary retention today as above. (6) BPH (benign prostatic hypertrophy) SNOMED Code(s): 796031458 Code(s): N40.0 - BENIGN PROSTATIC HYPERPLASIA WITHOUT LOWER URINRY TRACT SYMP Status: Chronic Priority: High Current Visit: No Qualifiers: Lower urinary tract symptom presence: symptoms present Lower urinary tract symptom detail: unspecified Qualified Code(s): N40.1 - Benign prostatic hyperplasia with lower urinary tract symptoms Annotation/Comment:: Nodular BPH with recent PSA elevation and probable prostate cancer. Urology consultation scheduled for 06/18/[address] Gibson from [facility] in [place], (7) Diabetes SNOMED Code(s): 62295693 Code(s): E11.9 - TYPE 2 DIABETES MELLITUS WITHOUT COMPLICATIONS Status: Chronic Priority: Medium Current Visit: No Qualifiers: Diabetes mellitus type: type 2 Diabetes mellitus terminologist insulin use: without fpc use Diabetes mellitus complication status: with kidney complications Diabetes mellitus complication detail: with chronic kidney disease Chronic kidney disease stage: stage 3 (moderate) Qualified Code(s): E11.22 - Type 2 diabetes mellitus with diabetic chronic kidney disease; N18.3 - Chronic kidney disease, stage 3 (moderate) Annotation/Comment:: Consider glycosylated hemoglobin by accepting providers. (8) Hypertension SNOMED Code(s): 42782020 Code(s): I10 - ESSENTIAL (PRIMARY) HYPERTENSION Status: Chronic Priority : Medium Current Visit: No Qualifiers: Hypertension type: essential hypertension Qualified Code(s): I10 - Essential (primary) hypertension Annotation/Comment:: Blood Pressures stable in the emergency room. Continue to observe closely by accepting providers.. (9) Mixed anxiety depressive disorder SNOMED Code(s): 779435344 Code(s): F41.8 - OTHER SPECIFIED ANXIETY DISORDERS Status: Chronic Priority: Medium Current Visit: No Annotation/Comment:: Stable by history (10) Osteoarthritis SNOMED Code(s): 435413506 Code(s): M19.90 - UNSPECIFIED OSTEOARTHRITIS, UNSPECIFIED SITE Status: Chronic Priority: Medium Current Visit: No Qualifiers: Osteoarthritis location: multiple joints Osteoarthritis type: primary Qualified Code(s): M15.0 - Primary generalized (osteo)arthritis Annotation/Comment:: Chronic pain syndrome and arthralgias with possible aggravation from current influenza A. (11) Parkinsons disease SNOMED Code(s): 46651993 Code(s): G20 - PARKINSON'S DISEASE Status: Chronic Priority: Medium Current Visit: No Onset Date: ~06/09/18 Annotation/Comment:: History of chronic tremor with Parkinson's disease diagnosed by my clinical exam today. (12) Peptic reflux disease SNOMED Code(s): 888911526 Code(s): K21.9 - GASTRO-ESOPHAGEAL REFLUX DISEASE WITHOUT ESOPHAGITIS Status: Chronic Priority: Medium Current Visit: No Annotation/Comment:: Otherwise stable by history. IV Pepcid and IV Protonix given as above. - Problem List Review Problem List Initiated/Reviewed/Updated: Yes - My Orders Last 24 Hours: My Active Orders 08/20/18 09:37 Consult to Case Management/Mine Inspector [CONS] Routine Consult to Speech Language Pathology [PROPERTY MANAGEMENT COORDINATOR Evaluation and Treatment] [CONS] Routine 08/20/18 14:30 cefTRIAXone [Rocephin] 1 gm IVPUSH Q12H 08/20/18 14:37 OT Evaluation and Treatment [CONS] Routine 08/20/18 16:00 Albuterol/Ipratropium [DuoNeb 3.0-0.5 MG/3 ML] 3 ml NEB QIDRT 08/20/18 20:00 Sodium Chloride 0.9% [Saline Flush] 10 ml FLUSH Q12HR 08/21/18 05:11 BLOOD GAS VENOUS [BG] Routine 08/21/18 09:00 Swallowing Function w Video [CR] Routine - Assessment Assessment:: 08/20/18 Arleen Brumfield MD He feels a little bit better. Continue medical therapy. - Plan Plan:: 08/19/2018 Patient is admitted to inpatient stay for pneumonia, CHF and COPD. Started on IV antibiotics and IV Lasix. ordered sputum, urine cultures and blood cultures. recheck labs in the morning. Discussed with Dr Bacon the plan of care. Patient hopes to return to the Basic side at the [facility]. Consulted PT. Patient is NO CODE status. Patient agrees to hospitalization in [place]. Tammy Cunningham,[employer]
[2018-08-20] MEDS: Simvastatin 20 MG Tab PO SCH (19:19)
[2018-08-20] MEDS: Tamsulosin 0.4 MG Cap.ER PO SCH (19:19)
[2018-08-20] MEDS: Sodium Chloride 0.9% 10 ML Syringe FLUSH SCH (19:20)
[2018-08-20] MEDS: Latanoprost 0.005% Ophth Soln 2.5 ML Bottle EYEBOTH SCH (19:20)
[2018-08-21] MEDS: cefTRIAXone 1 GM Vial IVPUSH SCH ×2 (04:52→14:38)
[2018-08-21] MEDS: metroNIDAZOLE/Normal Saline 500 MG in Premix Bag 1 BAG IV SCH ×3 (05:19→23:01)
[2018-08-21] MEDS: Sodium Chloride 0.9% 10 ML Syringe FLUSH PRN ×7 (05:19→23:02)
[2018-08-21 06:49] LABS: O2 DELIVERY DEVICE ROOM AIR
[2018-08-21 06:54] LABS: BASE EXCESS VENOUS 3 mmol/L ((-2)-3); BICARBONATE,VENOUS 27 mmol/L (23-28); O2 SATURATION VENOUS 93 %; PCO2 VENOUS 39 mmHG (41-51); PH,VENOUS 7.45 (7.31-7.41); PO2 VENOUS 65 mmHG
[2018-08-21 07:42] LABS: CHLORIDE,CL 106 mmol/L (98-107); SODIUM,NA 142 mmol/L (136-145)
[2018-08-21] MEDS: Brimonidine 0.2% Ophth Soln 5 ML Bottle EYEBOTH SCH ×2 (08:20→19:20)
[2018-08-21] MEDS: Albuterol/Ipratropium 3.0-0.5 MG/3 ML Neb Soln NEB SCH ×4 (08:30→19:19)
[2018-08-21] MEDS: Enoxaparin 30 MG/0.3 ML Syringe SUBCUT SCH (08:30)
[2018-08-21] MEDS: Acetaminophen 650 MG Tab.ER PO SCH ×2 (08:31→19:20)
[2018-08-21] MEDS: Sertraline 50 MG Tab PO SCH (08:32)
[2018-08-21] MEDS: Omeprazole 20 MG Cap.CR PO SCH (08:32)
[2018-08-21] MEDS: Levothyroxine 75 MCG Tab PO SCH (08:33)
[2018-08-21] MEDS: Finasteride 5 MG Tab PO SCH (08:33)
[2018-08-21] MEDS: Metoprolol Tartrate 25 MG Tab PO SCH ×2 (08:34→19:21)
[2018-08-21] MEDS: metFORMIN 500 MG Tab PO SCH ×2 (08:34→19:21)
[2018-08-21] MEDS: Furosemide 40 MG/4 ML VIAL IVPUSH SCH (08:35)
[2018-08-21] MEDS: Sodium Chloride 0.9% 10 ML Syringe FLUSH SCH ×2 (08:36→19:21)
[2018-08-21] MEDS: methylPREDNISolone Sodium Succinate 40 MG/1 ML SDV IVPUSH SCH ×3 (08:41→23:01)
[2018-08-21] MEDS: Oxybutynin 5 MG Tab.ER PO SCH (08:46)
[2018-08-21] MEDS: Azithromycin 500 MG in Sodium Chloride 0.9% 250 ML IV SCH (15:17)
[2018-08-21] MEDS: Latanoprost 0.005% Ophth Soln 2.5 ML Bottle EYEBOTH SCH (19:19)
[2018-08-21] MEDS: Tamsulosin 0.4 MG Cap.ER PO SCH (19:20)
[2018-08-21] MEDS: Simvastatin 20 MG Tab PO SCH (19:20)
[2018-08-21] MEDS: Pantoprazole 40 MG Vial IVPUSH SCH (19:21)
--- NOTE | 2018-08-21 22:35 | PCM.PN ---
- General Info Date of Service: 08/21/18 Admission Dx/Problem (Free Text): Admission Diagnosis/Problem Admission Diagnosis/Problem Pneumonia Functional Status: Reports: Other (arthritis pain all over) - Review of Systems General: Reports: Weakness HEENT: Reports: No Symptoms Pulmonary: Reports: Cough Cardiovascular: Reports: No Symptoms Gastrointestinal: Reports: No Symptoms Genitourinary: Reports: No Symptoms Musculoskeletal: Reports: Other (arthritis pains all over) Neurological: Reports: Weakness Psychiatric: Reports: Depression, Anxiety - Patient Data Vitals - Most Recent: Last Vital Signs Temp 97.8 F 08/21/18 16:00 Pulse 76 08/21/18 19:21 Resp 17 08/21/18 16:00 BP 120/77 08/21/18 19:21 Pulse Ox 91 L 08/21/18 16:00 Weight - Most Recent: 162 lb 11.183 oz I&O - Last 24 Hours: Intake & Output 08/21/18 08/21/18 08/21/18 06:59 14:59 22:59 Intake Total 300 670 Output Total 1200 400 Balance 300 -530 -400 Lab Results Last 24 Hours: Laboratory Results - last 24 hr 08/21/18 08/21/18 08/21/18 Range/Units 05:30 06:35 06:35 WBC 9.6 (4.0-10.2) K/uL RBC 3.57 L (4.33-5.41) M/uL Hgb 10.3 L (13.1-16.8) g/dL Hct 33.0 L (39.0-49.0) % MCV 92.4 (84.0-98.0) fL MCH 28.9 (28.2-33.3) pg MCHC 31.2 L (31.7-36.0) g/dL RDW 15.4 H (11.2-14.1) % Plt Count 246 (150-350) K/uL Neut % (Auto) 77.3 (45.0-80.0) % Lymph % (Auto) 11.3 (10.0-50.0) % Rich % (Auto) 8.6 (2.0-14.0) % Eos % (Auto) 2.3 (0.0-5.0) % Baso % (Auto) 0.5 (0.0-2.0) % Neut # (Auto) 7.42 H (1.40-7.00) K/uL Lymph # (Auto) 1.08 (0.50-3.50) K/uL Rich # (Auto) 0.83 (0.00-1.00) K/uL Eos # (Auto) 0.22 (0.00-0.50) K/uL Baso # (Auto) 0.05 (0.00-0.20) K/uL VBG pH (7.31-7.41) VBG pCO2 (41-51) mmHG VBG pO2 mmHG VBG HCO3 (23-28) mmol/L VBG Total CO2 mmol/L VBG O2 Saturation % VBG Base Excess ((-2)-3) mmol/L O2 Delivery Device Sodium 142 (136-145) mmol/L Potassium 4.0 (3.5-5.1) mmol/L Chloride 106 (98-107) mmol/L Carbon Dioxide 25.3 (21.0-32.0) mmol/L BUN 22 H (7-18) mg/dL Creatinine 0.87 (0.51-1.17) mg/dL Est Cr Clr Drug Dosing 54.74 mL/min Estimated GFR (MDRD) > 60 mL/min Glucose 114 H (74-106) mg/dL POC Glucose 114 H (65-110) mg/dl Calcium 9.2 (8.5-10.1) mg/dL Total Bilirubin 0.2 (0.2-1.0) mg/dL AST 13 L (15-37) U/L ALT 14 (12-78) U/L Alkaline Phosphatase 70 (46-116) IU/L C-Reactive Protein 6.6 H (<=0.9) mg/dL Total Protein 5.9 L (6.4-8.2) g/dL Albumin 2.9 L (3.4-5.0) g/dL 08/21/18 08/21/18 Range/Units 06:35 17:13 WBC (4.0-10.2) K/uL RBC (4.33-5.41) M/uL Hgb (13.1-16.8) g/dL Hct (39.0-49.0) % MCV (84.0-98.0) fL MCH (28.2-33.3) pg MCHC (31.7-36.0) g/dL RDW (11.2-14.1) % Plt Count (150-350) K/uL Neut % (Auto) (45.0-80.0) % Lymph % (Auto) (10.0-50.0) % Rich % (Auto) (2.0-14.0) % Eos % (Auto) (0.0-5.0) % Baso % (Auto) (0.0-2.0) % Neut # (Auto) (1.40-7.00) K/uL Lymph # (Auto) (0.50-3.50) K/uL Rich # (Auto) (0.00-1.00) K/uL Eos # (Auto) (0.00-0.50) K/uL Baso # (Auto) (0.00-0.20) K/uL VBG pH 7.45 H (7.31-7.41) VBG pCO2 39 L (41-51) mmHG VBG pO2 65 mmHG VBG HCO3 27 (23-28) mmol/L VBG Total CO2 28 mmol/L VBG O2 Saturation 93 % VBG Base Excess 3 ((-2)-3) mmol/L O2 Delivery Device Room air Sodium (136-145) mmol/L Potassium (3.5-5.1) mmol/L Chloride (98-107) mmol/L Carbon Dioxide (21.0-32.0) mmol/L BUN (7-18) mg/dL Creatinine (0.51-1.17) mg/dL Est Cr Clr Drug Dosing mL/min Estimated GFR (MDRD) mL/min Glucose (74-106) mg/dL POC Glucose 167 H (65-110) mg/dl Calcium (8.5-10.1) mg/dL Total Bilirubin (0.2-1.0) mg/dL AST (15-37) U/L ALT (12-78) U/L Alkaline Phosphatase (46-116) IU/L C-Reactive Protein (<=0.9) mg/dL Total Protein (6.4-8.2) g/dL Albumin (3.4-5.0) g/dL [place] Results Last 24 Hours: Microbiology 08/19/18 14:20 Aerobic Blood Culture - Preliminary Blood - Venous - Lab Draw NO GROWTH AFTER 2 DAYS Anaerobic Blood Culture - Preliminary NO GROWTH AFTER 2 DAYS 08/19/18 14:10 Aerobic Blood Culture - Preliminary Blood - Venous NO GROWTH AFTER 2 DAYS Anaerobic Blood Culture - Preliminary NO GROWTH AFTER 2 DAYS 08/20/18 12:21 Urine Culture - Preliminary Urine, Bladder NO GROWTH AFTER 1 DAY Med Orders - Current: Current Medications Acetaminophen (Tylenol Arthritis Pain) 1,300 mg PO Q12HR [facility] Last Admin: 08/21/18 19:20 Dose: 1,300 mg Albuterol/Ipratropium (Duoneb 3.0-0.5 Mg/3 Ml) 3 ml NEB Q4H PRN PRN Reason: Dyspnea Albuterol/Ipratropium (Duoneb 3.0-0.5 Mg/3 Ml) 3 ml NEB QIDRT [facility] Last Admin: 08/21/18 19:19 Dose: 3 ml Azithromycin (Zithromax) 500 mg PO DAILY@1200 ANTOINETTE Brimonidine Tartrate (Alphagan 0.2% [facility] Sol) 0 ml EYEBOTH Q12HR [facility] Last Admin: 08/21/18 19:20 Dose: 1 drop Ceftriaxone Sodium (Rocephin) 1 gm IVPUSH Q12H [facility] Last Admin: 08/21/18 14:38 Dose: 1 gm Docusate Sodium (Colace) 100 mg PO DAILY PRN PRN Reason: Constipation Enoxaparin Sodium (Lovenox) 30 mg SUBCUT DAILY [facility] Last Admin: 08/21/18 08:30 Dose: 30 mg Finasteride (Proscar) 5 mg PO DAILY [facility] Last Admin: 08/21/18 08:33 Dose: 5 mg Furosemide (Lasix) 40 mg IVPUSH DAILY [facility] Last Admin: 08/21/18 08:35 Dose: 40 mg Metronidazole 500 mg/ Premix 100 mls @ 100 mls/hr IV Q8H [facility] Last Admin: 08/21/18 13:04 Dose: 100 mls/hr Latanoprost (Xalatan 0.005% Oph Soln) 0 ml EYEBOTH BEDTIME [facility] Last Admin: 08/21/18 19:19 Dose: 1 drop Levothyroxine Sodium (Levothyroxine) 75 mcg PO DAILY [facility] Last Admin: 08/21/18 08:33 Dose: 75 mcg Magnesium Hydroxide (Milk Of Magnesia) 30 ml PO ASDIRECTED PRN PRN Reason: contipation Metformin HCl (Glucophage) 500 mg PO Q12HR [facility] Last Admin: 08/21/18 19:21 Dose: 500 mg Methyl Salicylate (Icy Hot Cream) 1 gm TOP ASDIRECTED PRN PRN Reason: Joint Pain Last Admin: 08/21/18 08:26 Dose: 1 applic Methylprednisolone Sodium Succinate (Solu-Medrol) 40 mg IVPUSH Q8H [facility] Last Admin: 08/21/18 16:45 Dose: 40 mg Metoprolol Tartrate (Lopressor) 12.5 mg PO BID [facility] Last Admin: 08/21/18 19:21 Dose: 12.5 mg Ondansetron HCl (Zofran) 4 mg IVPUSH Q6H PRN PRN Reason: Nausea/Vomiting Oxybutynin Chloride (Oxybutynin Er) 15 mg PO DAILY [facility] Last Admin: 08/21/18 08:46 Dose: 15 mg Pantoprazole Sodium (Protonix Iv) 40 mg IVPUSH BEDTIME [facility] Last Admin: 08/21/18 19:21 Dose: 40 mg Sertraline HCl (Zoloft) 150 mg PO DAILY [facility] Last Admin: 08/21/18 08:32 Dose: 150 mg Simvastatin (Zocor) 20 mg PO BEDTIME [facility] Last Admin: 08/21/18 19:20 Dose: 20 mg Sodium Chloride (Saline Flush) 10 ml FLUSH ASDIRECTED PRN PRN Reason: Keep Vein Open Last Admin: 08/21/18 16:46 Dose: 10 ml Sodium Chloride (Saline Flush) 10 ml FLUSH Q12HR [facility] Last Admin: 08/21/18 19:21 Dose: 10 ml Tamsulosin HCl (Flomax) 0.4 mg PO BEDTIME [facility] Last Admin: 08/21/18 19:20 Dose: 0.4 mg Discontinued Medications Albuterol/Ipratropium (Duoneb 3.0-0.5 Mg/3 Ml) 3 ml NEB Q4HRRT [facility] Last Admin: 08/20/18 11:30 Dose: 3 ml Aspirin (Halfprin) 81 mg PO QAM [facility] Brimonidine Tartrate (Alphagan 0.2% Ophth Soln) 0 ml EYEBOTH Q12H [facility] Last Admin: 08/19/18 15:43 Dose: Not Given Clopidogrel Bisulfate (Plavix) 75 mg PO DAILY [facility] Azithromycin 500 mg/ Sodium (Chloride) 250 mls @ 250 mls/hr IV Q24H [facility] Stop: 08/21/18 15:59 Last Admin: 08/21/18 15:17 Dose: 250 mls/hr Methylprednisolone Sodium Succinate (Solu-Medrol) 40 mg IVPUSH DAILY [facility] Last Admin: 08/21/18 08:41 Dose: 40 mg Omeprazole (Omeprazole) 20 mg PO DAILY [facility] Last Admin: 08/21/18 08:32 Dose: 20 mg - Exam Quality Assessment: DVT Prophylaxis General: Alert, Cooperative HEENT: Mucous Membr. Moist/[place] Neck: Trachea Midline, No JVD Lungs: Normal Respiratory Effort, Decreased Breath Sounds, Rhonchi Cardiovascular: Regular Rate, Regular Rhythm GI/Abdominal Exam: Soft, Non-Tender, No Distention (Male) Exam: Deferred Back Exam: Normal Inspection Extremities: Normal Inspection Skin: Warm, Dry, Intact Neurological: No New Focal Deficit, Other (generalized weakness) Psy/Mental Status: Alert, Anxious, Depressed - Problem List & Annotations (1) Pneumonia SNOMED Code(s): 709707357 Code(s): J18.9 - PNEUMONIA, UNSPECIFIED ORGANISM Status: Acute Current Visit: Yes Qualifiers: Pneumonia type: due to unspecified organism (2) Anemia SNOMED Code(s): 663011249 Code(s): D64.9 - ANEMIA, UNSPECIFIED Status: Acute Priority: Medium Current Visit: No Onset Date: 06/09/18 Qualifiers: Anemia type: unspecified type Qualified Code(s): D64.9 - Anemia, unspecified Annotation/Comment:: Newly diagnosed possibly secondary to his renal insufficiency. No evidence of lower GI bleed with negative Hemoccult as above. Consider workup including iron studies, etc. (3) CHF, Congestive heart failure SNOMED Code(s): 41188439 Code(s): I50.9 - HEART FAILURE, UNSPECIFIED Status: Acute Priority: Medium Current Visit: No (4) COPD (chronic obstructive pulmonary disease) SNOMED Code(s): 72128353 Code(s): J44.9 - CHRONIC OBSTRUCTIVE PULMONARY DISEASE, UNSPECIFIED Status : Acute Priority: High Current Visit: No Onset Date: 06/09/18 Qualifiers: COPD type: COPD with acute lower respiratory infection Qualified Code(s): J44.0 - Chronic obstructive pulmonary disease with acute lower respiratory infection (5) Renal insufficiency SNOMED Code(s): 787572447, 239179089 Code(s): N28.9 - DISORDER OF KIDNEY AND URETER, UNSPECIFIED Status: Acute Priority: Medium Current Visit: No Onset Date: 06/09/18 Annotation/ Comment:: Newly diagnosed today. Continue to observe renal status closely especially in light of IV Lasix therapy and current BPH with PSA elevation with some urinary retention today as above. (6) BPH (benign prostatic hypertrophy) SNOMED Code(s): 706818931 Code(s): N40.0 - BENIGN PROSTATIC HYPERPLASIA WITHOUT LOWER URINRY TRACT SYMP Status: Chronic Priority: High Current Visit: No Qualifiers: Lower urinary tract symptom presence: symptoms present Lower urinary tract symptom detail: unspecified Qualified Code(s): N40.1 - Benign prostatic hyperplasia with lower urinary tract symptoms Annotation/Comment:: Nodular BPH with recent PSA elevation and probable prostate cancer. Urology consultation scheduled for 06/18/[address] Gibson from [facility] in [place], (7) Diabetes SNOMED Code(s): 98593644 Code(s): E11.9 - TYPE 2 DIABETES MELLITUS WITHOUT COMPLICATIONS Status: Chronic Priority: Medium Current Visit: No Qualifiers: Diabetes mellitus type: type 2 Diabetes mellitus correction insulin use: without correction use Diabetes mellitus complication status: with kidney complications Diabetes mellitus complication detail: with chronic kidney disease Chronic kidney disease stage: stage 3 (moderate) Qualified Code(s): E11.22 - Type 2 diabetes mellitus with diabetic chronic kidney disease; N18.3 - Chronic kidney disease, stage 3 (moderate) Annotation/Comment:: Consider glycosylated hemoglobin by accepting providers. (8) Hypertension SNOMED Code(s): 33714512 Code(s): I10 - ESSENTIAL (PRIMARY) HYPERTENSION Status: Chronic Priority : Medium Current Visit: No Qualifiers: Hypertension type: essential hypertension Qualified Code(s): I10 - Essential (primary) hypertension Annotation/Comment:: Blood Pressures stable in the emergency room. Continue to observe closely by accepting providers.. (9) Mixed anxiety depressive disorder SNOMED Code(s): 472338161 Code(s): F41.8 - OTHER SPECIFIED ANXIETY DISORDERS Status: Chronic Priority: Medium Current Visit: No Annotation/Comment:: Stable by history (10) Osteoarthritis SNOMED Code(s): 687190915 Code(s): M19.90 - UNSPECIFIED OSTEOARTHRITIS, UNSPECIFIED SITE Status: Chronic Priority: Medium Current Visit: No Qualifiers: Osteoarthritis location: multiple joints Osteoarthritis type: primary Qualified Code(s): M15.0 - Primary generalized (osteo)arthritis Annotation/Comment:: Chronic pain syndrome and arthralgias with possible aggravation from current influenza A. (11) Parkinsons disease SNOMED Code(s): 89524398 Code(s): G20 - PARKINSON'S DISEASE Status: Chronic Priority: Medium Current Visit: No Onset Date: ~06/09/18 Annotation/Comment:: History of chronic tremor with Parkinson's disease diagnosed by my clinical exam today. (12) Peptic reflux disease SNOMED Code(s): 448754804 Code(s): K21.9 - GASTRO-ESOPHAGEAL REFLUX DISEASE WITHOUT ESOPHAGITIS Status: Chronic Priority: Medium Current Visit: No Annotation/Comment:: Otherwise stable by history. IV Pepcid and IV Protonix given as above. - Problem List Review Problem List Initiated/Reviewed/Updated: Yes - My Orders Last 24 Hours: My Active Orders 08/21/18 09:00 Swallowing Function w Video [CR] Routine 08/21/18 16:00 methylPREDNISolone Sod Succ [Solu-MEDROL] 40 mg IVPUSH Q8H 08/21/18 20:00 Pantoprazole [ProTONIX IV] 40 mg IVPUSH BEDTIME 08/21/18 Dinner Regular Diet [DIET] - Assessment Assessment:: 08/20/18 Arleen Brumfield MD He feels a little bit better. Continue medical therapy. - Plan Plan:: 08/19/2018 Patient is admitted to inpatient stay for pneumonia, CHF and COPD. Started on IV antibiotics and IV Lasix. ordered sputum, urine cultures and blood cultures. recheck labs in the morning. Discussed with Dr Bacon the plan of care. Patient hopes to return to the [facility] side at the [facility]. Consulted PT. Patient is NO CODE status. Patient agrees to hospitalization in [place]. Tammy Cunningham,BULLDOGGER 08/21/18 Arleen Brumfield MD Slow clinical improvement. Discussed discharge plans to [facility]. He states he prefers [facility]. Discussed continued inpatient status. He is weaker and requiring PT-OT.
[2018-08-22] MEDS: cefTRIAXone 1 GM Vial IVPUSH SCH ×2 (02:03→13:57)
[2018-08-22] MEDS: Sodium Chloride 0.9% 10 ML Syringe FLUSH PRN ×6 (02:03→23:18)
[2018-08-22] MEDS: metroNIDAZOLE/Normal Saline 500 MG in Premix Bag 1 BAG IV SCH ×3 (05:22→22:10)
[2018-08-22 07:52] LABS: CHLORIDE,CL 106 mmol/L (98-107); SODIUM,NA 142 mmol/L (136-145)
[2018-08-22] MEDS: Brimonidine 0.2% Ophth Soln 5 ML Bottle EYEBOTH SCH ×2 (08:06→21:28)
[2018-08-22] MEDS: Albuterol/Ipratropium 3.0-0.5 MG/3 ML Neb Soln NEB SCH ×4 (08:06→21:30)
[2018-08-22] MEDS: metFORMIN 500 MG Tab PO SCH ×2 (08:06→21:30)
[2018-08-22] MEDS: Furosemide 40 MG/4 ML VIAL IVPUSH SCH (08:07)
[2018-08-22] MEDS: Metoprolol Tartrate 25 MG Tab PO SCH ×2 (08:07→18:06)
[2018-08-22] MEDS: Levothyroxine 75 MCG Tab PO SCH (08:07)
[2018-08-22] MEDS: Enoxaparin 30 MG/0.3 ML Syringe SUBCUT SCH (08:08)
[2018-08-22] MEDS: Oxybutynin 5 MG Tab.ER PO SCH (08:09)
[2018-08-22] MEDS: Finasteride 5 MG Tab PO SCH (08:09)
[2018-08-22] MEDS: Acetaminophen 650 MG Tab.ER PO SCH ×2 (08:10→21:31)
[2018-08-22] MEDS: methylPREDNISolone Sodium Succinate 40 MG/1 ML SDV IVPUSH SCH ×2 (08:10→15:53)
[2018-08-22] MEDS: Sodium Chloride 0.9% 10 ML Syringe FLUSH SCH ×2 (08:11→21:33)
[2018-08-22] MEDS: Sertraline 50 MG Tab PO SCH (08:11)
[2018-08-22] MEDS: Azithromycin 250 MG Tab PO SCH (11:28)
--- NOTE | 2018-08-22 18:10 | PCM.PN ---
- General Info Date of Service: 08/22/18 Admission Dx/Problem (Free Text): Admission Diagnosis/Problem Admission Diagnosis/Problem Pneumonia Functional Status: Reports: Pain Controlled (still arthritis pains but a little better) - Review of Systems General: Reports: Weakness HEENT: Reports: No Symptoms Pulmonary: Reports: Shortness of Breath, Cough Cardiovascular: Reports: No Symptoms Gastrointestinal: Reports: No Symptoms Genitourinary: Reports: No Symptoms Musculoskeletal: Reports: Other (arthritis pain all over) Skin: Reports: No Symptoms Neurological: Reports: Weakness Psychiatric: Reports: Depression, Anxiety - Patient Data Vitals - Most Recent: Last Vital Signs Temp 98.1 F 08/22/18 11:46 Pulse 78 08/22/18 11:46 Resp 17 08/22/18 11:46 BP 110/46 L 08/22/18 11:46 Pulse Ox 91 L 08/22/18 11:46 Weight - Most Recent: 162 lb 11.183 oz I&O - Last 24 Hours: Intake & Output 08/22/18 08/22/18 08/22/18 06:59 14:59 22:59 Intake Total 450 330 Output Total 400 250 Balance 50 80 Lab Results Last 24 Hours: Laboratory Results - last 24 hr 08/22/18 08/22/18 08/22/18 Range/Units 05:26 07:16 07:16 WBC 9.1 (4.0-10.2) K/uL RBC 3.58 L (4.33-5.41) M/uL Hgb 10.3 L (13.1-16.8) g/dL Hct 33.2 L (39.0-49.0) % MCV 92.7 (84.0-98.0) fL MCH 28.8 (28.2-33.3) pg MCHC 31.0 L (31.7-36.0) g/dL RDW 15.2 H (11.2-14.1) % Plt Count 300 (150-350) K/uL Neut % (Auto) 84.7 H (45.0-80.0) % Lymph % (Auto) 8.3 L (10.0-50.0) % [place] % (Auto) 6.9 (2.0-14.0) % Eos % (Auto) 0.0 (0.0-5.0) % Baso % (Auto) 0.1 (0.0-2.0) % Neut # (Auto) 7.68 H (1.40-7.00) K/uL Lymph # (Auto) 0.75 (0.50-3.50) K/uL [place] # (Auto) 0.63 (0.00-1.00) K/uL Eos # (Auto) 0.00 (0.00-0.50) K/uL Baso # (Auto) 0.01 (0.00-0.20) K/uL Sodium 142 (136-145) mmol/L Potassium 4.1 (3.5-5.1) mmol/L Chloride 106 (98-107) mmol/L Carbon Dioxide 26.2 (21.0-32.0) mmol/L BUN 23 H (7-18) mg/dL Creatinine 0.85 (0.51-1.17) mg/dL Est Cr Clr Drug Dosing 56.02 mL/min Estimated GFR (MDRD) > 60 mL/min Glucose 151 H (74-106) mg/dL POC Glucose 154 H (65-110) mg/dl Calcium 9.1 (8.5-10.1) mg/dL Total Bilirubin 0.2 (0.2-1.0) mg/dL AST 13 L (15-37) U/L ALT 16 (12-78) U/L Alkaline Phosphatase 74 (46-116) IU/L C-Reactive Protein 3.0 H (<=0.9) mg/dL Total Protein 6.1 L (6.4-8.2) g/dL Albumin 3.0 L (3.4-5.0) g/dL 08/22/18 Range/Units 17:02 WBC (4.0-10.2) K/uL RBC (4.33-5.41) M/uL Hgb (13.1-16.8) g/dL Hct (39.0-49.0) % MCV (84.0-98.0) fL MCH (28.2-33.3) pg MCHC (31.7-36.0) g/dL RDW (11.2-14.1) % Plt Count (150-350) K/uL Neut % (Auto) (45.0-80.0) % Lymph % (Auto) (10.0-50.0) % [place] % (Auto) (2.0-14.0) % Eos % (Auto) (0.0-5.0) % Baso % (Auto) (0.0-2.0) % Neut # (Auto) (1.40-7.00) K/uL Lymph # (Auto) (0.50-3.50) K/uL [place] # (Auto) (0.00-1.00) K/uL Eos # (Auto) (0.00-0.50) K/uL Baso # (Auto) (0.00-0.20) K/uL Sodium (136-145) mmol/L Potassium (3.5-5.1) mmol/L Chloride (98-107) mmol/L Carbon Dioxide (21.0-32.0) mmol/L BUN (7-18) mg/dL Creatinine (0.51-1.17) mg/dL Est Cr Clr Drug Dosing mL/min Estimated GFR (MDRD) mL/min Glucose (74-106) mg/dL POC Glucose 164 H (65-110) mg/dl Calcium (8.5-10.1) mg/dL Total Bilirubin (0.2-1.0) mg/dL AST (15-37) U/L ALT (12-78) U/L Alkaline Phosphatase (46-116) IU/L C-Reactive Protein (<=0.9) mg/dL Total Protein (6.4-8.2) g/dL Albumin (3.4-5.0) g/dL [place] Results Last 24 Hours: Microbiology 08/19/18 14:20 Aerobic Blood Culture - Preliminary Blood - Venous - Lab Draw NO GROWTH AFTER 3 DAYS Anaerobic Blood Culture - Preliminary NO GROWTH AFTER 3 DAYS 08/19/18 14:10 Aerobic Blood Culture - Preliminary Blood - Venous NO GROWTH AFTER 3 DAYS Anaerobic Blood Culture - Preliminary NO GROWTH AFTER 3 DAYS 08/20/18 12:21 Urine Culture - Final Urine, Bladder NO GROWTH AFTER 2 DAYS Med Orders - Current: Current Medications Acetaminophen (Tylenol Arthritis Pain) 1,300 mg PO Q12HR [facility] Last Admin: 08/22/18 08:10 Dose: 1,300 mg Albuterol/Ipratropium (Duoneb 3.0-0.5 Mg/3 Ml) 3 ml NEB Q4H PRN PRN Reason: Dyspnea Albuterol/Ipratropium (Duoneb 3.0-0.5 Mg/3 Ml) 3 ml NEB QIDRT [facility] Last Admin: 08/22/18 15:53 Dose: 3 ml Azithromycin (Zithromax) 500 mg PO DAILY@1200 [facility] Last Admin: 08/22/18 11:28 Dose: 500 mg Brimonidine Tartrate (Alphagan 0.2% Oph Soln) 0 ml EYEBOTH Q12HR [facility] Last Admin: 08/22/18 08:06 Dose: 1 drop Ceftriaxone Sodium (Rocephin) 1 gm IVPUSH Q12H [facility] Last Admin: 08/22/18 13:57 Dose: 1 gm Docusate Sodium (Colace) 100 mg PO DAILY PRN PRN Reason: Constipation Enoxaparin Sodium (Lovenox) 30 mg SUBCUT DAILY [facility] Last Admin: 08/22/18 08:08 Dose: 30 mg Finasteride (Proscar) 5 mg PO DAILY [facility] Last Admin: 08/22/18 08:09 Dose: 5 mg Furosemide (Lasix) 40 mg IVPUSH DAILY [facility] Last Admin: 08/22/18 08:07 Dose: 40 mg Metronidazole 500 mg/ Premix 100 mls @ 100 mls/hr IV Q8H [facility] Last Admin: 08/22/18 13:59 Dose: 100 mls/hr Latanoprost (Xalatan 0.005% Oph Soln) 0 ml EYEBOTH BEDTIME [facility] Last Admin: 08/21/18 19:19 Dose: 1 drop Levothyroxine Sodium (Levothyroxine) 75 mcg PO DAILY [facility] Last Admin: 08/22/18 08:07 Dose: 75 mcg Magnesium Hydroxide (Milk Of Magnesia) 30 ml PO ASDIRECTED PRN PRN Reason: contipation Metformin HCl (Glucophage) 500 mg PO Q12HR [facility] Last Admin: 08/22/18 08:06 Dose: 500 mg Methyl Salicylate (Icy Hot Cream) 1 gm TOP ASDIRECTED PRN PRN Reason: Joint Pain Last Admin: 08/21/18 08:26 Dose: 1 applic Methylprednisolone Sodium Succinate (Solu-Medrol) 40 mg IVPUSH Q8H [facility] Last Admin: 08/22/18 15:53 Dose: 40 mg Metoprolol Tartrate (Lopressor) 12.5 mg PO BID [facility] Last Admin: 08/22/18 08:07 Dose: 12.5 mg Ondansetron HCl (Zofran) 4 mg IVPUSH Q6H PRN PRN Reason: Nausea/Vomiting Oxybutynin Chloride (Oxybutynin Er) 15 mg PO DAILY [facility] Last Admin: 08/22/18 08:09 Dose: 15 mg Pantoprazole Sodium (Protonix Iv) 40 mg IVPUSH BEDTIME [facility] Last Admin: 08/21/18 19:21 Dose: 40 mg Sertraline HCl (Zoloft) 150 mg PO DAILY [facility] Last Admin: 08/22/18 08:11 Dose: 150 mg Simvastatin (Zocor) 20 mg PO BEDTIME [facility] Last Admin: 08/21/18 19:20 Dose: 20 mg Sodium Chloride (Saline Flush) 10 ml FLUSH ASDIRECTED PRN PRN Reason: Keep Vein Open Last Admin: 08/22/18 15:54 Dose: 10 ml Sodium Chloride (Saline Flush) 10 ml FLUSH Q12HR [facility] Last Admin: 08/22/18 08:11 Dose: 10 ml Tamsulosin HCl (Flomax) 0.4 mg PO BEDTIME [facility] Last Admin: 08/21/18 19:20 Dose: 0.4 mg Discontinued Medications Albuterol/Ipratropium (Duoneb 3.0-0.5 Mg/3 Ml) 3 ml NEB Q4HRRT [facility] Last Admin: 08/20/18 11:30 Dose: 3 ml Aspirin (Halfprin) 81 mg PO QAM [facility] Brimonidine Tartrate (Alphagan 0.2% [facility]) 0 ml EYEBOTH Q12H [facility] Last Admin: 08/19/18 15:43 Dose: Not Given Clopidogrel Bisulfate (Plavix) 75 mg PO DAILY [facility] Azithromycin 500 mg/ Sodium (Chloride) 250 mls @ 250 mls/hr IV Q24H [facility] Stop: 08/21/18 15:59 Last Admin: 08/21/18 15:17 Dose: 250 mls/hr Methylprednisolone Sodium Succinate (Solu-Medrol) 40 mg IVPUSH DAILY [facility] Last Admin: 08/21/18 08:41 Dose: 40 mg Omeprazole (Omeprazole) 20 mg PO DAILY [facility] Last Admin: 08/21/18 08:32 Dose: 20 mg - Exam General: Alert, Cooperative HEENT: Pupils Equal, Pupils Reactive, Mucous Membr. Moist/[place] Neck: Trachea Midline, No JVD Lungs: Normal Respiratory Effort, Decreased Breath Sounds, Rhonchi (LLL) Cardiovascular: Regular Rate, Regular Rhythm GI/Abdominal Exam: Soft, Non-Tender, No Distention (Male) Exam: Deferred Back Exam: Normal Inspection Extremities: Normal Inspection, Non-Tender Skin: Warm, Dry, Intact Neurological: No New Focal Deficit Psy/Mental Status: Alert, Anxious, Depressed - Problem List & Annotations (1) Pneumonia SNOMED Code(s): 881823595 Code(s): J18.9 - PNEUMONIA, UNSPECIFIED ORGANISM Status: Acute Current Visit: Yes Qualifiers: Pneumonia type: due to unspecified organism Laterality: left Lung location: lower lobe of lung Qualified Code(s): J18.1 - Lobar pneumonia, unspecified organism (2) Anemia SNOMED Code(s): 055762366 Code(s): D64.9 - ANEMIA, UNSPECIFIED Status: Acute Priority: Medium Current Visit: No Onset Date: 06/09/18 Qualifiers: Anemia type: unspecified type Qualified Code(s): D64.9 - Anemia, unspecified (3) CHF, Congestive heart failure SNOMED Code(s): 32178456 Code(s): I50.9 - HEART FAILURE, UNSPECIFIED Status: Acute Priority: Medium Current Visit: No (4) COPD (chronic obstructive pulmonary disease) SNOMED Code(s): 47605773 Code(s): J44.9 - CHRONIC OBSTRUCTIVE PULMONARY DISEASE, UNSPECIFIED Status : Acute Priority: High Current Visit: No Onset Date: 06/09/18 Qualifiers: COPD type: COPD with acute lower respiratory infection Qualified Code(s): J44.0 - Chronic obstructive pulmonary disease with acute lower respiratory infection (5) Renal insufficiency SNOMED Code(s): 533796501, 773452064 Code(s): N28.9 - DISORDER OF KIDNEY AND URETER, UNSPECIFIED Status: Acute Priority: Medium Current Visit: No Onset Date: 06/09/18 (6) BPH (benign prostatic hypertrophy) SNOMED Code(s): 090618040 Code(s): N40.0 - BENIGN PROSTATIC HYPERPLASIA WITHOUT LOWER URINRY TRACT SYMP Status: Chronic Priority: High Current Visit: No Qualifiers: Lower urinary tract symptom presence: symptoms present Lower urinary tract symptom detail: unspecified Qualified Code(s): N40.1 - Benign prostatic hyperplasia with lower urinary tract symptoms (7) Diabetes SNOMED Code(s): 74885267 Code(s): E11.9 - TYPE 2 DIABETES MELLITUS WITHOUT COMPLICATIONS Status: Chronic Priority: Medium Current Visit: No Qualifiers: Diabetes mellitus type: type 2 Diabetes mellitus longterm insulin use: without longterm use Diabetes mellitus complication status: with kidney complications Diabetes mellitus complication detail: with chronic kidney disease Chronic kidney disease stage: stage 3 (moderate) Qualified Code(s): E11.22 - Type 2 diabetes mellitus with diabetic chronic kidney disease; N18.3 - Chronic kidney disease, stage 3 (moderate) (8) Hypertension SNOMED Code(s): 49265310 Code(s): I10 - ESSENTIAL (PRIMARY) HYPERTENSION Status: Chronic Priority : Medium Current Visit: No Qualifiers: Hypertension type: essential hypertension Qualified Code(s): I10 - Essential (primary) hypertension (9) Mixed anxiety depressive disorder SNOMED Code(s): 834062696 Code(s): F41.8 - OTHER SPECIFIED ANXIETY DISORDERS Status: Chronic Priority: Medium Current Visit: No (10) Osteoarthritis SNOMED Code(s): 260025107 Code(s): M19.90 - UNSPECIFIED OSTEOARTHRITIS, UNSPECIFIED SITE Status: Chronic Priority: Medium Current Visit: No Qualifiers: Osteoarthritis location: multiple joints Osteoarthritis type: primary Qualified Code(s): M15.0 - Primary generalized (osteo)arthritis (11) Parkinsons disease SNOMED Code(s): 08250283 Code(s): G20 - PARKINSON'S DISEASE Status: Chronic Priority: Medium Current Visit: No Onset Date: ~06/09/18 (12) Peptic reflux disease SNOMED Code(s): 797576230 Code(s): K21.9 - GASTRO-ESOPHAGEAL REFLUX DISEASE WITHOUT ESOPHAGITIS Status: Chronic Priority: Medium Current Visit: No - Problem List Review Problem List Initiated/Reviewed/Updated: Yes - My Orders Last 24 Hours: My Active Orders 08/21/18 20:00 Pantoprazole [ProTONIX IV] 40 mg IVPUSH BEDTIME 08/21/18 Dinner Regular Diet [DIET] - Assessment Assessment:: 08/20/18 Arleen Brumfield MD He feels a little bit better. Continue medical therapy. - Plan Plan:: 08/19/2018 Patient is admitted to inpatient stay for pneumonia, CHF and COPD. Started on IV antibiotics and IV Lasix. ordered sputum, urine cultures and blood cultures. recheck labs in the morning. Discussed with Dr Bacon the plan of care. Patient hopes to return to the [facility] at the [facility]. Consulted PT. Patient is NO CODE status. Patient agrees to hospitalization in [place]. Tammy Cunningham,SHARYN 08/20/18 Arleen Brumfield MD He feels a little bit better. Continue medical therapy. 08/21/18 Arleen Brumfield MD Slow clinical improvement. Discussed discharge plans to [facility]. He states he prefers [facility]. Discussed continued inpatient status. He is weaker and requiring PT-OT. 08/22/18 Arleen Brumfield MD Still with cough and shortness of breath. Arthritis pains maybe a little bit better on increased dose of IV solumedrol. Continue inpatient staus.
[2018-08-22] MEDS: Tamsulosin 0.4 MG Cap.ER PO SCH (21:30)
[2018-08-22] MEDS: Simvastatin 20 MG Tab PO SCH (21:32)
[2018-08-22] MEDS: Pantoprazole 40 MG Vial IVPUSH SCH (21:33)
[2018-08-22] MEDS: Latanoprost 0.005% Ophth Soln 2.5 ML Bottle EYEBOTH SCH (21:36)
[2018-08-23] MEDS: methylPREDNISolone Sodium Succinate 40 MG/1 ML SDV IVPUSH SCH ×2 (00:43→08:23)
[2018-08-23] MEDS: Sodium Chloride 0.9% 10 ML Syringe FLUSH PRN ×7 (00:44→14:21)
[2018-08-23] MEDS: cefTRIAXone 1 GM Vial IVPUSH SCH ×2 (02:42→14:20)
[2018-08-23] MEDS: metroNIDAZOLE/Normal Saline 500 MG in Premix Bag 1 BAG IV SCH ×2 (05:45→13:44)
[2018-08-23] MEDS: Brimonidine 0.2% Ophth Soln 5 ML Bottle EYEBOTH SCH (08:19)
[2018-08-23 08:20] LABS: CHLORIDE,CL 105 mmol/L (98-107); SODIUM,NA 142 mmol/L (136-145)
[2018-08-23] MEDS: Enoxaparin 30 MG/0.3 ML Syringe SUBCUT SCH (08:21)
[2018-08-23] MEDS: Furosemide 40 MG/4 ML VIAL IVPUSH SCH (08:23)
[2018-08-23] MEDS: Sodium Chloride 0.9% 10 ML Syringe FLUSH SCH (08:24)
[2018-08-23] MEDS: Albuterol/Ipratropium 3.0-0.5 MG/3 ML Neb Soln NEB SCH ×2 (08:26→12:26)
[2018-08-23] MEDS: Oxybutynin 5 MG Tab.ER PO SCH (08:32)
[2018-08-23] MEDS: Finasteride 5 MG Tab PO SCH (08:33)
[2018-08-23] MEDS: Acetaminophen 650 MG Tab.ER PO SCH (08:34)
[2018-08-23] MEDS: Levothyroxine 75 MCG Tab PO SCH (08:36)
[2018-08-23] MEDS: Sertraline 50 MG Tab PO SCH (08:38)
[2018-08-23] MEDS: metFORMIN 500 MG Tab PO SCH (08:39)
[2018-08-23] MEDS: Metoprolol Tartrate 25 MG Tab PO SCH (08:39)
[2018-08-23 11:43] VITALS: BP 127/54
[2018-08-23] MEDS: Azithromycin 250 MG Tab PO SCH (12:26)
--- NOTE | 2018-08-23 23:27 | PCM.PN ---
- General Info Date of Service: 08/23/18 Admission Dx/Problem (Free Text): Admission Diagnosis/Problem Admission Diagnosis/Problem Pneumonia Functional Status: Reports: Pain Controlled (with medication changes yesterday) - Review of Systems General: Reports: Weakness HEENT: Reports: No Symptoms, Glasses Pulmonary: Reports: Cough, Sputum Cardiovascular: Reports: No Symptoms Gastrointestinal: Reports: No Symptoms Genitourinary: Reports: No Symptoms Musculoskeletal: Reports: Other (pain all over which is better today on increased solumedrol) Skin: Reports: No Symptoms Neurological: Reports: Weakness Psychiatric: Reports: Depression - Patient Data Vitals - Most Recent: Last Vital Signs Temp 98.1 F 08/23/18 11:42 Pulse 69 08/23/18 11:42 Resp 16 08/23/18 11:42 BP 127/54 L 08/23/18 11:42 Pulse Ox 93 L 08/23/18 11:42 Weight - Most Recent: 162 lb 11.183 oz I&O - Last 24 Hours: Intake & Output 08/23/18 08/23/18 08/24/18 14:59 22:59 06:59 Intake Total 840 Output Total 1400 Balance -560 Lab Results Last 24 Hours: Laboratory Results - last 24 hr 08/23/18 08/23/18 08/23/18 Range/Units 07:21 07:25 07:25 WBC 9.4 (4.0-10.2) K/uL RBC 3.65 L (4.33-5.41) M/uL Hgb 10.5 L (13.1-16.8) g/dL Hct 34.0 L (39.0-49.0) % MCV 93.2 (84.0-98.0) fL MCH 28.8 (28.2-33.3) pg MCHC 30.9 L (31.7-36.0) g/dL RDW 15.3 H (11.2-14.1) % Plt Count 292 (150-350) K/uL Neut % (Auto) 85.5 H (45.0-80.0) % Lymph % (Auto) 8.0 L (10.0-50.0) % [place] % (Auto) 6.4 (2.0-14.0) % Eos % (Auto) 0.0 (0.0-5.0) % Baso % (Auto) 0.1 (0.0-2.0) % Neut # (Auto) 8.00 H (1.40-7.00) K/uL Lymph # (Auto) 0.75 (0.50-3.50) K/uL [place] # (Auto) 0.60 (0.00-1.00) K/uL Eos # (Auto) 0.00 (0.00-0.50) K/uL Baso # (Auto) 0.01 (0.00-0.20) K/uL Sodium 142 (136-145) mmol/L Potassium 4.3 (3.5-5.1) mmol/L Chloride 105 (98-107) mmol/L Carbon Dioxide 25.7 (21.0-32.0) mmol/L BUN 28 H (7-18) mg/dL Creatinine 0.86 (0.51-1.17) mg/dL Est Cr Clr Drug Dosing 55.37 mL/min Estimated GFR (MDRD) > 60 mL/min Glucose 154 H (74-106) mg/dL POC Glucose 155 H (65-110) mg/dl Calcium 9.3 (8.5-10.1) mg/dL Total Bilirubin 0.2 (0.2-1.0) mg/dL AST 10 L (15-37) U/L ALT 15 (12-78) U/L Alkaline Phosphatase 73 (46-116) IU/L C-Reactive Protein 1.4 H (<=0.9) mg/dL Total Protein 5.9 L (6.4-8.2) g/dL Albumin 3.0 L (3.4-5.0) g/dL [place] Results Last 24 Hours: Microbiology 08/19/18 14:20 Aerobic Blood Culture - Preliminary Blood - Venous - Lab Draw NO GROWTH AFTER 4 DAYS Anaerobic Blood Culture - Preliminary NO GROWTH AFTER 4 DAYS 08/19/18 14:10 Aerobic Blood Culture - Preliminary Blood - Venous NO GROWTH AFTER 4 DAYS Anaerobic Blood Culture - Preliminary NO GROWTH AFTER 4 DAYS Med Orders - Current: Current Medications Discontinued Medications Acetaminophen (Tylenol Arthritis Pain) 1,300 mg PO Q12HR [facility] Last Admin: 08/23/18 08:34 Dose: 1,300 mg Albuterol/Ipratropium (Duoneb 3.0-0.5 Mg/3 Ml) 3 ml NEB Q4H PRN PRN Reason: Dyspnea Albuterol/Ipratropium (Duoneb 3.0-0.5 Mg/3 Ml) 3 ml NEB Q4HRRT [facility] Last Admin: 08/20/18 11:30 Dose: 3 ml Albuterol/Ipratropium (Duoneb 3.0-0.5 Mg/3 Ml) 3 ml NEB QIDRT [facility] Last Admin: 08/23/18 12:26 Dose: 3 ml Aspirin (Halfprin) 81 mg PO QAM [facility] Azithromycin (Zithromax) 500 mg PO DAILY@1200 [facility] Last Admin: 08/23/18 12:26 Dose: 500 mg Brimonidine Tartrate (Alphagan 0.2% Ophth Soln) 0 ml EYEBOTH Q12H [facility] Last Admin: 08/19/18 15:43 Dose: Not Given Brimonidine Tartrate (Alphagan 0.2% Ophth Soln) 0 ml EYEBOTH Q12HR [facility] Last Admin: 08/23/18 08:19 Dose: 1 drop Ceftriaxone Sodium (Rocephin) 1 gm IVPUSH Q12H [facility] Last Admin: 08/23/18 02:42 Dose: 1 gm Clopidogrel Bisulfate (Plavix) 75 mg PO DAILY [facility] Docusate Sodium (Colace) 100 mg PO DAILY PRN PRN Reason: Constipation Enoxaparin Sodium (Lovenox) 30 mg SUBCUT DAILY [facility] Last Admin: 08/23/18 08:21 Dose: 30 mg Finasteride (Proscar) 5 mg PO DAILY [facility] Last Admin: 08/23/18 08:33 Dose: 5 mg Furosemide (Lasix) 40 mg IVPUSH DAILY [facility] Last Admin: 08/23/18 08:23 Dose: 40 mg Azithromycin 500 mg/ Sodium (Chloride) 250 mls @ 250 mls/hr IV Q24H [facility] Stop: 08/21/18 15:59 Last Admin: 08/21/18 15:17 Dose: 250 mls/hr Metronidazole 500 mg/ Premix 100 mls @ 100 mls/hr IV Q8H [facility] Last Infusion: 08/23/18 14:15 Dose: Infused Latanoprost (Xalatan 0.005% Ophth Soln) 0 ml EYEBOTH BEDTIME [facility] Last Admin: 08/22/18 21:36 Dose: 1 drop Levothyroxine Sodium (Levothyroxine) 75 mcg PO DAILY [facility] Last Admin: 08/23/18 08:36 Dose: 75 mcg Magnesium Hydroxide (Milk Of Magnesia) 30 ml PO ASDIRECTED PRN PRN Reason: contipation Metformin HCl (Glucophage) 500 mg PO Q12HR [facility] Last Admin: 08/23/18 08:39 Dose: 500 mg Methyl Salicylate (Icy Hot Cream) 1 gm TOP ASDIRECTED PRN PRN Reason: Joint Pain Last Admin: 08/21/18 08:26 Dose: 1 applic Methylprednisolone Sodium Succinate (Solu-Medrol) 40 mg IVPUSH DAILY [facility] Last Admin: 08/21/18 08:41 Dose: 40 mg Methylprednisolone Sodium Succinate (Solu-Medrol) 40 mg IVPUSH Q8H [facility] Last Admin: 08/23/18 08:23 Dose: 40 mg Metoprolol Tartrate (Lopressor) 12.5 mg PO BID [facility] Last Admin: 08/23/18 08:39 Dose: 12.5 mg Omeprazole (Omeprazole) 20 mg PO DAILY [facility] Last Admin: 08/21/18 08:32 Dose: 20 mg Ondansetron HCl (Zofran) 4 mg IVPUSH Q6H PRN PRN Reason: Nausea/Vomiting Oxybutynin Chloride (Oxybutynin Er) 15 mg PO DAILY [facility] Last Admin: 08/23/18 08:32 Dose: 15 mg Pantoprazole Sodium (Protonix Iv) 40 mg IVPUSH BEDTIME [facility] Last Admin: 08/22/18 21:33 Dose: 40 mg Sertraline HCl (Zoloft) 150 mg PO DAILY [facility] Last Admin: 08/23/18 08:38 Dose: 150 mg Simvastatin (Zocor) 20 mg PO BEDTIME [facility] Last Admin: 08/22/18 21:32 Dose: 20 mg Sodium Chloride (Saline Flush) 10 ml FLUSH ASDIRECTED PRN PRN Reason: Keep Vein Open Last Admin: 08/23/18 14:21 Dose: 10 ml Sodium Chloride (Saline Flush) 10 ml FLUSH Q12HR [facility] Last Admin: 08/23/18 08:24 Dose: 10 ml Tamsulosin HCl (Flomax) 0.4 mg PO BEDTIME [facility] Last Admin: 08/22/18 21:30 Dose: 0.4 mg - Exam Quality Assessment: DVT Prophylaxis General: Alert, Cooperative HEENT: EOMI, Mucous Membr. Moist/[place] Neck: Trachea Midline, No JVD Lungs: Normal Respiratory Effort, Decreased Breath Sounds, Rhonchi (LLL) Cardiovascular: Regular Rate, Regular Rhythm GI/Abdominal Exam: Soft, Non-Tender, No Distention (Male) Exam: Deferred Back Exam: Normal Inspection Extremities: Normal Inspection, Non-Tender Skin: Warm, Dry, Intact Neurological: No New Focal Deficit, Other (generalized weakness) Psy/Mental Status: Alert, Depressed - Problem List & Annotations (1) Pneumonia SNOMED Code(s): 357720818 Code(s): J18.9 - PNEUMONIA, UNSPECIFIED ORGANISM Status: Acute Qualifiers: Pneumonia type: aspiration pneumonia Aspiration pneumonia type: due to gastric secretions Laterality: left Lung location: lower lobe of lung Qualified Code(s): J69.0 - Pneumonitis due to inhalation of food and vomit (2) Anemia SNOMED Code(s): 811373923 Code(s): D64.9 - ANEMIA, UNSPECIFIED Status: Acute Priority: Medium Onset Date: 06/09/18 Qualifiers: Anemia type: unspecified type Qualified Code(s): D64.9 - Anemia, unspecified (3) CHF, Congestive heart failure SNOMED Code(s): 06114676 Code(s): I50.9 - HEART FAILURE, UNSPECIFIED Status: Acute Priority: Medium (4) COPD (chronic obstructive pulmonary disease) SNOMED Code(s): 69868702 Code(s): J44.9 - CHRONIC OBSTRUCTIVE PULMONARY DISEASE, UNSPECIFIED Status : Acute Priority: High Onset Date: 06/09/18 Qualifiers: COPD type: COPD with acute lower respiratory infection Qualified Code(s): J44.0 - Chronic obstructive pulmonary disease with acute lower respiratory infection (5) Renal insufficiency SNOMED Code(s): 906763741, 234274294 Code(s): N28.9 - DISORDER OF KIDNEY AND URETER, UNSPECIFIED Status: Acute Priority: Medium Onset Date: 06/09/18 (6) BPH (benign prostatic hypertrophy) SNOMED Code(s): 554529389 Code(s): N40.0 - BENIGN PROSTATIC HYPERPLASIA WITHOUT LOWER URINRY TRACT SYMP Status: Chronic Priority: High Qualifiers: Lower urinary tract symptom presence: symptoms present Lower urinary tract symptom detail: unspecified Qualified Code(s): N40.1 - Benign prostatic hyperplasia with lower urinary tract symptoms (7) Diabetes SNOMED Code(s): 89024325 Code(s): E11.9 - TYPE 2 DIABETES MELLITUS WITHOUT COMPLICATIONS Status: Chronic Priority: Medium Qualifiers: Diabetes mellitus type: type 2 Diabetes mellitus terminal operations supervisor insulin use: without usp use Diabetes mellitus complication status: with kidney complications Diabetes mellitus complication detail: with chronic kidney disease Chronic kidney disease stage: stage 3 (moderate) Qualified Code(s): E11.22 - Type 2 diabetes mellitus with diabetic chronic kidney disease; N18.3 - Chronic kidney disease, stage 3 (moderate) (8) Hypertension SNOMED Code(s): 74818620 Code(s): I10 - ESSENTIAL (PRIMARY) HYPERTENSION Status: Chronic Priority : Medium Qualifiers: Hypertension type: essential hypertension Qualified Code(s): I10 - Essential (primary) hypertension (9) Mixed anxiety depressive disorder SNOMED Code(s): 933386096 Code(s): F41.8 - OTHER SPECIFIED ANXIETY DISORDERS Status: Chronic Priority: Medium (10) Osteoarthritis SNOMED Code(s): 489203418 Code(s): M19.90 - UNSPECIFIED OSTEOARTHRITIS, UNSPECIFIED SITE Status: Chronic Priority: Medium Qualifiers: Osteoarthritis location: multiple joints Osteoarthritis type: primary Qualified Code(s): M15.0 - Primary generalized (osteo)arthritis (11) Parkinsons disease SNOMED Code(s): 50522597 Code(s): G20 - PARKINSON'S DISEASE Status: Chronic Priority: Medium Onset Date: ~06/09/18 (12) Peptic reflux disease SNOMED Code(s): 116177834 Code(s): K21.9 - GASTRO-ESOPHAGEAL REFLUX DISEASE WITHOUT ESOPHAGITIS Status: Chronic Priority: Medium - Problem List Review Problem List Initiated/Reviewed/Updated: Yes - My Orders Last 24 Hours: My Active Orders 08/23/18 12:41 Ready for Discharge [RC] PER UNIT ROUTINE - Assessment Assessment:: 08/20/18 Arleen Brumfield MD He feels a little bit better. Continue medical therapy. - Plan Plan:: 08/19/2018 Patient is admitted to inpatient stay for pneumonia, CHF and COPD. Started on IV antibiotics and IV Lasix. ordered sputum, urine cultures and blood cultures. recheck labs in the morning. Discussed with Dr Bacon the plan of care. Patient hopes to return to the Basic side at the [facility]. Consulted PT. Patient is NO CODE status. Patient agrees to hospitalization in [place]. Tammy Cunningham,HEALTH CARE FACILITIES INSPECTOR 08/20/18 Arleen Brumfield MD He feels a little bit better. Continue medical therapy. 08/21/18 Arleen Brumfield MD Slow clinical improvement. Discussed discharge plans to [facility] skilled. He states he prefers Basic. Discussed continued inpatient status. He is weaker and requiring PT-OT. 08/22/18 Arleen Brumfield MD Still with cough and shortness of breath. Arthritis pains maybe a little bit better on increased dose of IV solumedrol. Continue inpatient staus. 08/23/18 Arleen Brumfield MD Still has pain and feels weak. Still with cough and some shortness of breath although does feel he is clinically improving. Labs starting to improve. He is requiring continued IV antibiotics, IV solumedrol, IV lasix. We are unable to transfer him back to [facility] today because medications are not available until Saturday and transportation is also a problem on the week end. He also medically requiring PT-OT-ST although he has not been compliant with ST. Medically qualifying for swing bed status.
--- NOTE | 2018-08-23 23:43 | PCM.DCSUM1 ---
Discharge Summary - Hospital Course Diagnosis: Stroke: No - Discharge Data Discharge Date: 08/23/18 Discharge Disposition: DC/Tfer W/I Hosp To Swing 61 Condition: Good - Discharge Diagnosis/Problem(s) (1) Pneumonia SNOMED Code(s): 132414407 ICD Code: J18.9 - PNEUMONIA, UNSPECIFIED ORGANISM Status: Acute Qualifiers: Pneumonia type: aspiration pneumonia Aspiration pneumonia type: due to gastric secretions Laterality: left Lung location: lower lobe of lung Qualified Code(s): J69.0 - Pneumonitis due to inhalation of food and vomit (2) Anemia SNOMED Code(s): 143943761 ICD Code: D64.9 - ANEMIA, UNSPECIFIED Status: Acute Priority: Medium Onset Date: 06/09/18 Qualifiers: Anemia type: unspecified type Qualified Code(s): D64.9 - Anemia, unspecified (3) CHF, Congestive heart failure SNOMED Code(s): 90149526 ICD Code: I50.9 - HEART FAILURE, UNSPECIFIED Status: Acute Priority: Medium (4) COPD (chronic obstructive pulmonary disease) SNOMED Code(s): 64533005 ICD Code: J44.9 - CHRONIC OBSTRUCTIVE PULMONARY DISEASE, UNSPECIFIED Status : Acute Priority: High Onset Date: 06/09/18 Qualifiers: COPD type: COPD with acute lower respiratory infection Qualified Code(s): J44.0 - Chronic obstructive pulmonary disease with acute lower respiratory infection (5) Renal insufficiency SNOMED Code(s): 685366983, 476622205 ICD Code: N28.9 - DISORDER OF KIDNEY AND URETER, UNSPECIFIED Status: Acute Priority: Medium Onset Date: 06/09/18 (6) BPH (benign prostatic hypertrophy) SNOMED Code(s): 045736658 ICD Code: N40.0 - BENIGN PROSTATIC HYPERPLASIA WITHOUT LOWER URINRY TRACT SYMP Status: Chronic Priority: High Qualifiers: Lower urinary tract symptom presence: symptoms present Lower urinary tract symptom detail: unspecified Qualified Code(s): N40.1 - Benign prostatic hyperplasia with lower urinary tract symptoms (7) Diabetes SNOMED Code(s): 57057309 ICD Code: E11.9 - TYPE 2 DIABETES MELLITUS WITHOUT COMPLICATIONS Status: Chronic Priority: Medium Qualifiers: Diabetes mellitus type: type 2 Diabetes mellitus manager long term care insulin use: without [place] [facility] use Diabetes mellitus complication status: with kidney complications Diabetes mellitus complication detail: with chronic kidney disease Chronic kidney disease stage: stage 3 (moderate) Qualified Code(s): E11.22 - Type 2 diabetes mellitus with diabetic chronic kidney disease; N18.3 - Chronic kidney disease, stage 3 (moderate) (8) Hypertension SNOMED Code(s): 32683561 ICD Code: I10 - ESSENTIAL (PRIMARY) HYPERTENSION Status: Chronic Priority : Medium Qualifiers: Hypertension type: essential hypertension Qualified Code(s): I10 - Essential (primary) hypertension (9) Mixed anxiety depressive disorder SNOMED Code(s): 727835013 ICD Code: F41.8 - OTHER SPECIFIED ANXIETY DISORDERS Status: Chronic Priority: Medium (10) Osteoarthritis SNOMED Code(s): 238221041 ICD Code: M19.90 - UNSPECIFIED OSTEOARTHRITIS, UNSPECIFIED SITE Status: Chronic Priority: Medium Qualifiers: Osteoarthritis location: multiple joints Osteoarthritis type: primary Qualified Code(s): M15.0 - Primary generalized (osteo)arthritis (11) Parkinsons disease SNOMED Code(s): 42385212 ICD Code: G20 - PARKINSON'S DISEASE Status: Chronic Priority: Medium Onset Date: ~06/09/18 (12) Peptic reflux disease SNOMED Code(s): 300822663 ICD Code: K21.9 - GASTRO-ESOPHAGEAL REFLUX DISEASE WITHOUT ESOPHAGITIS Status: Chronic Priority: Medium - Patient Summary/Data Consults: Consultations 08/19/18 13:54 Consult to Physical Therapy [PT Evaluation and Treatment] [CONS] Routine 08/20/18 09:37 Consult to Case Management/Detonator Maker [CONS] Routine Consult to Speech Language Pathology [PLAIN GOODS HEMMER Evaluation and Treatment] [CONS] Routine 08/20/18 14:37 OT Evaluation and Treatment [CONS] Routine - Patient Instructions Diet: Diabetic Diet Activity: As Tolerated Driving: Do Not Drive Showering/Bathing: May Shower - Discharge Plan *PRESCRIPTION DRUG MONITORING PROGRAM REVIEWED*: Not Applicable *COPY OF PRESCRIPTION DRUG MONITORING REPORT IN PATIENT MARLENE: Not Applicable Home Medications: Home Meds Aspirin [Halfprin] 81 mg PO QAM 09/19/14 [History] Brimonidine Tartrate [Brimonidine Tartrate 0.2% Ophth Soln] 1 drop EYEBOTH Q12H 09/19/14 [History] Cholecalciferol (Vitamin D3) [Vitamin D3] 400 unit PO QAM 09/19/14 [History] Latanoprost [Xalatan 0.005% Ophth Soln] 1 drop EYEBOTH BEDTIME 09/19/14 [History ] Simvastatin [Zocor] 20 mg PO BEDTIME 09/19/14 [History] Acetaminophen [Tylenol Arthritis Pain] 1,300 mg PO Q12H 05/26/15 [History] Diclofenac Sodium [Voltaren 1% Gel] 1 applic TOP QID@08,12,16,20 05/26/15 [ History] Clopidogrel Bisulfate [Clopidogrel] 1 tab PO DAILY 08/15/15 [History] Finasteride [Proscar] 1 tab PO DAILY 08/15/15 [History] Tamsulosin HCl [Flomax] 1 cap PO BEDTIME 08/15/15 [History] Methyl Salicylate/Menthol [Thera-Gesic Analgesic] 1 applic TOP ASDIRECTED PRN [History] Levothyroxine 75 mcg PO ACBREAKFAST 08/01/16 [History] Sertraline [Zoloft] 100 mg PO DAILY 08/01/16 [History] Magnesium Hydroxide [Milk of Magnesia] 30 ml PO ASDIRECTED PRN 08/02/16 [History ] Omeprazole Magnesium [Prilosec Otc] 20 mg PO DAILY 06/13/17 [History] metFORMIN [Glucophage] 500 mg PO Q12H 06/13/17 [History] Docusate Sodium [Colace] 100 mg PO DAILY PRN 06/09/18 [History] Metoprolol Tartrate 12.5 mg PO BID 07/03/18 [History] Oxybutynin Chloride [Oxybutynin Chloride ER] 1 tab PO DAILY 07/03/18 [History] Furosemide [Lasix] 20 mg PO DAILY 08/19/18 [History] Patient Handouts: Aspiration Pneumonia - Discharge Summary/Plan Comment DC Time >30 min.: No - Patient Data Vitals - Most Recent: Last Vital Signs Temp 98.1 F 08/23/18 11:42 Pulse 69 08/23/18 11:42 Resp 16 08/23/18 11:42 BP 127/54 L 08/23/18 11:42 Pulse Ox 93 L 08/23/18 11:42 Weight - Most Recent: 162 lb 11.183 oz I&O - Last 24 hours: Intake & Output 08/23/18 08/23/18 08/24/18 14:59 22:59 06:59 Intake Total 840 Output Total 1400 Balance -560 Lab Results - Last 24 hrs: Laboratory Results - last 24 hr 08/23/18 08/23/18 08/23/18 Range/Units 07:21 07:25 07:25 WBC 9.4 (4.0-10.2) K/uL RBC 3.65 L (4.33-5.41) M/uL Hgb 10.5 L (13.1-16.8) g/dL Hct 34.0 L (39.0-49.0) % MCV 93.2 (84.0-98.0) fL MCH 28.8 (28.2-33.3) pg MCHC 30.9 L (31.7-36.0) g/dL RDW 15.3 H (11.2-14.1) % Plt Count 292 (150-350) K/uL Neut % (Auto) 85.5 H (45.0-80.0) % Lymph % (Auto) 8.0 L (10.0-50.0) % [place] % (Auto) 6.4 (2.0-14.0) % Eos % (Auto) 0.0 (0.0-5.0) % Baso % (Auto) 0.1 (0.0-2.0) % Neut # (Auto) 8.00 H (1.40-7.00) K/uL Lymph # (Auto) 0.75 (0.50-3.50) K/uL [place] # (Auto) 0.60 (0.00-1.00) K/uL Eos # (Auto) 0.00 (0.00-0.50) K/uL Baso # (Auto) 0.01 (0.00-0.20) K/uL Sodium 142 (136-145) mmol/L Potassium 4.3 (3.5-5.1) mmol/L Chloride 105 (98-107) mmol/L Carbon Dioxide 25.7 (21.0-32.0) mmol/L BUN 28 H (7-18) mg/dL Creatinine 0.86 (0.51-1.17) mg/dL Est Cr Clr Drug Dosing 55.37 mL/min Estimated GFR (MDRD) > 60 mL/min Glucose 154 H (74-106) mg/dL POC Glucose 155 H (65-110) mg/dl Calcium 9.3 (8.5-10.1) mg/dL Total Bilirubin 0.2 (0.2-1.0) mg/dL AST 10 L (15-37) U/L ALT 15 (12-78) U/L Alkaline Phosphatase 73 (46-116) IU/L C-Reactive Protein 1.4 H (<=0.9) mg/dL Total Protein 5.9 L (6.4-8.2) g/dL Albumin 3.0 L (3.4-5.0) g/dL [place] Results - Last 24 hrs: Microbiology 08/19/18 14:20 Aerobic Blood Culture - Preliminary Blood - Venous - Lab Draw NO GROWTH AFTER 4 DAYS Anaerobic Blood Culture - Preliminary NO GROWTH AFTER 4 DAYS 08/19/18 14:10 Aerobic Blood Culture - Preliminary Blood - Venous NO GROWTH AFTER 4 DAYS Anaerobic Blood Culture - Preliminary NO GROWTH AFTER 4 DAYS Med Orders - Current: Current Medications Discontinued Medications Acetaminophen (Tylenol Arthritis Pain) 1,300 mg PO Q12HR [facility] Last Admin: 08/23/18 08:34 Dose: 1,300 mg Albuterol/Ipratropium (Duoneb 3.0-0.5 Mg/3 Ml) 3 ml NEB Q4H PRN PRN Reason: Dyspnea Albuterol/Ipratropium (Duoneb 3.0-0.5 Mg/3 Ml) 3 ml NEB Q4HRRT [facility] Last Admin: 08/20/18 11:30 Dose: 3 ml Albuterol/Ipratropium (Duoneb 3.0-0.5 Mg/3 Ml) 3 ml NEB QIDRT [facility] Last Admin: 08/23/18 12:26 Dose: 3 ml Aspirin (Halfprin) 81 mg PO QAM [facility] Azithromycin (Zithromax) 500 mg PO DAILY@1200 [facility] Last Admin: 08/23/18 12:26 Dose: 500 mg Brimonidine Tartrate (Alphagan 0.2% Ophth Soln) 0 ml EYEBOTH Q12H [facility] Last Admin: 08/19/18 15:43 Dose: Not Given Brimonidine Tartrate (Alphagan 0.2% Ophth Soln) 0 ml EYEBOTH Q12HR [facility] Last Admin: 08/23/18 08:19 Dose: 1 drop Ceftriaxone Sodium (Rocephin) 1 gm IVPUSH Q12H [facility] Last Admin: 08/23/18 02:42 Dose: 1 gm Clopidogrel Bisulfate (Plavix) 75 mg PO DAILY [facility] Docusate Sodium (Colace) 100 mg PO DAILY PRN PRN Reason: Constipation Enoxaparin Sodium (Lovenox) 30 mg SUBCUT DAILY [facility] Last Admin: 08/23/18 08:21 Dose: 30 mg Finasteride (Proscar) 5 mg PO DAILY [facility] Last Admin: 08/23/18 08:33 Dose: 5 mg Furosemide (Lasix) 40 mg IVPUSH DAILY [facility] Last Admin: 08/23/18 08:23 Dose: 40 mg Azithromycin 500 mg/ Sodium (Chloride) 250 mls @ 250 mls/hr IV Q24H [facility] Stop: 08/21/18 15:59 Last Admin: 08/21/18 15:17 Dose: 250 mls/hr Metronidazole 500 mg/ Premix 100 mls @ 100 mls/hr IV Q8H [facility] Last Infusion: 08/23/18 14:15 Dose: Infused Latanoprost (Xalatan 0.005% Ophth Soln) 0 ml EYEBOTH BEDTIME [facility] Last Admin: 08/22/18 21:36 Dose: 1 drop Levothyroxine Sodium (Levothyroxine) 75 mcg PO DAILY [facility] Last Admin: 08/23/18 08:36 Dose: 75 mcg Magnesium Hydroxide (Milk Of Magnesia) 30 ml PO ASDIRECTED PRN PRN Reason: contipation Metformin HCl (Glucophage) 500 mg PO Q12HR [facility] Last Admin: 08/23/18 08:39 Dose: 500 mg Methyl Salicylate (Icy Hot Cream) 1 gm TOP ASDIRECTED PRN PRN Reason: Joint Pain Last Admin: 08/21/18 08:26 Dose: 1 applic Methylprednisolone Sodium Succinate (Solu-Medrol) 40 mg IVPUSH DAILY [facility] Last Admin: 08/21/18 08:41 Dose: 40 mg Methylprednisolone Sodium Succinate (Solu-Medrol) 40 mg IVPUSH Q8H [facility] Last Admin: 08/23/18 08:23 Dose: 40 mg Metoprolol Tartrate (Lopressor) 12.5 mg PO BID [facility] Last Admin: 08/23/18 08:39 Dose: 12.5 mg Omeprazole (Omeprazole) 20 mg PO DAILY [facility] Last Admin: 08/21/18 08:32 Dose: 20 mg Ondansetron HCl (Zofran) 4 mg IVPUSH Q6H PRN PRN Reason: Nausea/Vomiting Oxybutynin Chloride (Oxybutynin Er) 15 mg PO DAILY [facility] Last Admin: 08/23/18 08:32 Dose: 15 mg Pantoprazole Sodium (Protonix Iv) 40 mg IVPUSH BEDTIME [facility] Last Admin: 08/22/18 21:33 Dose: 40 mg Sertraline HCl (Zoloft) 150 mg PO DAILY [facility] Last Admin: 08/23/18 08:38 Dose: 150 mg Simvastatin (Zocor) 20 mg PO BEDTIME [facility] Last Admin: 08/22/18 21:32 Dose: 20 mg Sodium Chloride (Saline Flush) 10 ml FLUSH ASDIRECTED PRN PRN Reason: Keep Vein Open Last Admin: 08/23/18 14:21 Dose: 10 ml Sodium Chloride (Saline Flush) 10 ml FLUSH Q12HR [facility] Last Admin: 08/23/18 08:24 Dose: 10 ml Tamsulosin HCl (Flomax) 0.4 mg PO BEDTIME [facility] Last Admin: 08/22/18 21:30 Dose: 0.4 mg
== END 2018-08-23 13:00 | disposition swing bed (61) | DRG 178 ==
LOC: LL.DI 11:59 → LL.MS 13:11
PROVIDERS: ADMIT Nurse Practitioner Family; ATTEND Family Medicine
DX: J69.0 Pneumonitis due to inhalation of food and vomit (principal); I13.0 Hypertensive heart and chronic kidney disease with heart failure and stage 1 through stage 4 chronic kidney disease, or unspecified chronic kidney disease; H40.9 Unspecified glaucoma; I50.9 Heart failure, unspecified; J44.9 Chronic obstructive pulmonary disease, unspecified; K21.9 Gastro-esophageal reflux disease without esophagitis; E03.9 Hypothyroidism, unspecified; Z96.1 Presence of intraocular lens; D64.9 Anemia, unspecified; N40.1 Benign prostatic hyperplasia with lower urinary tract symptoms; N18.3 Chronic kidney disease, stage 3 (moderate); E11.22 Type 2 diabetes mellitus with diabetic chronic kidney disease; F41.8 Other specified anxiety disorders; M15.0 Primary generalized (osteo)arthritis; G20 Parkinson's disease; Z88.0 Allergy status to penicillin; Z88.1 Allergy status to other antibiotic agents; Z91.041 Radiographic dye allergy status; Z79.82 Long term (current) use of aspirin; Z98.49 Cataract extraction status, unspecified eye; Z86.73 Personal history of transient ischemic attack (TIA), and cerebral infarction without residual deficits; Z79.84 Long term (current) use of oral hypoglycemic drugs
CPT/HCPCS: 36415; 71046; 74019; 74230; 80053; 81001; 82803; 82962; 85025; 86140; 86738; 87040; 87086; 92526-GN; 92610-GN; 92611-GN; 94640; 97110-GP; 97116-GP; 97161-GP; 97165-GO; 97530-GP; 97535-GO; A4217; A9270-GY; C9113; J0456; J0696; J1650; J1940; J2920; J3490; J7050; J7620-GY

== ENCOUNTER 2018-08-22 16:32 | Inpatient (IN) | payer MEDICARE, BC ==
[2018-08-23] MEDS ORDERED: Ondansetron 4 MG/2 ML SDV IVPUSH PRN (12:35)
[2018-08-23] MEDS ORDERED: Menthol/Methyl Salicylate 85 GM Tube TOP PRN (12:35)
[2018-08-23] MEDS ORDERED: Albuterol/Ipratropium 3.0-0.5 MG/3 ML Neb Soln NEB PRN (12:35)
[2018-08-23] MEDS ORDERED: Docusate Sodium 100 MG Cap PO PRN (12:35)
[2018-08-23] MEDS ORDERED: Magnesium Hydroxide 400 MG/5 ML Susp 30 ML Cup PO PRN (12:35)
[2018-08-23] MEDS: metroNIDAZOLE/Normal Saline 500 MG in Premix Bag 1 BAG IV SCH ×2 (13:50→21:27)
[2018-08-23] MEDS: cefTRIAXone 1 GM Vial IVPUSH SCH (14:20)
[2018-08-23] MEDS: methylPREDNISolone Sodium Succinate 40 MG/1 ML SDV IVPUSH SCH (16:47)
[2018-08-23] MEDS: Albuterol/Ipratropium 3.0-0.5 MG/3 ML Neb Soln NEB SCH ×2 (16:48→19:43)
[2018-08-23] MEDS: Sodium Chloride 0.9% 10 ML Syringe FLUSH PRN ×2 (17:07→21:28)
[2018-08-23] MEDS: metFORMIN 500 MG Tab PO SCH (17:13)
[2018-08-23] MEDS: Metoprolol Tartrate 25 MG Tab PO SCH (17:13)
[2018-08-23] MEDS: Latanoprost 0.005% Ophth Soln 2.5 ML Bottle EYEBOTH SCH (19:38)
[2018-08-23] MEDS: Brimonidine 0.2% Ophth Soln 5 ML Bottle EYEBOTH SCH (19:38)
[2018-08-23] MEDS: Pantoprazole 40 MG Vial IVPUSH SCH (19:39)
[2018-08-23] MEDS: Sodium Chloride 0.9% 10 ML Syringe FLUSH SCH (19:39)
[2018-08-23] MEDS: Acetaminophen 650 MG Tab.ER PO SCH (19:45)
[2018-08-23] MEDS: Tamsulosin 0.4 MG Cap.ER PO SCH (19:47)
[2018-08-23] MEDS: Simvastatin 20 MG Tab PO SCH (19:47)
--- NOTE | 2018-08-23 23:49 | PCM.HP ---
H&P History of Present Illness - General Date of Service: 08/23/18 Admit Problem/Dx: Admission Diagnosis/Problem Admission Diagnosis/Problem Pneumonia Source of Information: Patient, Old Records History Limitations: Reports: No Limitations Middle Anterior Abdominal Pain Score (Numeric/FACES): 5 Bilateral Lower Knee Pain Score (Numeric/FACES): 6 - Related Data Allergies/Adverse Reactions: Allergies Allergy/AdvReac Type Severity Reaction Status Date / Time Iodinated Contrast- Oral and Allergy Nausea and Verified 07/03/18 11:15 IV Dye Vomiting [Iodinated Contrast Media - IV Dye] levofloxacin [From Levaquin] Allergy Cannot Verified 07/03/18 11:15 Remember Penicillins Allergy Hives Verified 07/03/18 11:15 Home Medications: Home Meds Aspirin [Halfprin] 81 mg PO QAM 09/19/14 [History] Brimonidine Tartrate [Brimonidine Tartrate 0.2% Ophth Soln] 1 drop EYEBOTH Q12H 09/19/14 [History] Cholecalciferol (Vitamin D3) [Vitamin D3] 400 unit PO QAM 09/19/14 [History] Latanoprost [Xalatan 0.005% Ophth Soln] 1 drop EYEBOTH BEDTIME 09/19/14 [History ] Simvastatin [Zocor] 20 mg PO BEDTIME 09/19/14 [History] Acetaminophen [Tylenol Arthritis Pain] 1,300 mg PO Q12H 05/26/15 [History] Diclofenac Sodium [Voltaren 1% Gel] 1 applic TOP QID@08,12,16,20 05/26/15 [ History] Clopidogrel Bisulfate [Clopidogrel] 1 tab PO DAILY 08/15/15 [History] Finasteride [Proscar] 1 tab PO DAILY 08/15/15 [History] Tamsulosin HCl [Flomax] 1 cap PO BEDTIME 08/15/15 [History] Methyl Salicylate/Menthol [Thera-Gesic Analgesic] 1 applic TOP ASDIRECTED PRN [History] Levothyroxine 75 mcg PO ACBREAKFAST 08/01/16 [History] Sertraline [Zoloft] 100 mg PO DAILY 08/01/16 [History] Magnesium Hydroxide [Milk of Magnesia] 30 ml PO ASDIRECTED PRN 08/02/16 [History ] Omeprazole Magnesium [Prilosec Otc] 20 mg PO DAILY 06/13/17 [History] metFORMIN [Glucophage] 500 mg PO Q12H 06/13/17 [History] Docusate Sodium [Colace] 100 mg PO DAILY PRN 06/09/18 [History] Metoprolol Tartrate 12.5 mg PO BID 07/03/18 [History] Oxybutynin Chloride [Oxybutynin Chloride ER] 1 tab PO DAILY 07/03/18 [History] Furosemide [Lasix] 20 mg PO DAILY 08/19/18 [History] Past Medical History HEENT History: Reports: Allergic Rhinitis, Cataract, Glaucoma, Sinusitis, Other (See Below) Other HEENT History: dysphagia Cardiovascular History: Reports: Heart Failure, Hypertension Other Cardiovascular History: Atherosclerotic heart disease Respiratory History: Reports: COPD Gastrointestinal History: Reports: Diverticulosis, GERD Other Gastrointestinal History: Ventral hernia. Peptic ulcer Genitourinary History: Reports: BPH Other Genitourinary History: BPH with PSA elevation diagnosed in 2019. Musculoskeletal History: Reports: Osteoarthritis Other Musculoskeletal History: Chronic pain. rotator cuff syndrome of L shoulder with chronic pain. Hammer toes of L foot. generalized weakness Neurological History: Reports: CVA, Headaches, Chronic, TIA Other Neuro History: History of recurrent falls and nonspecific generalized weakness. 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 Psychiatric History: Reports: Anxiety, Depression Endocrine/Metabolic History: Reports: Diabetes, Type II, Hypothyroidism Hematologic History: Reports: None Immunologic History: Reports: None Oncologic (Cancer) History: Reports: None Dermatologic History: Reports: Other (See Below) Other Dermatologic History: Dermatitis. Corns. calluses - Infectious Disease History Infectious Disease History: Reports: MRSA - Past Surgical History Head Surgeries/Procedures: Reports: None HEENT Surgical History: Reports: Cataract Surgery, Other (See Below) Other HEENT Surgeries/Procedures: Intraocular lens Social & Family History - Family History Family Medical History: Unobtainable - Tobacco Use Smoking Status *Q: Unknown Ever Smoked Second Hand Smoke Exposure: No - Caffeine Use Caffeine Use: Reports: None - Recreational Drug Use Recreational Drug Use: No - Living Situation & Occupation Living situation: Reports: Extended Care Facility ([facility] in [facility]) H&P Review of Systems - Review of Systems: Review Of Systems: See Below General: Reports: Weakness HEENT: Reports: No Symptoms Pulmonary: Reports: Shortness of Breath, Cough Cardiovascular: Reports: No Symptoms Gastrointestinal: Reports: No Symptoms Genitourinary: Reports: No Symptoms Musculoskeletal: Reports: Other (pain all over) Skin: Reports: No Symptoms Psychiatric: Reports: Depression Neurological: Reports: Weakness, Other (dysphagia) Hematologic/Lymphatic: Reports: No Symptoms Immunologic: Reports: No Symptoms Exam - Exam Exam: See Below - Vital Signs Vital Signs: Last Vital Signs Temp 97 F 08/23/18 20:00 Pulse 72 08/23/18 20:00 Resp 17 08/23/18 20:00 BP 125/75 08/23/18 20:00 Pulse Ox 90 L 08/23/18 20:00 Weight: 162 lb - Exam Quality Assessment: DVT Prophylaxis General: Alert, Cooperative HEENT: Conjunctiva Clear, Hearing Intact, Mucosa Moist & [place] Neck: Trachea Midline Lungs: Normal Respiratory Effort, Decreased Breath Sounds, Rhonchi (LLL) Cardiovascular: Regular Rate, Regular Rhythm GI/Abdominal Exam: Soft, Non-Tender, No Distention (Male) Exam: Deferred Rectal (Males) Exam: Deferred Back Exam: Normal Inspection Extremities: Normal Inspection, Non-Tender Skin: Warm, Dry, Intact Neurological: Other (generalized weakness) Neuro Extensive - Mental Status: Alert, Normal Cognition, Memory Intact Neuro Extensive - Motor, Sensory, Reflexes: Other (dysphagia) Psychiatric: Alert, Depressed - Patient Data Lab Results Last 24 hrs: Laboratory Results - last 24 hr 08/23/18 Range/Units 17:14 POC Glucose 135 H (65-110) mg/dl - Problem List (1) Pneumonia SNOMED Code(s): 125489456 ICD Code: J18.9 - PNEUMONIA, UNSPECIFIED ORGANISM Status: Acute Priority : High Current Visit: No Onset Date: ~06/09/18 Problem Details: Probable left lower lobe pneumonia with IV Rocephin initiated as above. Qualifiers: Pneumonia type: aspiration pneumonia Aspiration pneumonia type: due to gastric secretions Laterality: left Lung location: lower lobe of lung Qualified Code(s): J69.0 - Pneumonitis due to inhalation of food and vomit (2) COPD (chronic obstructive pulmonary disease) SNOMED Code(s): 23111518 ICD Code: J44.9 - CHRONIC OBSTRUCTIVE PULMONARY DISEASE, UNSPECIFIED Status : Acute Priority: High Current Visit: No Onset Date: 06/09/18 Qualifiers: COPD type: COPD with acute lower respiratory infection Qualified Code(s): J44.0 - Chronic obstructive pulmonary disease with acute lower respiratory infection (3) Ventral hernia without obstruction or gangrene SNOMED Code(s): 777167679 ICD Code: K43.9 - VENTRAL HERNIA WITHOUT OBSTRUCTION OR GANGRENE Status: Acute Priority: Medium Current Visit: Yes (4) Renal insufficiency SNOMED Code(s): 204919856, 723070647 ICD Code: N28.9 - DISORDER OF KIDNEY AND URETER, UNSPECIFIED Status: Acute Priority: Medium Current Visit: No Onset Date: 06/09/18 (5) BPH (benign prostatic hypertrophy) SNOMED Code(s): 421218660 ICD Code: N40.0 - BENIGN PROSTATIC HYPERPLASIA WITHOUT LOWER URINRY TRACT SYMP Status: Chronic Priority: High Current Visit: No Qualifiers: Lower urinary tract symptom presence: symptoms present Lower urinary tract symptom detail: unspecified Qualified Code(s): N40.1 - Benign prostatic hyperplasia with lower urinary tract symptoms (6) Diabetes SNOMED Code(s): 14776980 ICD Code: E11.9 - TYPE 2 DIABETES MELLITUS WITHOUT COMPLICATIONS Status: Chronic Priority: Medium Current Visit: No Qualifiers: Diabetes mellitus type: type 2 Diabetes mellitus chcf insulin use: without continuous churn buttermaker use Diabetes mellitus complication status: with kidney complications Diabetes mellitus complication detail: with chronic kidney disease Chronic kidney disease stage: stage 3 (moderate) Qualified Code(s): E11.22 - Type 2 diabetes mellitus with diabetic chronic kidney disease; N18.3 - Chronic kidney disease, stage 3 (moderate) (7) Hypertension SNOMED Code(s): 46795231 ICD Code: I10 - ESSENTIAL (PRIMARY) HYPERTENSION Status: Chronic Priority : Medium Current Visit: No Qualifiers: Hypertension type: essential hypertension Qualified Code(s): I10 - Essential (primary) hypertension (8) Mixed anxiety depressive disorder SNOMED Code(s): 082364013 ICD Code: F41.8 - OTHER SPECIFIED ANXIETY DISORDERS Status: Chronic Priority: Medium Current Visit: No (9) Osteoarthritis SNOMED Code(s): 192461402 ICD Code: M19.90 - UNSPECIFIED OSTEOARTHRITIS, UNSPECIFIED SITE Status: Chronic Priority: Medium Current Visit: No Qualifiers: Osteoarthritis location: multiple joints Osteoarthritis type: primary Qualified Code(s): M15.0 - Primary generalized (osteo)arthritis (10) Parkinsons disease SNOMED Code(s): 49193160 ICD Code: G20 - PARKINSON'S DISEASE Status: Chronic Priority: Medium Current Visit: No Onset Date: ~06/09/18 (11) Peptic reflux disease SNOMED Code(s): 992600322 ICD Code: K21.9 - GASTRO-ESOPHAGEAL REFLUX DISEASE WITHOUT ESOPHAGITIS Status: Chronic Priority: Medium Current Visit: No (12) Generalized muscle weakness SNOMED Code(s): 77054438, 38317424 ICD Code: M62.81 - MUSCLE WEAKNESS (GENERALIZED) Status: Acute Priority: High Current Visit: Yes Problem List Initiated/Reviewed/Updated: Yes Orders Last 24hrs: Active Orders 24 hr Category Date Time Status Patient Status [ADT] Routine ADT 08/23/18 12:35 Active Accu Check [Blood Glucose Check, Bedside] [RC] BIDAC Care 08/23/18 12:35 Active Antiembolic Devices [RC] PER UNIT ROUTINE Care 08/23/18 12:35 Active Antiembolic Devices [RC] PER UNIT ROUTINE Care 08/23/18 12:36 Active Oxygen Therapy [RC] 2300 Care 08/23/18 12:35 Active Peripheral IV Care [RC] . DIRECTED Care 08/23/18 12:35 Active RT Aerosol Therapy [RC] ASDIRECTED Care 08/23/18 12:35 Active RT Aerosol Therapy [RC] ASDIRECTED Care 08/23/18 12:35 Active Up With Assistance [RC] ASDIRECTED Care 08/23/18 12:35 Active Vital Signs [RC] QID Care 08/23/18 12:35 Active Consult to Case Management/Director Product Management [CONS] Cons 08/23/18 12:35 Active Routine Consult to Physical Therapy [PT Evaluation and Cons 08/23/18 12:35 Active Treatment] [CONS] Routine Consult to Speech Language Pathology [FILL[employer]REDDING MACHINE LOADER Evaluation Cons 08/23/18 12:35 Active and Treatment] [CONS] Routine OT Evaluation and Treatment [CONS] Routine Cons 08/23/18 12:35 Active Regular Diet [DIET] Diet 08/23/18 Dinner Active Acetaminophen [Tylenol Arthritis Pain] Med 08/23/18 20:00 Active 1,300 mg PO Q12HR Albuterol/Ipratropium [DuoNeb 3.0-0.5 MG/3 ML] Med 08/23/18 12:35 Active 3 ml NEB Q4H PRN Albuterol/Ipratropium [DuoNeb 3.0-0.5 MG/3 ML] Med 08/23/18 16:00 Active 3 ml NEB QIDRT Azithromycin [Zithromax] Med 08/24/18 12:00 Active 500 mg PO DAILY@1200 Brimonidine [Alphagan 0.2% Ophth Soln] Med 08/23/18 20:00 Active 0 ml EYEBOTH Q12HR Docusate Sodium [Colace] Med 08/23/18 12:35 Active 100 mg PO DAILY PRN Enoxaparin [Lovenox] Med 08/24/18 08:00 Active 30 mg SUBCUT DAILY Finasteride [Proscar] Med 08/24/18 08:00 Active 5 mg PO DAILY Furosemide [Lasix] Med 08/24/18 08:00 Active 40 mg IVPUSH DAILY Latanoprost [Xalatan 0.005% Ophth Soln] Med 08/23/18 20:00 Active 0 ml EYEBOTH BEDTIME Levothyroxine Med 08/24/18 08:00 Active 75 mcg PO DAILY Magnesium Hydroxide [Milk of Magnesia] Med 08/23/18 12:35 Active 30 ml PO ASDIRECTED PRN Menthol/Methyl Salicylate [Icy Hot Cream] Med 08/23/18 12:35 Active 1 gm TOP ASDIRECTED PRN Metoprolol Tartrate [Lopressor] Med 08/23/18 18:00 Active 12.5 mg PO BID Ondansetron [Zofran] Med 08/23/18 12:35 Active 4 mg IVPUSH Q6H PRN Oxybutynin [Oxybutynin ER] Med 08/24/18 08:00 Active 15 mg PO DAILY Pantoprazole [ProTONIX IV] Med 08/23/18 20:00 Active 40 mg IVPUSH BEDTIME Sertraline [Zoloft] Med 08/24/18 08:00 Active 150 mg PO DAILY Simvastatin [Zocor] Med 08/23/18 20:00 Active 20 mg PO BEDTIME Sodium Chloride 0.9% [Saline Flush] Med 08/23/18 12:35 Active 10 ml FLUSH ASDIRECTED PRN Sodium Chloride 0.9% [Saline Flush] Med 08/23/18 12:35 Active 10 ml FLUSH ASDIRECTED PRN Sodium Chloride 0.9% [Saline Flush] Med 08/23/18 20:00 Active 10 ml FLUSH Q12HR Tamsulosin [Flomax] Med 08/23/18 20:00 Active 0.4 mg PO BEDTIME cefTRIAXone [Rocephin] Med 08/23/18 14:30 Active 1 gm IVPUSH Q12H metFORMIN [Glucophage] Med 08/23/18 17:30 Active 500 mg PO BIDMEALS methylPREDNISolone Sod Succ [Solu-MEDROL] Med 08/23/18 16:00 Active 40 mg IVPUSH Q8H metroNIDAZOLE/Normal Saline [Flagyl 500 MG in NS 100 ML Med 08/23/18 14:00 Active ] 500 mg Premix Bag 1 bag IV Q8H Antiembolic Hose [OM.PC] Per Unit Routine Oth 08/23/18 12:35 Ordered Saline Lock Insert [OM.PC] Routine Oth 08/23/18 12:35 Ordered Resuscitation Status Routine Resus Stat 08/23/18 12:39 Ordered Medication Orders Acetaminophen (Tylenol Arthritis Pain) 1,300 mg PO Q12HR [facility] Last Admin: 08/23/18 19:45 Dose: 1,300 mg Albuterol/Ipratropium (Duoneb 3.0-0.5 Mg/3 Ml) 3 ml NEB Q4H PRN PRN Reason: Dyspnea Albuterol/Ipratropium (Duoneb 3.0-0.5 Mg/3 Ml) 3 ml NEB QIDRT [facility] Last Admin: 08/23/18 19:43 Dose: 3 ml Admin: 08/23/18 16:48 Dose: 3 ml Azithromycin (Zithromax) 500 mg PO DAILY@1200 ANTOINETTE Brimonidine Tartrate (Alphagan 0.2% Ophth Soln) 0 ml EYEBOTH Q12HR [facility] Last Admin: 08/23/18 19:38 Dose: 1 drop Ceftriaxone Sodium (Rocephin) 1 gm IVPUSH Q12H [facility] Last Admin: 08/23/18 14:20 Dose: 1 gm Docusate Sodium (Colace) 100 mg PO DAILY PRN PRN Reason: Constipation Enoxaparin Sodium (Lovenox) 30 mg SUBCUT DAILY [facility] Finasteride (Proscar) 5 mg PO DAILY [facility] Furosemide (Lasix) 40 mg IVPUSH DAILY [facility] Metronidazole 500 mg/ Premix 100 mls @ 100 mls/hr IV Q8H [facility] Last Admin: 08/23/18 21:27 Dose: 100 mls/hr Infusion: 08/23/18 14:50 Dose: 100 mls/hr Admin: 08/23/18 13:50 Dose: 100 mls/hr Latanoprost (Xalatan 0.005% Ophth Soln) 0 ml EYEBOTH BEDTIME [facility] Last Admin: 08/23/18 19:38 Dose: 1 drop Levothyroxine Sodium (Levothyroxine) 75 mcg PO DAILY [facility] Magnesium Hydroxide (Milk Of Magnesia) 30 ml PO ASDIRECTED PRN PRN Reason: contipation Metformin HCl (Glucophage) 500 mg PO BIDMEALS [facility] Last Admin: 08/23/18 17:13 Dose: 500 mg Methyl Salicylate (Icy Hot Cream) 1 gm TOP ASDIRECTED PRN PRN Reason: Joint Pain Methylprednisolone Sodium Succinate (Solu-Medrol) 40 mg IVPUSH Q8H [facility] Last Admin: 08/23/18 16:47 Dose: 40 mg Metoprolol Tartrate (Lopressor) 12.5 mg PO BID [facility] Last Admin: 08/23/18 17:13 Dose: 12.5 mg Ondansetron HCl (Zofran) 4 mg IVPUSH Q6H PRN PRN Reason: Nausea/Vomiting Oxybutynin Chloride (Oxybutynin Er) 15 mg PO DAILY [facility] Pantoprazole Sodium (Protonix Iv) 40 mg IVPUSH BEDTIME [facility] Last Admin: 08/23/18 19:39 Dose: 40 mg Sertraline HCl (Zoloft) 150 mg PO DAILY [facility] Simvastatin (Zocor) 20 mg PO BEDTIME [facility] Last Admin: 08/23/18 19:47 Dose: 20 mg Sodium Chloride (Saline Flush) 10 ml FLUSH ASDIRECTED PRN PRN Reason: Keep Vein Open Last Admin: 08/23/18 21:28 Dose: 10 ml Admin: 08/23/18 17:07 Dose: 10 ml Sodium Chloride (Saline Flush) 10 ml FLUSH Q12HR [facility] Last Admin: 08/23/18 19:39 Dose: 10 ml Sodium Chloride (Saline Flush) 10 ml FLUSH ASDIRECTED PRN PRN Reason: Keep Vein Open Tamsulosin HCl (Flomax) 0.4 mg PO BEDTIME ANTOINETTE Last Admin: 08/23/18 19:47 Dose: 0.4 mg Assessment/Plan Comment:: 08/23/18 Arleen Brumfield MD Recent hospitalization for pneumonia, COPD, acute exacerbation with lower respiratory infection. He has been treated inpatient hospitalization with IV antibiotics, IV solumedrol, IV lasix. Inproving but he needs continued IV antibiotics and PT-OT-ST which he has not been compliant. We are unable to obtain the medically necessary medications today and unable to obtain transportation so he is improved and stable for swing bed.
[2018-08-24] MEDS: methylPREDNISolone Sodium Succinate 40 MG/1 ML SDV IVPUSH SCH ×4 (01:31→23:41)
[2018-08-24] MEDS: cefTRIAXone 1 GM Vial IVPUSH SCH ×2 (01:31→15:39)
[2018-08-24] MEDS: Sodium Chloride 0.9% 10 ML Syringe FLUSH PRN ×4 (01:31→23:43)
[2018-08-24] MEDS: metroNIDAZOLE/Normal Saline 500 MG in Premix Bag 1 BAG IV SCH ×3 (05:30→23:40)
[2018-08-24] MEDS: Levothyroxine 75 MCG Tab PO SCH (07:51)
[2018-08-24] MEDS: Acetaminophen 650 MG Tab.ER PO SCH ×2 (07:52→19:07)
[2018-08-24] MEDS: Oxybutynin 5 MG Tab.ER PO SCH (07:52)
[2018-08-24] MEDS: Albuterol/Ipratropium 3.0-0.5 MG/3 ML Neb Soln NEB SCH ×4 (07:53→19:07)
[2018-08-24] MEDS: Sertraline 50 MG Tab PO SCH (07:53)
[2018-08-24] MEDS: Metoprolol Tartrate 25 MG Tab PO SCH ×2 (07:54→18:12)
[2018-08-24] MEDS: metFORMIN 500 MG Tab PO SCH ×2 (07:55→18:12)
[2018-08-24] MEDS: Furosemide 40 MG/4 ML VIAL IVPUSH SCH (07:55)
[2018-08-24] MEDS: Finasteride 5 MG Tab PO SCH (07:55)
[2018-08-24] MEDS: Brimonidine 0.2% Ophth Soln 5 ML Bottle EYEBOTH SCH ×2 (07:58→19:06)
[2018-08-24] MEDS: Sodium Chloride 0.9% 10 ML Syringe FLUSH SCH ×2 (07:58→19:08)
[2018-08-24] MEDS: Enoxaparin 30 MG/0.3 ML Syringe SUBCUT SCH (07:58)
[2018-08-24] MEDS: Azithromycin 250 MG Tab PO SCH (11:33)
[2018-08-24] MEDS: Latanoprost 0.005% Ophth Soln 2.5 ML Bottle EYEBOTH SCH (19:06)
[2018-08-24] MEDS: Pantoprazole 40 MG Vial IVPUSH SCH (19:07)
[2018-08-24] MEDS: Tamsulosin 0.4 MG Cap.ER PO SCH (19:07)
[2018-08-24] MEDS: Simvastatin 20 MG Tab PO SCH (19:07)
[2018-08-25] MEDS: Sodium Chloride 0.9% 10 ML Syringe FLUSH PRN ×6 (02:34→15:38)
[2018-08-25] MEDS: cefTRIAXone 1 GM Vial IVPUSH SCH ×2 (02:51→15:38)
[2018-08-25] MEDS: metroNIDAZOLE/Normal Saline 500 MG in Premix Bag 1 BAG IV SCH ×3 (05:08→22:42)
[2018-08-25 07:13] LABS: CHLORIDE,CL 105 mmol/L (98-107); SODIUM,NA 142 mmol/L (136-145)
[2018-08-25] MEDS: Acetaminophen 650 MG Tab.ER PO SCH ×2 (07:50→22:53)
[2018-08-25] MEDS: Furosemide 40 MG/4 ML VIAL IVPUSH SCH (07:51)
[2018-08-25] MEDS: Oxybutynin 5 MG Tab.ER PO SCH (07:51)
[2018-08-25] MEDS: Albuterol/Ipratropium 3.0-0.5 MG/3 ML Neb Soln NEB SCH ×5 (07:51→22:52)
[2018-08-25] MEDS: methylPREDNISolone Sodium Succinate 40 MG/1 ML SDV IVPUSH SCH ×2 (07:51→22:52)
[2018-08-25] MEDS: metFORMIN 500 MG Tab PO SCH ×2 (07:52→18:13)
[2018-08-25] MEDS: Metoprolol Tartrate 25 MG Tab PO SCH ×2 (07:52→18:13)
[2018-08-25] MEDS: Enoxaparin 30 MG/0.3 ML Syringe SUBCUT SCH (07:52)
[2018-08-25] MEDS: Finasteride 5 MG Tab PO SCH (07:52)
[2018-08-25] MEDS: Levothyroxine 75 MCG Tab PO SCH (07:52)
[2018-08-25] MEDS: Sertraline 50 MG Tab PO SCH (07:52)
[2018-08-25] MEDS: Sodium Chloride 0.9% 10 ML Syringe FLUSH SCH ×2 (07:52→22:40)
[2018-08-25] MEDS: Brimonidine 0.2% Ophth Soln 5 ML Bottle EYEBOTH SCH ×2 (07:55→22:39)
[2018-08-25] MEDS: Azithromycin 250 MG Tab PO SCH ×2 (10:57→14:14)
[2018-08-25] MEDS: Simvastatin 20 MG Tab PO SCH (22:40)
[2018-08-25] MEDS: Tamsulosin 0.4 MG Cap.ER PO SCH (22:40)
[2018-08-25] MEDS: Pantoprazole 40 MG Vial IVPUSH SCH (22:40)
[2018-08-25] MEDS: Latanoprost 0.005% Ophth Soln 2.5 ML Bottle EYEBOTH SCH (22:41)
--- NOTE | 2018-08-25 23:22 | PCM.PN ---
- General Info Date of Service: 08/25/18 Admission Dx/Problem (Free Text): Admission Diagnosis/Problem Admission Diagnosis/Problem Pneumonia Functional Status: Reports: Pain Controlled - Review of Systems General: Reports: Weakness (improving) HEENT: Reports: No Symptoms Pulmonary: Reports: Cough Cardiovascular: Reports: No Symptoms Gastrointestinal: Reports: No Symptoms Genitourinary: Reports: No Symptoms Musculoskeletal: Reports: No Symptoms Skin: Reports: No Symptoms Neurological: Reports: Weakness Psychiatric: Reports: No Symptoms - Patient Data Vitals - Most Recent: Last Vital Signs Temp 98.8 F 08/25/18 19:37 Pulse 90 08/25/18 19:37 Resp 17 08/25/18 19:37 BP 120/54 L 08/25/18 19:37 Pulse Ox 94 L 08/25/18 19:37 Weight - Most Recent: 162 lb 0.001 oz I&O - Last 24 Hours: Intake & Output 08/25/18 08/25/18 08/26/18 14:59 22:59 06:59 Intake Total 610 540 Output Total 775 100 Balance -165 440 Lab Results Last 24 Hours: Laboratory Results - last 24 hr 08/25/18 08/25/18 08/25/18 Range/Units 06:38 06:38 06:58 WBC 12.1 H (4.0-10.2) K/uL RBC 3.89 L (4.33-5.41) M/uL Hgb 11.2 L (13.1-16.8) g/dL Hct 36.3 L (39.0-49.0) % MCV 93.3 (84.0-98.0) fL MCH 28.8 (28.2-33.3) pg MCHC 30.9 L (31.7-36.0) g/dL RDW 15.0 H (11.2-14.1) % Plt Count 304 (150-350) K/uL Neut % (Auto) 86.3 H (45.0-80.0) % Lymph % (Auto) 7.1 L (10.0-50.0) % Grainger % (Auto) 6.5 (2.0-14.0) % Eos % (Auto) 0.0 (0.0-5.0) % Baso % (Auto) 0.1 (0.0-2.0) % Neut # (Auto) 10.47 H (1.40-7.00) K/uL Lymph # (Auto) 0.86 (0.50-3.50) K/uL Grainger # (Auto) 0.79 (0.00-1.00) K/uL Eos # (Auto) 0.00 (0.00-0.50) K/uL Baso # (Auto) 0.01 (0.00-0.20) K/uL ESR 14 (0-30) mm/hr Sodium 142 (136-145) mmol/L Potassium 4.7 (3.5-5.1) mmol/L Chloride 105 (98-107) mmol/L Carbon Dioxide 30.1 (21.0-32.0) mmol/L BUN 32 H (7-18) mg/dL Creatinine 0.88 (0.51-1.17) mg/dL Est Cr Clr Drug Dosing 54.25 mL/min Estimated GFR (MDRD) > 60 mL/min Glucose 161 H (74-106) mg/dL POC Glucose 153 H (65-110) mg/dl Calcium 9.2 (8.5-10.1) mg/dL Total Bilirubin 0.2 (0.2-1.0) mg/dL AST 13 L (15-37) U/L ALT 22 (12-78) U/L Alkaline Phosphatase 73 (46-116) IU/L C-Reactive Protein 0.2 (<=0.9) mg/dL Total Protein 6.0 L (6.4-8.2) g/dL Albumin 3.0 L (3.4-5.0) g/dL 08/25/18 Range/Units 17:40 WBC (4.0-10.2) K/uL RBC (4.33-5.41) M/uL Hgb (13.1-16.8) g/dL Hct (39.0-49.0) % MCV (84.0-98.0) fL MCH (28.2-33.3) pg MCHC (31.7-36.0) g/dL RDW (11.2-14.1) % Plt Count (150-350) K/uL Neut % (Auto) (45.0-80.0) % Lymph % (Auto) (10.0-50.0) % Grainger % (Auto) (2.0-14.0) % Eos % (Auto) (0.0-5.0) % Baso % (Auto) (0.0-2.0) % Neut # (Auto) (1.40-7.00) K/uL Lymph # (Auto) (0.50-3.50) K/uL Grainger # (Auto) (0.00-1.00) K/uL Eos # (Auto) (0.00-0.50) K/uL Baso # (Auto) (0.00-0.20) K/uL ESR (0-30) mm/hr Sodium (136-145) mmol/L Potassium (3.5-5.1) mmol/L Chloride (98-107) mmol/L Carbon Dioxide (21.0-32.0) mmol/L BUN (7-18) mg/dL Creatinine (0.51-1.17) mg/dL Est Cr Clr Drug Dosing mL/min Estimated GFR (MDRD) mL/min Glucose (74-106) mg/dL POC Glucose 181 H (65-110) mg/dl Calcium (8.5-10.1) mg/dL Total Bilirubin (0.2-1.0) mg/dL AST (15-37) U/L ALT (12-78) U/L Alkaline Phosphatase (46-116) IU/L C-Reactive Protein (<=0.9) mg/dL Total Protein (6.4-8.2) g/dL Albumin (3.4-5.0) g/dL Med Orders - Current: Current Medications Acetaminophen (Tylenol Arthritis Pain) 1,300 mg PO Q12HR [facility] Last Admin: 08/25/18 22:53 Dose: 1,300 mg Albuterol/Ipratropium (Duoneb 3.0-0.5 Mg/3 Ml) 3 ml NEB Q4H PRN PRN Reason: Dyspnea Albuterol/Ipratropium (Duoneb 3.0-0.5 Mg/3 Ml) 3 ml NEB QIDRT [facility] Last Admin: 08/25/18 22:52 Dose: 3 ml Azithromycin (Zithromax) 500 mg PO DAILY@1200 [facility] Last Admin: 08/25/18 14:14 Dose: Not Given Brimonidine Tartrate (Alphagan 0.2% Ophth Soln) 0 ml EYEBOTH Q12HR [facility] Last Admin: 08/25/18 22:39 Dose: 1 drop Ceftriaxone Sodium (Rocephin) 1 gm IVPUSH Q12H [facility] Last Admin: 08/25/18 15:38 Dose: 1 gm Docusate Sodium (Colace) 100 mg PO DAILY PRN PRN Reason: Constipation Enoxaparin Sodium (Lovenox) 30 mg SUBCUT DAILY [facility] Last Admin: 08/25/18 07:52 Dose: 30 mg Finasteride (Proscar) 5 mg PO DAILY [facility] Last Admin: 08/25/18 07:52 Dose: 5 mg Furosemide (Lasix) 40 mg IVPUSH DAILY [facility] Last Admin: 08/25/18 07:51 Dose: 40 mg Metronidazole 500 mg/ Premix 100 mls @ 100 mls/hr IV Q8H [facility] Last Admin: 08/25/18 22:42 Dose: 100 mls/hr Latanoprost (Xalatan 0.005% Oph Soln) 0 ml EYEBOTH BEDTIME [facility] Last Admin: 08/25/18 22:41 Dose: 1 drop Levothyroxine Sodium (Levothyroxine) 75 mcg PO DAILY [facility] Last Admin: 08/25/18 07:52 Dose: 75 mcg Magnesium Hydroxide (Milk Of Magnesia) 30 ml PO ASDIRECTED PRN PRN Reason: contipation Metformin HCl (Glucophage) 500 mg PO BIDMEALS [facility] Last Admin: 08/25/18 18:13 Dose: 500 mg Methyl Salicylate (Icy Hot Cream) 1 gm TOP ASDIRECTED PRN PRN Reason: Joint Pain Methylprednisolone Sodium Succinate (Solu-Medrol) 40 mg IVPUSH Q12HR [facility] Last Admin: 08/25/18 22:52 Dose: 40 mg Metoprolol Tartrate (Lopressor) 12.5 mg PO BID [facility] Last Admin: 08/25/18 18:13 Dose: 12.5 mg Ondansetron HCl (Zofran) 4 mg IVPUSH Q6H PRN PRN Reason: Nausea/Vomiting Oxybutynin Chloride (Oxybutynin Er) 15 mg PO DAILY [facility] Last Admin: 08/25/18 07:51 Dose: 15 mg Pantoprazole Sodium (Protonix Iv) 40 mg IVPUSH BEDTIME [facility] Last Admin: 08/25/18 22:40 Dose: 40 mg Sertraline HCl (Zoloft) 150 mg PO DAILY [facility] Last Admin: 08/25/18 07:52 Dose: 150 mg Simvastatin (Zocor) 20 mg PO BEDTIME [facility] Last Admin: 08/25/18 22:40 Dose: 20 mg Sodium Chloride (Saline Flush) 10 ml FLUSH ASDIRECTED PRN PRN Reason: Keep Vein Open Last Admin: 08/25/18 15:38 Dose: 10 ml Sodium Chloride (Saline Flush) 10 ml FLUSH Q12HR [facility] Last Admin: 08/25/18 22:40 Dose: 10 ml Sodium Chloride (Saline Flush) 10 ml FLUSH ASDIRECTED PRN PRN Reason: Keep Vein Open Last Admin: 08/25/18 05:09 Dose: 10 ml Tamsulosin HCl (Flomax) 0.4 mg PO BEDTIME [facility] Last Admin: 08/25/18 22:40 Dose: 0.4 mg Discontinued Medications Methylprednisolone Sodium Succinate (Solu-Medrol) 40 mg IVPUSH Q8H [facility] Last Admin: 08/25/18 07:51 Dose: 40 mg - Exam Quality Assessment: DVT Prophylaxis General: Alert, Cooperative HEENT: Mucous Membr. Moist/[place] Neck: Trachea Midline, No JVD Lungs: Normal Respiratory Effort, Decreased Breath Sounds Cardiovascular: Regular Rate, Regular Rhythm GI/Abdominal Exam: Soft, Non-Tender, No Distention (Male) Exam: Deferred Back Exam: Normal Inspection Extremities: Normal Inspection, Non-Tender Skin: Warm, Dry, Intact Neurological: No New Focal Deficit Psy/Mental Status: Alert, Depressed - Problem List & Annotations (1) Pneumonia SNOMED Code(s): 538180781 Code(s): J18.9 - PNEUMONIA, UNSPECIFIED ORGANISM Status: Acute Priority: High Current Visit: No Onset Date: ~06/09/18 Qualifiers: Pneumonia type: aspiration pneumonia Aspiration pneumonia type: due to gastric secretions Laterality: left Lung location: lower lobe of lung Qualified Code(s): J69.0 - Pneumonitis due to inhalation of food and vomit Annotation/Comment:: Probable left lower lobe pneumonia with IV Rocephin initiated as above. (2) COPD (chronic obstructive pulmonary disease) SNOMED Code(s): 35320426 Code(s): J44.9 - CHRONIC OBSTRUCTIVE PULMONARY DISEASE, UNSPECIFIED Status : Acute Priority: High Current Visit: No Onset Date: 06/09/18 Qualifiers: COPD type: COPD with acute lower respiratory infection Qualified Code(s): J44.0 - Chronic obstructive pulmonary disease with acute lower respiratory infection (3) Ventral hernia without obstruction or gangrene SNOMED Code(s): 357812799 Code(s): K43.9 - VENTRAL HERNIA WITHOUT OBSTRUCTION OR GANGRENE Status: Acute Priority: Medium Current Visit: Yes (4) Renal insufficiency SNOMED Code(s): 761993659, 937780487 Code(s): N28.9 - DISORDER OF KIDNEY AND URETER, UNSPECIFIED Status: Acute Priority: Medium Current Visit: No Onset Date: 06/09/18 (5) BPH (benign prostatic hypertrophy) SNOMED Code(s): 440099019 Code(s): N40.0 - BENIGN PROSTATIC HYPERPLASIA WITHOUT LOWER URINRY TRACT SYMP Status: Chronic Priority: High Current Visit: No Qualifiers: Lower urinary tract symptom presence: symptoms present Lower urinary tract symptom detail: unspecified Qualified Code(s): N40.1 - Benign prostatic hyperplasia with lower urinary tract symptoms (6) Diabetes SNOMED Code(s): 42963323 Code(s): E11.9 - TYPE 2 DIABETES MELLITUS WITHOUT COMPLICATIONS Status: Chronic Priority: Medium Current Visit: No Qualifiers: Diabetes mellitus type: type 2 Diabetes mellitus 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 insulin use: without apprentice 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 use Diabetes mellitus complication status: with kidney complications Diabetes mellitus complication detail: with chronic kidney disease Chronic kidney disease stage: stage 3 (moderate) Qualified Code(s): E11.22 - Type 2 diabetes mellitus with diabetic chronic kidney disease; N18.3 - Chronic kidney disease, stage 3 (moderate) (7) Hypertension SNOMED Code(s): 78412295 Code(s): I10 - ESSENTIAL (PRIMARY) HYPERTENSION Status: Chronic Priority : Medium Current Visit: No Qualifiers: Hypertension type: essential hypertension Qualified Code(s): I10 - Essential (primary) hypertension (8) Mixed anxiety depressive disorder SNOMED Code(s): 495800516 Code(s): F41.8 - OTHER SPECIFIED ANXIETY DISORDERS Status: Chronic Priority: Medium Current Visit: No (9) Osteoarthritis SNOMED Code(s): 009954103 Code(s): M19.90 - UNSPECIFIED OSTEOARTHRITIS, UNSPECIFIED SITE Status: Chronic Priority: Medium Current Visit: No Qualifiers: Osteoarthritis location: multiple joints Osteoarthritis type: primary Qualified Code(s): M15.0 - Primary generalized (osteo)arthritis (10) Parkinsons disease SNOMED Code(s): 82195252 Code(s): G20 - PARKINSON'S DISEASE Status: Chronic Priority: Medium Current Visit: No Onset Date: ~06/09/18 (11) Peptic reflux disease SNOMED Code(s): 822115559 Code(s): K21.9 - GASTRO-ESOPHAGEAL REFLUX DISEASE WITHOUT ESOPHAGITIS Status: Chronic Priority: Medium Current Visit: No (12) Generalized muscle weakness SNOMED Code(s): 60436068, 18972293 Code(s): M62.81 - MUSCLE WEAKNESS (GENERALIZED) Status: Acute Priority: High Current Visit: Yes - Problem List Review Problem List Initiated/Reviewed/Updated: Yes - My Orders Last 24 Hours: My Active Orders 08/25/18 05:11 Chest 2V [CR] Routine 08/25/18 20:00 methylPREDNISolone Sod Succ [Solu-MEDROL] 40 mg IVPUSH Q12HR - Plan Plan:: 08/23/18 Arleen Brumfield MD Recent hospitalization for pneumonia, COPD, acute exacerbation with lower respiratory infection. He has been treated inpatient hospitalization with IV antibiotics, IV solumedrol, IV lasix. Inproving but he needs continued IV antibiotics and PT-OT-ST which he has not been compliant. We are unable to obtain the medically necessary medications today at the [facility] and unable to obtain transportation so he is improved and stable for swing bed. 08/25/18 Arleen Brumfield MD He is feeling some better. Medications discussed. Discharge plan discussed with him and PT and care coordination.
[2018-08-26] MEDS: Sodium Chloride 0.9% 10 ML Syringe FLUSH PRN ×3 (02:25→05:41)
[2018-08-26] MEDS: cefTRIAXone 1 GM Vial IVPUSH SCH (02:25)
[2018-08-26] MEDS: metroNIDAZOLE/Normal Saline 500 MG in Premix Bag 1 BAG IV SCH (05:41)
[2018-08-26] MEDS: Oxybutynin 5 MG Tab.ER PO SCH (07:43)
[2018-08-26] MEDS: metFORMIN 500 MG Tab PO SCH (07:44)
[2018-08-26] MEDS: Levothyroxine 75 MCG Tab PO SCH (07:44)
[2018-08-26] MEDS: Sertraline 50 MG Tab PO SCH (07:44)
[2018-08-26] MEDS: Finasteride 5 MG Tab PO SCH (07:44)
[2018-08-26] MEDS: Acetaminophen 650 MG Tab.ER PO SCH (07:45)
[2018-08-26] MEDS: Metoprolol Tartrate 25 MG Tab PO SCH (07:46)
[2018-08-26] MEDS: Furosemide 40 MG/4 ML VIAL IVPUSH SCH (07:47)
[2018-08-26] MEDS: Albuterol/Ipratropium 3.0-0.5 MG/3 ML Neb Soln NEB SCH (07:50)
[2018-08-26 07:51] VITALS: BP 121/57
[2018-08-26] MEDS: methylPREDNISolone Sodium Succinate 40 MG/1 ML SDV IVPUSH SCH (07:51)
[2018-08-26] MEDS: Enoxaparin 30 MG/0.3 ML Syringe SUBCUT SCH (07:51)
[2018-08-26] MEDS: Sodium Chloride 0.9% 10 ML Syringe FLUSH SCH (07:59)
[2018-08-26] MEDS: Brimonidine 0.2% Ophth Soln 5 ML Bottle EYEBOTH SCH (08:06)
--- NOTE | 2018-08-26 15:32 | PCM.DCSUM1 ---
Discharge Summary - Hospital Course Diagnosis: Stroke: No - Discharge Data Discharge Date: 08/26/18 Discharge Disposition: DC/Tfer to SNF 03 Condition: Fair - Discharge Diagnosis/Problem(s) (1) Pneumonia SNOMED Code(s): 268470835 ICD Code: J18.9 - PNEUMONIA, UNSPECIFIED ORGANISM Status: Acute Priority : High Onset Date: ~06/09/18 Problem Details: Probable left lower lobe pneumonia with IV Rocephin initiated as above. Qualifiers: Pneumonia type: aspiration pneumonia Aspiration pneumonia type: due to gastric secretions Laterality: left Lung location: lower lobe of lung Qualified Code(s): J69.0 - Pneumonitis due to inhalation of food and vomit (2) COPD (chronic obstructive pulmonary disease) SNOMED Code(s): 16964165 ICD Code: J44.9 - CHRONIC OBSTRUCTIVE PULMONARY DISEASE, UNSPECIFIED Status : Acute Priority: High Onset Date: 06/09/18 Qualifiers: COPD type: COPD with acute lower respiratory infection Qualified Code(s): J44.0 - Chronic obstructive pulmonary disease with acute lower respiratory infection (3) Ventral hernia without obstruction or gangrene SNOMED Code(s): 111319999 ICD Code: K43.9 - VENTRAL HERNIA WITHOUT OBSTRUCTION OR GANGRENE Status: Acute Priority: Medium (4) Renal insufficiency SNOMED Code(s): 920188896, 757927344 ICD Code: N28.9 - DISORDER OF KIDNEY AND URETER, UNSPECIFIED Status: Acute Priority: Medium Onset Date: 06/09/18 (5) BPH (benign prostatic hypertrophy) SNOMED Code(s): 772131344 ICD Code: N40.0 - BENIGN PROSTATIC HYPERPLASIA WITHOUT LOWER URINRY TRACT SYMP Status: Chronic Priority: High Qualifiers: Lower urinary tract symptom presence: symptoms present Lower urinary tract symptom detail: unspecified Qualified Code(s): N40.1 - Benign prostatic hyperplasia with lower urinary tract symptoms (6) Diabetes SNOMED Code(s): 62272146 ICD Code: E11.9 - TYPE 2 DIABETES MELLITUS WITHOUT COMPLICATIONS Status: Chronic Priority: Medium Qualifiers: Diabetes mellitus type: type 2 Diabetes mellitus 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 insulin use: without fci use Diabetes mellitus complication status: with kidney complications Diabetes mellitus complication detail: with chronic kidney disease Chronic kidney disease stage: stage 3 (moderate) Qualified Code(s): E11.22 - Type 2 diabetes mellitus with diabetic chronic kidney disease; N18.3 - Chronic kidney disease, stage 3 (moderate) (7) Hypertension SNOMED Code(s): 86785544 ICD Code: I10 - ESSENTIAL (PRIMARY) HYPERTENSION Status: Chronic Priority : Medium Qualifiers: Hypertension type: essential hypertension Qualified Code(s): I10 - Essential (primary) hypertension (8) Mixed anxiety depressive disorder SNOMED Code(s): 808307806 ICD Code: F41.8 - OTHER SPECIFIED ANXIETY DISORDERS Status: Chronic Priority: Medium (9) Osteoarthritis SNOMED Code(s): 029728813 ICD Code: M19.90 - UNSPECIFIED OSTEOARTHRITIS, UNSPECIFIED SITE Status: Chronic Priority: Medium Qualifiers: Osteoarthritis location: multiple joints Osteoarthritis type: primary Qualified Code(s): M15.0 - Primary generalized (osteo)arthritis (10) Parkinsons disease SNOMED Code(s): 36598529 ICD Code: G20 - PARKINSON'S DISEASE Status: Chronic Priority: Medium Onset Date: ~06/09/18 (11) Peptic reflux disease SNOMED Code(s): 811234384 ICD Code: K21.9 - GASTRO-ESOPHAGEAL REFLUX DISEASE WITHOUT ESOPHAGITIS Status: Chronic Priority: Medium (12) Generalized muscle weakness SNOMED Code(s): 99010610, 08973420 ICD Code: M62.81 - MUSCLE WEAKNESS (GENERALIZED) Status: Acute Priority: High (13) Comfort measures only status SNOMED Code(s): 59699737674059 ICD Code: Z51.5 - ENCOUNTER FOR PALLIATIVE CARE Status: Acute Priority: High - Patient Summary/Data Consults: Consultations 08/23/18 12:35 Consult to Case Management/[employer] [CONS] Routine Consult to Physical Therapy [PT Evaluation and Treatment] [CONS] Routine Consult to Speech Language Pathology [CRISIS MENTAL HEALTH THERAPIST Evaluation and Treatment] [CONS] Routine OT Evaluation and Treatment [CONS] Routine - Patient Instructions Diet: Diabetic Diet Activity: As Tolerated Driving: Do Not Drive Showering/Bathing: May Shower Other/Special Instructions: Referral to PT-OT-CRISIS MENTAL HEALTH THERAPIST (Speech) to evaluate and treat. - Discharge Plan *PRESCRIPTION DRUG MONITORING PROGRAM REVIEWED*: Not Applicable *COPY OF PRESCRIPTION DRUG MONITORING REPORT IN PATIENT MARLENE: Not Applicable Prescriptions/Med Rec: Albuterol/Ipratropium [DuoNeb 3.0-0.5 MG/3 ML] 3 ml NEB Q4H PRN #30 neb PRN Reason: Dyspnea Albuterol/Ipratropium [DuoNeb 3.0-0.5 MG/3 ML] 3 ml NEB BID #60 neb Cefuroxime Axetil [Ceftin] 500 mg PO BID #11 tablet metroNIDAZOLE [Metronidazole] 500 mg PO TID #16 tablet predniSONE [Prednisone] 20 mg PO DAILY #30 tablet Sertraline [Zoloft] 150 mg PO DAILY #90 tablet Home Medications: Home Meds Aspirin [Halfprin] 81 mg PO QAM 09/19/14 [History] Brimonidine Tartrate [Brimonidine Tartrate 0.2% Ophth Soln] 1 drop EYEBOTH Q12H 09/19/14 [History] Cholecalciferol (Vitamin D3) [Vitamin D3] 400 unit PO QAM 09/19/14 [History] Latanoprost [Xalatan 0.005% Ophth Soln] 1 drop EYEBOTH BEDTIME 09/19/14 [History ] Simvastatin [Zocor] 20 mg PO BEDTIME 09/19/14 [History] Acetaminophen [Tylenol Arthritis Pain] 1,300 mg PO Q12H 05/26/15 [History] Diclofenac Sodium [Voltaren 1% Gel] 1 applic TOP QID@08,12,16,20 05/26/15 [ History] Clopidogrel Bisulfate [Clopidogrel] 1 tab PO DAILY 08/15/15 [History] Finasteride [Proscar] 1 tab PO DAILY 08/15/15 [History] Tamsulosin HCl [Flomax] 1 cap PO BEDTIME 08/15/15 [History] Methyl Salicylate/Menthol [Thera-Gesic Analgesic] 1 applic TOP ASDIRECTED PRN [History] Levothyroxine 75 mcg PO ACBREAKFAST 08/01/16 [History] Magnesium Hydroxide [Milk of Magnesia] 30 ml PO ASDIRECTED PRN 08/02/16 [History ] Omeprazole Magnesium [Prilosec Otc] 20 mg PO DAILY 06/13/17 [History] metFORMIN [Glucophage] 500 mg PO Q12H 06/13/17 [History] Docusate Sodium [Colace] 100 mg PO DAILY PRN 06/09/18 [History] Metoprolol Tartrate 12.5 mg PO BID 07/03/18 [History] Oxybutynin Chloride [Oxybutynin Chloride ER] 1 tab PO DAILY 07/03/18 [History] Furosemide [Lasix] 20 mg PO DAILY 08/19/18 [History] Albuterol/Ipratropium [DuoNeb 3.0-0.5 MG/3 ML] 3 ml NEB BID #60 neb 08/25/18 [Rx ] Albuterol/Ipratropium [DuoNeb 3.0-0.5 MG/3 ML] 3 ml NEB Q4H PRN #30 neb [Rx] Sertraline [Zoloft] 150 mg PO DAILY #90 tablet 08/25/18 [Rx] metroNIDAZOLE [Metronidazole] 500 mg PO TID #16 tablet 08/25/18 [Rx] predniSONE [Prednisone] 20 mg PO DAILY #30 tablet 08/25/18 [Rx] Cefuroxime Axetil [Ceftin] 500 mg PO BID #11 tablet 08/26/18 [Rx] Oxygen Therapy Mode: Room Air - Discharge Summary/Plan Comment DC Time >30 min.: No - Patient Data Vitals - Most Recent: Last Vital Signs Temp 97.7 F 08/26/18 08:00 Pulse 74 08/26/18 08:00 Resp 18 08/26/18 08:00 BP 121/57 L 08/26/18 07:46 Pulse Ox 96 08/26/18 08:00 Weight - Most Recent: 156 lb 9.6 oz I&O - Last 24 hours: Intake & Output 08/26/18 08/26/18 08/26/18 06:59 14:59 22:59 Intake Total 200 360 Output Total 750 750 Balance -550 -390 Lab Results - Last 24 hrs: Laboratory Results - last 24 hr 08/25/18 08/26/18 Range/Units 17:40 07:14 POC Glucose 181 H 162 H (65-110) mg/dl Med Orders - Current: Current Medications Discontinued Medications Acetaminophen (Tylenol Arthritis Pain) 1,300 mg PO Q12HR [facility] Last Admin: 08/26/18 07:45 Dose: 1,300 mg Albuterol/Ipratropium (Duoneb 3.0-0.5 Mg/3 Ml) 3 ml NEB Q4H PRN PRN Reason: Dyspnea Albuterol/Ipratropium (Duoneb 3.0-0.5 Mg/3 Ml) 3 ml NEB QIDRT [facility] Last Admin: 08/26/18 07:50 Dose: 3 ml Azithromycin (Zithromax) 500 mg PO DAILY@1200 [facility] Last Admin: 08/25/18 14:14 Dose: Not Given Brimonidine Tartrate (Alphagan 0.2% Oph Soln) 0 ml EYEBOTH Q12HR [facility] Last Admin: 08/26/18 08:06 Dose: 1 drop Ceftriaxone Sodium (Rocephin) 1 gm IVPUSH Q12H [facility] Last Admin: 08/26/18 02:25 Dose: 1 gm Docusate Sodium (Colace) 100 mg PO DAILY PRN PRN Reason: Constipation Enoxaparin Sodium (Lovenox) 30 mg SUBCUT DAILY [facility] Last Admin: 08/26/18 07:51 Dose: 30 mg Finasteride (Proscar) 5 mg PO DAILY [facility] Last Admin: 08/26/18 07:44 Dose: 5 mg Furosemide (Lasix) 40 mg IVPUSH DAILY [facility] Last Admin: 08/26/18 07:47 Dose: 40 mg Metronidazole 500 mg/ Premix 100 mls @ 100 mls/hr IV Q8H [facility] Last Admin: 08/26/18 05:41 Dose: 100 mls/hr Latanoprost (Xalatan 0.005% [facility] Sol) 0 ml EYEBOTH BEDTIME [facility] Last Admin: 08/25/18 22:41 Dose: 1 drop Levothyroxine Sodium (Levothyroxine) 75 mcg PO DAILY [facility] Last Admin: 08/26/18 07:44 Dose: 75 mcg Magnesium Hydroxide (Milk Of Magnesia) 30 ml PO ASDIRECTED PRN PRN Reason: contipation Metformin HCl (Glucophage) 500 mg PO BIDMEALS [facility] Last Admin: 08/26/18 07:44 Dose: 500 mg Methyl Salicylate (Icy Hot Cream) 1 gm TOP ASDIRECTED PRN PRN Reason: Joint Pain Methylprednisolone Sodium Succinate (Solu-Medrol) 40 mg IVPUSH Q8H [facility] Last Admin: 08/25/18 07:51 Dose: 40 mg Methylprednisolone Sodium Succinate (Solu-Medrol) 40 mg IVPUSH Q12HR [facility] Last Admin: 08/26/18 07:51 Dose: 40 mg Metoprolol Tartrate (Lopressor) 12.5 mg PO BID [facility] Last Admin: 08/26/18 07:46 Dose: 12.5 mg Ondansetron HCl (Zofran) 4 mg IVPUSH Q6H PRN PRN Reason: Nausea/Vomiting Oxybutynin Chloride (Oxybutynin Er) 15 mg PO DAILY [facility] Last Admin: 08/26/18 07:43 Dose: 15 mg Pantoprazole Sodium (Protonix Iv) 40 mg IVPUSH BEDTIME [facility] Last Admin: 08/25/18 22:40 Dose: 40 mg Sertraline HCl (Zoloft) 150 mg PO DAILY [facility] Last Admin: 08/26/18 07:44 Dose: 150 mg Simvastatin (Zocor) 20 mg PO BEDTIME [facility] Last Admin: 08/25/18 22:40 Dose: 20 mg Sodium Chloride (Saline Flush) 10 ml FLUSH ASDIRECTED PRN PRN Reason: Keep Vein Open Last Admin: 08/26/18 05:41 Dose: 10 ml Sodium Chloride (Saline Flush) 10 ml FLUSH Q12HR [facility] Last Admin: 08/26/18 07:59 Dose: 10 ml Sodium Chloride (Saline Flush) 10 ml FLUSH ASDIRECTED PRN PRN Reason: Keep Vein Open Last Admin: 08/25/18 05:09 Dose: 10 ml Tamsulosin HCl (Flomax) 0.4 mg PO BEDTIME [facility] Last Admin: 08/25/18 22:40 Dose: 0.4 mg
== END 2018-08-26 10:58 | DRG 178 ==
LOC: LL.MS 08-23 13:00
PROVIDERS: ADMIT Family Medicine; ATTEND Family Medicine
DX: J69.0 Pneumonitis due to inhalation of food and vomit (principal); I13.0 Hypertensive heart and chronic kidney disease with heart failure and stage 1 through stage 4 chronic kidney disease, or unspecified chronic kidney disease; J44.0 Chronic obstructive pulmonary disease with (acute) lower respiratory infection; Z51.5 Encounter for palliative care; J30.9 Allergic rhinitis, unspecified; H40.9 Unspecified glaucoma; I50.9 Heart failure, unspecified; J44.9 Chronic obstructive pulmonary disease, unspecified; K21.9 Gastro-esophageal reflux disease without esophagitis; I25.10 Atherosclerotic heart disease of native coronary artery without angina pectoris; E03.9 Hypothyroidism, unspecified; G89.29 Other chronic pain; Z96.1 Presence of intraocular lens; K43.9 Ventral hernia without obstruction or gangrene; N40.1 Benign prostatic hyperplasia with lower urinary tract symptoms; G20 Parkinson's disease; M62.81 Muscle weakness (generalized); E11.22 Type 2 diabetes mellitus with diabetic chronic kidney disease; N18.3 Chronic kidney disease, stage 3 (moderate); F41.8 Other specified anxiety disorders; M15.0 Primary generalized (osteo)arthritis; Z88.0 Allergy status to penicillin; Z88.1 Allergy status to other antibiotic agents; Z86.73 Personal history of transient ischemic attack (TIA), and cerebral infarction without residual deficits; Z91.041 Radiographic dye allergy status; Z87.11 Personal history of peptic ulcer disease; Z98.49 Cataract extraction status, unspecified eye; Z79.82 Long term (current) use of aspirin; Z79.84 Long term (current) use of oral hypoglycemic drugs
CPT/HCPCS: 36415; 71046; 80053; 82962; 85025; 85652; 86140; 92526-GN; 92610-GN; 94640; 97110-GP; 97161-GP; A4217; A9270-GY; C9113; J0696; J1650; J1940; J2920; J3490; J7620-GY